=== PATIENT | female | born 1930 | race Caucasian/White ===

== ENCOUNTER 2016-08-27 14:51 | Emergency (ER) | payer OTHER, MEDICARE ==
[~2016-08-27] VITALS: Ht 160 cm; Wt 84.8 kg
[~2016-08-27 14:51] MED LIST: ALPRAZOLAM0.5 M4 PO; AZITHROMYCIN500 M3 PO; CYMBALTA30 M1 PO; LISINOPRIL40 M1 PO; MIRALAX119 GM PO; PREDNISONE10 M2 PO; PRILOSEC40 MG PO; SENNA PLUS TAB1 EACH PO; SUCRALFATE1 GM PO; SYMBICORT 16010.2 GM INH
--- NOTE | 2016-08-27 16:26 | ED DYSPNEA/ASTHMA COMPLAINT ---
History of Present Illness General Chief Complaint: Wheezing/Asthma Stated Complaint: SOB Source: patient, family, old records Exam Limitations: no limitations Vital Signs & Intake/Output Vital Signs & Intake/Output Vital Signs Date Time Temp Pulse Resp B/P Pulse O2 O2 Flow FiO2 Ox Delivery Rate 08/27 1701 90 22 136/68 97 Nasal 1.0L Cannula 08/27 1619 96 Nasal 1.0L Cannula 08/27 1525 97.7 98 18 143/76 89 Room Air Allergies Coded Allergies: Penicillins (VAGINAL ITCH 06/11/16) prednisone (DEPRESSION 06/11/16) Reconcile Medications Alprazolam 0.5 MG TABLET 0.5 MG PO TID PRN ANXIETY (Reported) Azithromycin 500 MG TABLET 1 TAB PO DAILY COPD Budesonide/Formoterol Fumarate (Symbicort 160-4.5 Mcg Inhaler) 160 MCG-4.5 MCG/ ACTUATION HFA.AER.AD 2 PUF INH BID COPD (Reported) Duloxetine Hydrochloride (Cymbalta) 30 MG CAPSULE.DR 1 CAP PO DAILY ANXIETY ( Reported) Lisinopril 40 MG TABLET 40 MG PO DAILY AC HIGH BLOOD PRESSURE (Reported) Omeprazole (Prilosec) 40 MG ECC 1 TAB PO DAILY GERD Polyethylene Glycol 3350 (Miralax) 17 GRAM/DOSE POWDER 17 GM PO DAILY PRN CONSTIPATION Prednisone 10 MG TABLET 1 TAB PO SI COPD TAKE 4TABLETS FOR 2DAYS TAKE 3TABLETS FOR 2DAYS TAKE 2TABLETS FOR 2DAYS TAKE 1TABLET FOR 2DAYS THEN STOP PREDNISONE Sennosides/Docusate Sodium (Senna Plus Tablet) 8.6 MG-50 MG TABLET 2 TAB PO DAILY PRN CONSTIPATION Sucralfate 1 GRAM TABLET 1 TAB PO TID GERD Triage Note: PT C/O SOB FOR THE PAST FEW DAYS. PT STATES SHE HAS BRONCHIAL ASTHMA AND IS ON INHALERS BUT SHE IS GETTING INCREASED SOB WITH ACTIVITY THAT STARTED TODAY. Triage Nurses Notes Reviewed? yes Onset: 2 days Duration: day(s):, continues in ED, getting worse Timing: recent history Severity: severe Activities at Onset: rest Prior Episodes/Possible Cause: occasional episodes, illness exposure Modifying Factors: Improves With: rest. Worsens With: movement. Associated Symptoms: cough, wheezing, weakness LMP (ages 10-50): post menopausal : No Patient currently breastfeeds: No HPI: 3-4 weeks prior to admission patient complains of productive cough shortness of breath resolving on its own only to recur several days prior to admission with dyspnea on exertion wheezing fatigue. She was started on Ceclor 5 days ago. She denies fever chills nausea vomiting diarrhea abdominal pain chest pain headache dysuria rash bleeding Past History Travel History Traveled to [place] past 21 day No Medical History Any Pertinent Medical History? see below for history Neurological: NONE EENT: NONE Cardiovascular: HTN, Respiratory: COPD, ASTHMA Gastrointestinal: GERD, HIATAL HERNIA Hepatic: NONE Renal: NONE Musculoskeletal: NONE Psychiatric: anxiety Endocrine: NONE Blood Disorders: NONE History of MRSA: No History of VRE: No History of CDIFF: No Pneumonia Vaccine: 05/31/14 Influenza Vaccine: 04/30/16 Surgical History Surgical History: non-contributory Psychosocial History Who do you live with Family What is your primary language Norwegian Tobacco Use: Quit >30 days ago ETOH Use: denies use Illicit Drug Use: denies illicit drug use Family History Family History, If Any: MOTHER (uterine cancer). FATHER (Heart disease). Hx Contributory? No Review of Systems Review of Systems Constitutional: Reports: no symptoms. EENTM: Reports: no symptoms. Respiratory: Reports: see HPI, short of breath, sputum production, wheezing. Cardiovascular: Reports: no symptoms. GI: Reports: no symptoms. Genitourinary: Reports: no symptoms. Musculoskeletal: Reports: no symptoms. Skin: Reports: no symptoms. Neurological/Psychological: Reports: no symptoms. Hematologic/Endocrine: Reports: no symptoms. Immunologic/Allergic: Reports: no symptoms. All Other Systems: Reviewed and Negative Physical Exam Physical Exam General Appearance: well developed/nourished, alert, awake, anxious, severe distress, obese Head: atraumatic, normal appearance Eyes: Bilateral: normal appearance, PERRL, EOMI. Ears, Nose, Throat: normal pharynx, normal ENT inspection Neck: normal inspection, supple, full range of motion, no midline tenderness Respiratory: chest non-tender, decreased breath sounds, wheezing, respiratory distress Cardiovascular: regular rate/rhythm, normal peripheral pulses, norml femoral pulses equa Peripheral Pulses: 4+ carotid (R), 4+ carotid (L), 2+ radial (R), 2+ radial (L) Gastrointestinal: normal bowel sounds, soft, non-tender, no organomegaly Extremities: normal inspection, normal capillary refill, normal range of motion, no edema Neurologic/Psych: no motor/sensory deficits, awake, alert, oriented x 3, normal gait, normal mood/affect, mechanics handyman II-XII nml as tested Skin: intact, normal color, warm/dry Lymphatic: no anterior cervical renae Core Measures ACS in differential dx? Yes Severe Sepsis Present: No Septic Shock Present: No Progress Differential Diagnosis: asthma, bronchitis, COPD, pneumonia Plan of Care: Orders Procedure Date/time Status TROPONIN LEVEL 08/27 1606 Complete MAGNESIUM 08/27 1606 Complete COMPREHENSIVE METABOLIC PANEL 08/27 1606 Complete CBC WITHOUT DIFFERENTIAL 08/27 1606 Complete B-TYPE NATRIURETIC PEP (BNP) 08/27 160 Complete EKG 08/27 1453 Active Current Medications Sig/Narcisa Start time Last Medication Dose Stop Time Status Admin Albuterol Sulfate 3 ML ONCE ONE 08/27 1814 UNVr (Proventil) 08/27 181 Laboratory Tests 08/27/16 1615: Anion Gap 9, Estimated GFR 43 L, BUN/Creatinine Ratio 14.2, Glucose 130 H, Calcium 8.9, Magnesium 1.9, Total Bilirubin 0.5, AST 19, ALT 27, Alkaline Phosphatase 96, Troponin I < 0.01, Spw-[id number]-[id number] Pept 536 H, Total Protein 6.3, Albumin 3.3 L, Globulin 3.0, Albumin/Globulin Ratio 1.1, CBC w Diff NO MAN DIFF REQ, RBC 4.05 L, MCV 83.1, MCH 27.5, RDW 14.8 H, MPV 8.3, Gran % 70.1, Lymphocytes % 16.3 L, Monocytes % 8.1, Eosinophils % 4.3, Basophils % 1.2, Absolute Granulocytes 5.6, Absolute Lymphocytes 1.3, Absolute Monocytes 0.6, Absolute Eosinophils 0.3, Absolute Basophils 0.1, PUBS MCHC 33.1 Diagnostic Imaging: Viewed by Me: Radiology Read. Discussed w/RAD: Radiology Read. Initial ED EKG: normal axis, normal intervals, normal p-waves, normal QRS complex, normal sinus rhythm, no ST T wave changes Comments: Patient advised hospitalization. She declines at this time. Departure Departure Time of Disposition: 1829 Disposition: HOME OR SELF CARE Condition: Stable Clinical Impression Primary Impression: Asthma with acute exacerbation in adult Secondary Impressions: Bronchitis with asthma, acute Referrals: CRYS RAMIREZ,KESHAV (PCP/Family) Additional Instructions: Albuterol nebulized every 4-6 hours as needed for shortness of breath and wheezing Departure Forms: Customer Survey General Discharge Information Prescriptions: Current Visit Scripts Prednisone 1 TAB PO BID #10 TAB Critical Care Note Critical Care Note Critical Care Time: 30-74 min (40)
[2016-08-27 16:29] LABS: ABSOLUTE BASOPHIL COUNT 0.1 /CUMM (0.0-0.2); ABSOLUTE EOSINOPHIL COUNT 0.3 /CUMM (0.0-0.7); ABSOLUTE GRANULOCYTE CT 5.6 /CUMM (1.4-6.5); ABSOLUTE LYMPH COUNT 1.3 /CUMM (1.2-3.4); ABSOLUTE MONOCYTE COUNT 0.6 /CUMM (0.10-0.60); BASOPHIL % 1.2 % (0.0-2.0); EOSINOPHIL % 4.3 % (0-5); GRANULOCYTE % 70.1 % (42.2-75.2); HEMATOCRIT 33.7 % (37-47); MEAN CORPUSCULAR HGB 27.5 PG (27.0-31.0); MEAN CORPUSCULAR HGB CONC 33.1 G/DL (33.0-37.0); MEAN CORPUSCULAR VOLUME 83.1 FL (81.0-99.0); MEAN PLATELET VOLUME 8.3 FL (7.4-10.4); PLATELET COUNT 228 /CUMM (130-400); RBC DISTRIBUTION WIDTH 14.8 % (11.5-14.5); RED BLOOD CELL CT 4.05 /CUMM (4.20-5.40)
[2016-08-27 17:01] VITALS: BP 136/68
--- NOTE | 2016-08-27 17:25 | RADIOLOGY REPORT ---
EXAMINATION: XR PORTABLE CHEST CLINICAL INFORMATION: Productive cough, wheezing. Evaluate for pneumonia. COMPARISON: Multiple priors, most recent chest radiograph dated 06/11/2016. TECHNIQUE: Portable AP view of the chest was obtained. FINDINGS: Limited evaluation of the right lung base secondary to patient body habitus and portable technique. No right upper lobe or left lung focal consolidation. No pneumothorax or left-sided pleural effusion. Prominent cardiomediastinal silhouette. No abnormal soft tissue calcification. IMPRESSION: 1. Limited evaluation of the right lung base secondary to body habitus and portable technique. Upright AP and lateral radiographs could help further evaluate if clinically indicated and the patient is able to tolerate the examination. 2. Mild cardiomegaly.
[2016-08-27] MEDS ORDERED: PREDNISONE20 M1 PO (18:05)
== END 2016-08-27 18:36 ==
LOC: ERH 14:51
PROVIDERS: Emergency Medicine
DX: J45.901 Unspecified asthma with (acute) exacerbation (principal)
CPT/HCPCS: 1263; 93005; 93010; 96374; J2930

== ENCOUNTER 2016-09-02 18:27 | Inpatient (IN) | payer OTHER, MEDICARE ==
[~2016-09-02] VITALS: Ht 157.5 cm; Wt 83.5 kg
[~2016-09-02 18:27] MED LIST changes: +PREDNISONE20 M1 PO
--- NOTE | 2016-09-02 18:48 | NUR ---
86 Y/O FEMALE C/O WORSENING SOB - WAS EVAL'D FOR SAME LAST WEEK (IN ED) AND STATES "THEY WANTED TO ADMIT ME BUT I WANTED TO GO HOME". PT STATES SHE HAS BEEN ON A PREDNISONE TAPER (LAST DOSE THIS AM) WITH NO RELIEF OF SYMPTOMS; HAS ALSO BEEN USING HER INHALERS/TX AT HOME WITH NO RELIEF. SPEAKING CLEAR COMPLETE SENTENCES WITH NO DISTRESS HOWEVER WHEEZING NOTED IN ALL VALENTIN. SAT 89-91% ON RA. DENIES PAIN TAKEN TO ROOM 3 FOR EKG/EVAL
--- NOTE | 2016-09-02 18:53 | ED DYSPNEA/ASTHMA COMPLAINT ---
History of Present Illness General Chief Complaint: Dyspnea (COPD, CHF, Other) Stated Complaint: DIFFICULTY BREATHING Source: patient, family Exam Limitations: no limitations Allergies Coded Allergies: Penicillins (VAGINAL ITCH 06/11/16) Triage Note: 86 Y/O FEMALE C/O WORSENING SOB - WAS EVAL'D FOR SAME LAST WEEK (IN ED) AND STATES "THEY WANTED TO ADMIT ME BUT I WANTED TO GO HOME". PT STATES SHE HAS BEEN ON A PREDNISONE TAPER (LAST DOSE THIS AM) WITH NO RELIEF OF SYMPTOMS; HAS ALSO BEEN USING HER INHALERS/TX AT HOME WITH NO RELIEF. SPEAKING CLEAR COMPLETE SENTENCES WITH NO DISTRESS HOWEVER WHEEZING NOTED IN ALL VALENTIN. SAT 89-91% ON RA. DENIES PAIN TAKEN TO ROOM 3 FOR EKG/EVAL Triage Nurses Notes Reviewed? yes HPI: This patient is an 86-year-old female with a past medical history including COPD and asthma who presented to the emergency department today for evaluation of difficulty breathing. The patient reported that she was seen here in the emergency department earlier in the week and it was recommended to her that she be admitted to the hospital, "but I didn't want to so I left." The patient reported that since then her breathing has worsened. She reported that her breathing gets worse with exertion. She denied any chest pain, palpitations, jaw pain, arm pain, abdominal pain, nausea, vomiting, diarrhea, fevers, chills, or any visual changes from baseline. The patient has been using her inhalers and nebulizer machine at home without any relief of her symptoms. The patient does have a cough productive of green sputum. (JULIETH GAMBLE,MELLISA) Vital Signs & Intake/Output Vital Signs & Intake/Output Vital Signs Date Time Temp Pulse Resp B/P Pulse O2 O2 Flow FiO2 Ox Delivery Rate 09/04 1425 98.8 103 18 140/80 93 09/04 1007 90 158/80 09/04 0924 93 Nasal 1.0L Cannula 09/04 0800 94 Nasal 2.0L Cannula 09/04 0702 98.5 85 20 160/84 96 Nasal 2.0L Cannula 09/04 0000 Nasal 2.0L Cannula 09/03 2247 98.0 101 20 148/70 96 Nasal 2.0L Cannula 09/03 2110 96 Nasal 2.0L Cannula 09/03 1645 96 Nasal 2.0L Cannula 09/03 1600 Nasal 2.0L Cannula ED Intake and Output 09/04 0000 02/04 1200 Intake Total 1600 120 Output Total Balance 1600 120 Intake, IV 300 Intake, Oral 1300 120 Patient 184 lb Weight Reconcile Medications Alprazolam 0.5 MG TABLET 0.5 MG PO TID PRN ANXIETY (Reported) Duloxetine Hydrochloride (Cymbalta) 30 MG CAPSULE.DR 1 CAP PO DAILY DEPRESSION (Reported) Fluticasone/Vilanterol (Breo Ellipta 100-25 Mcg INH) 100 MCG-25 MCG/DOSE BLST.W.DEV 1 PUFF INH DAILY COPD/ASTHMA (Reported) Guaifenesin/Dextromethorphan (Guaifenesin Dm Syrup) (Unknown Strength) SYRUP ( Unknown Dose) PO ONCE COUGH (Reported) Ipratropium/Albuterol Sulfate (Iprat-Albut 0.5-3(2.5) MG/3 Ml) 0.5 MG-3 MG (2.5 MG BASE)/3 ML AMPUL.NEB 1 VIAL INH 4 TIMES/DAY COPD/ASTHMA (Reported) Lisinopril 40 MG TABLET 40 MG PO DAILY AC HIGH BLOOD PRESSURE (Reported) Omeprazole (Prilosec) 40 MG ECC 1 TAB PO DAILY GERD Prednisone 20 MG TABLET 1 TAB PO BID bronchospasm (RADHA RAMIREZ,ANALISA Arana) Past History Travel History Traveled to [place] past 21 day No Medical History Any Pertinent Medical History? see below for history Neurological: NONE EENT: NONE Cardiovascular: HTN, Respiratory: COPD, ASTHMA Gastrointestinal: GERD, HIATAL HERNIA Hepatic: NONE Renal: NONE Musculoskeletal: NONE Psychiatric: anxiety Endocrine: NONE Blood Disorders: NONE History of MRSA: No History of VRE: No History of CDIFF: No Surgical History Surgical History: non-contributory Psychosocial History Who do you live with Family What is your primary language Syriac Tobacco Use: Quit >30 days ago Family History Family History, If Any: MOTHER (uterine cancer). FATHER (Heart disease). Hx Contributory? No (JULIETH GAMBLE,MELLISA) Review of Systems Review of Systems Constitutional: Reports: no symptoms. EENTM: Reports: no symptoms. Respiratory: Reports: see HPI. Cardiovascular: Reports: no symptoms. GI: Reports: no symptoms. Genitourinary: Reports: no symptoms. Musculoskeletal: Reports: no symptoms. Skin: Reports: no symptoms. Neurological/Psychological: Reports: no symptoms. All Other Systems: Reviewed and Negative (JULIETH GAMBLE,MELLISA) Physical Exam Physical Exam Respiratory: chest non-tender, mild respiratory distress. no accessory muscle usage. scattered wheezes and rhonchi. no rales. no diminished breath sounds or stridor. speaking in full sentences Comments: Well-developed well-nourished person in no acute distress HEENT: Normal EENT exam, head normocephalic, moist mucous membranes Pupils equally round and reactive to light. Pharynx normal. No swelling or edema. Neck: Supple, no lymphadenopathy Back: Normal gait. Normal inspection Cardiovascular: Regular rate and rhythm with no murmurs, rubs, or gallops Respiratory: Chest nontender. No respiratory distress. Breath sounds clear to auscultation bilaterally Extremity: Normal and equal pulses Neuro: Alert oriented x3, cranial nerves II through XII grossly intact. Skin: No appreciable rash on exposed skin, skin is warm and dry. Psych: Mood and affect is normal Core Measures ACS in differential dx? Yes Severe Sepsis Present: No Septic Shock Present: No (JULIETH GAMBLE,MELLISA) Progress Differential Diagnosis: asthma, AMI, bronchitis, costochondritis, CHF, COPD, musculoskeletal pain, pericarditis, pulmonary embolism, pneumonia, unstable angina Diagnostic Imaging: Viewed by Me: Radiology Read. Discussed w/RAD: Radiology Read. CXR Impression: PATIENT: TREE WINTERS PRESENT AGE: 86 PATIENT ACCOUNT NO: [id number] : 32 LOCATION: [facility] ORDERING PHYSICIAN: MELLISA CLANCY PA-C SERVICE DATE: 09/02/16 EXAM TYPE: RAD - XRY-CHEST XRAY, PA AND LATERAL EXAMINATION: XR CHEST CLINICAL INFORMATION: Shortness of breath. COMPARISON: 08/27/2016 TECHNIQUE: 2 views of the chest were obtained. FINDINGS: The lungs are well expanded. Left basilar airspace opacity noted in the retrocardiac region. No edema or effusion. No pneumothorax. The cardiomediastinal silhouette is unchanged, with a calcified aorta. Degenerative changes of the spine. IMPRESSION: Left lower lobe airspace opacity may represent atelectasis or pneumonia. Follow-up to resolution. DICTATED BY: JOSEPHINE RAMIREZ, CARLA DATE/TIME DICTATED:09/02/161923 GRAIN FARMER:KARENA DATE/TIME TRANSCRIBED:09/02/161923 CONFIDENTIAL, DO NOT COPY WITHOUT APPROPRIATE AUTHORIZATION. <Electronically signed in Other Vendor System> SIGNED BY: JOSEPHINE RAMIREZ,CARLA 09/02/161928 Initial ED EKG: no ST T wave changes, sinus tachycardia, 99 bpm, atrial premature complex (JULIETH GAMBLE,MELLISA) Plan of Care: Orders Procedure Date/time Status CBC WITHOUT DIFFERENTIAL 09/05 599 Active BASIC ELECTROLYTES PLUS BUN&CR 09/05 599 Active MISSING MEDICATION FORM 09/04 UNK Active Current Medications Sig/Narcisa Start time Last Medication Dose Stop Time Status Admin Amoxicillin/ 875 MG Q12 09/05 1000 AC Clavulanate Potassium (Augmentin) Prednisone 60 MG DAILY 09/05 1000 AC Acetaminophen 650 MG Q6P PRN 09/03 0130 AC (Tylenol) Laboratory Tests 09/04/1635: CBC w Diff NO MAN DIFF REQ, RBC 4.09 L, MCV 83.3, MCH 27.2, RDW 14.8 H, MPV 8.5, Gran % 90.8 H, Lymphocytes % 6.7 L, Monocytes % 2.4, Eosinophils % 0, Basophils % 0.1, Absolute Granulocytes 15.1 H, Absolute Lymphocytes 1.1 L, Absolute Monocytes 0.4, Absolute Eosinophils 0, Absolute Basophils 0, PUBS MCHC 32.6 L Departure Departure Disposition: STILL A PATIENT Condition: Stable Clinical Impression Primary Impression: Pneumonia Qualifiers: Pneumonia type: due to unspecified organism Laterality: right Lung location: unspecified part of lung Qualified Code: J18.9 - Pneumonia, unspecified organism Secondary Impressions: Hypoxia Referrals: CRYS RAMIREZ,KESHAV (PCP/Family) Departure Forms: Customer Survey General Discharge Information Admission Note Spoke With: ROSA SALMON MD Documentation of Exam: Documentation of any treatments & extenuating circumstances including Concerns Regarding Discharge (functional status, medication knowledge or non-compliance, living conditions, etc.) that warrant an admission rather than observation: [ THIS PATIENT IS AN 86 YEAR OLD FEMALE WITH A PAST MEDICAL HISTORY INCLUDING COPD AND ASTHMA WHO PRESENTED FOR WORSENING SHORTNESS OF BREATH SINCE MONDAY. WBC COUNT 13.2. LEFT LOWER LOBE PNEUMONIA ON CHEST X-RAY. HYPOXIC AT 89% ON ROOM AIR. SHE WILL NEED ADMISSION FOR IV ANTIBIOTICS, PULSE OX MONITORING, FOLLOW-UP BLOOD CULTURES, PULMONOLGY CONSULT, AND CLOSE MONITORING. PREMATURE DISCHARGE COULD PROVE MEDICALLY HARMFUL.] (MELLISA CLANCY PA-C) PA/SERVICE STATION CONSOLE OPERATOR Co-Sign Statement Statement: ED Attending supervision documentation- [] I saw and evaluated the patient. I have also reviewed all the pertinent lab results and diagnostic results. I agree with the findings and the plan of care as documented in the PA's/SERVICE STATION CONSOLE OPERATOR's documentation. [x] I have reviewed the ED Record and agree with the PA's/SERVICE STATION CONSOLE OPERATOR's documentation. [] Additions or exceptions (if any) to the PAs/SERVICE STATION CONSOLE OPERATOR's note and plan are summarized below: [] (RADHA RAMIREZ,ANALISA Arana) Critical Care Note Critical Care Note Critical Care Time: non-applicable (JULIETH GAMBLE,MELLISA) (Xanax) 09/09 462 Laboratory Tests 09/02/16 1950: pH 7.45, pCO2 37, pO2 93, HCO3 25, ABG O2 Sat (Measured) 97.0, Carboxyhemoglobin 0.6 L, O2 Concentration % 6L, O2 Delivery Method NEBULIZER TREATMENT, Phlebotomy Draw Site LEFT BRACHIAL 09/02/16 1928: Anion Gap 9, Estimated GFR 47 L, BUN/Creatinine Ratio 19.1, Glucose 102 H, Calcium 9.2, Magnesium 1.9, Total Bilirubin 0.7, AST 21, ALT 39, Alkaline Phosphatase 120, Troponin I < 0.01, Vux-J-Auvtftlfjei Pept 1020 H, Total Protein 7.2, Albumin 3.6, Globulin 3.6, Albumin/Globulin Ratio 1.0 L, CBC w Diff MAN DIFF ORDERED, RBC 4.60, MCV 83.4, MCH 27.2, RDW 15.2 H, MPV 8.1, Gran % 81.2 H, Lymphocytes % 10.5 L, Monocytes % 7.6, Eosinophils % 0.5, Basophils % 0.2, Absolute Granulocytes 15.2 H, Segmented Neutrophils 77 H, Absolute Lymphocytes 2.0, Lymphocytes 13 L, Monocytes 10 H, Absolute Monocytes 1.4 H, Absolute Eosinophils 0.1, Absolute Basophils 0, Platelet Estimate VERIFIED BY SMEAR, Normocytic RBCs VERIFIED, Normochromic RBCs VERIFIED, PUBS MCHC 32.6 L, Fld Total RBCs Counted 100 Microbiology 09/02 2330 BLOOD: Blood Culture - COLB 09/02 2300 LOWER RESP: Respiratory Culture - COLB 09/02 2299 LOWER RESP: Gram Stain - COLB 09/02 2299 BLOOD: Blood Culture - COLB Diagnostic Imaging: Viewed by Me: Radiology Read. Discussed w/RAD: Radiology Read. CXR Impression: PATIENT: TREE WINTERS PRESENT AGE: 86 PATIENT ACCOUNT NO: [id number] : 32 LOCATION: [facility] ORDERING PHYSICIAN: MELLISA CLANCY PA-C SERVICE DATE: 09/02/16 EXAM TYPE: RAD - XRY-CHEST XRAY, PA AND LATERAL EXAMINATION: XR CHEST CLINICAL INFORMATION: Shortness of breath. COMPARISON: 08/27/2016 TECHNIQUE: 2 views of the chest were obtained. FINDINGS: The lungs are well expanded. Left basilar airspace opacity noted in the retrocardiac region. No edema or effusion. No pneumothorax. The cardiomediastinal silhouette is unchanged, with a calcified aorta. Degenerative changes of the spine. IMPRESSION: Left lower lobe airspace opacity may represent atelectasis or pneumonia. Follow-up to resolution. DICTATED BY: CARLA BURTON MD DATE/TIME DICTATED:09/02/161923 GRAIN FARMER:KARENA DATE/TIME TRANSCRIBED:09/02/161923 CONFIDENTIAL, DO NOT COPY WITHOUT APPROPRIATE AUTHORIZATION. <Electronically signed in Other Vendor System> SIGNED BY: CARLA BURTON MD 09/02/161928 Initial ED EKG: no ST T wave changes, sinus tachycardia, 99 bpm, atrial premature complex (JULIETH GAMBLE,MELLISA) Departure Departure Disposition: STILL A PATIENT Condition: Stable Clinical Impression Primary Impression: Pneumonia Qualifiers: Pneumonia type: due to unspecified organism Laterality: right Lung location: unspecified part of lung Qualified Code: J18.9 - Pneumonia, unspecified organism Secondary Impressions: Hypoxia Referrals: KESHAV SPANGLER MD (PCP/Family) Departure Forms: Customer Survey General Discharge Information Admission Note Spoke With: ROSA SALMON MD Documentation of Exam: Documentation of any treatments & extenuating circumstances including Concerns Regarding Discharge (functional status, medication knowledge or non-compliance, living conditions, etc.) that warrant an admission rather than observation: [ THIS PATIENT IS AN 86 YEAR OLD FEMALE WITH A PAST MEDICAL HISTORY INCLUDING COPD AND ASTHMA WHO PRESENTED FOR WORSENING SHORTNESS OF BREATH SINCE MONDAY. WBC COUNT 13.2. LEFT LOWER LOBE PNEUMONIA ON CHEST X-RAY. HYPOXIC AT 89% ON ROOM AIR. SHE WILL NEED ADMISSION FOR IV ANTIBIOTICS, PULSE OX MONITORING, FOLLOW-UP BLOOD CULTURES, PULMONOLGY CONSULT, AND CLOSE MONITORING. PREMATURE DISCHARGE COULD PROVE MEDICALLY HARMFUL.] (JULIETH GAMBLE,MELLISA) PA/SERVICE STATION CONSOLE OPERATOR Co-Sign Statement Statement: ED Attending supervision documentation- [] I saw and evaluated the patient. I have also reviewed all the pertinent lab results and diagnostic results. I agree with the findings and the plan of care as documented in the PA's/SERVICE STATION CONSOLE OPERATOR's documentation. [x] I have reviewed the ED Record and agree with the PA's/SERVICE STATION CONSOLE OPERATOR's documentation. [] Additions or exceptions (if any) to the PAs/SERVICE STATION CONSOLE OPERATOR's note and plan are summarized below: [] (RADHA RAMIREZ,ANALISA Arana) Critical Care Note Critical Care Note Critical Care Time: non-applicable (JULIETH GAMBLE,MELLISA)
--- NOTE | 2016-09-02 19:10 | NUR ---
RECIEVED REPORT FROM FABIENNE BAUTISTA PT IS IN RADIOLOGY AT THIS TIME
--- NOTE | 2016-09-02 19:25 | NUR ---
PT CHANGED IN HOSPITAL GOWN. SATTING 89% ON RA, PLACED ON 2L NC SATTING 95%. IV ESTABLISHED #20 RAC. MEDICATED WITH SOLUMEDROL PER ORDER (SEE MAR). RESP. HERWE FOR TX.
--- NOTE | 2016-09-02 19:29 | RADIOLOGY REPORT ---
EXAMINATION: XR CHEST CLINICAL INFORMATION: Shortness of breath. COMPARISON: 08/27/2016 TECHNIQUE: 2 views of the chest were obtained. FINDINGS: The lungs are well expanded. Left basilar airspace opacity noted in the retrocardiac region. No edema or effusion. No pneumothorax. The cardiomediastinal silhouette is unchanged, with a calcified aorta. Degenerative changes of the spine. IMPRESSION: Left lower lobe airspace opacity may represent atelectasis or pneumonia. Follow-up to resolution.
--- NOTE | 2016-09-02 19:50 | NUR ---
LABS WALKED OVER (1LAV,1SST,1GRAY,1BLUE,1 PINK).
[2016-09-02 19:57] LABS: ABSOLUTE BASOPHIL COUNT 0 /CUMM (0.0-0.2); ABSOLUTE EOSINOPHIL COUNT 0.1 /CUMM (0.0-0.7); ABSOLUTE GRANULOCYTE CT 15.2 /CUMM (1.4-6.5); ABSOLUTE MONOCYTE COUNT 1.4 /CUMM (0.10-0.60); BASOPHIL % 0.2 % (0.0-2.0); EOSINOPHIL % 0.5 % (0-5); GRANULOCYTE % 81.2 % (42.2-75.2); HEMATOCRIT 38.3 % (37-47); MEAN CORPUSCULAR HGB 27.2 PG (27.0-31.0); MEAN CORPUSCULAR HGB CONC 32.6 G/DL (33.0-37.0); MEAN CORPUSCULAR VOLUME 83.4 FL (81.0-99.0); MEAN PLATELET VOLUME 8.1 FL (7.4-10.4); PLATELET COUNT 295 /CUMM (130-400); RBC DISTRIBUTION WIDTH 15.2 % (11.5-14.5)
[2016-09-02 20:03] LABS: WHITE BLOOD CELL COUNT 18.7 /CUMM (4.8-10.8)
[2016-09-02] MEDS ORDERED: BREO ELLIPTA 11 EACH INH (20:50)
[2016-09-02] MEDS ORDERED: IPRAT-ALBUT 0.5-3 ML INH (20:51)
[2016-09-02] MEDS ORDERED: GUAIFENESIN DM S5 ML PO (20:54)
--- NOTE | 2016-09-02 21:21 | NUR ---
HOUSE STAFF AT BEDSIDE
--- NOTE | 2016-09-02 21:56 | NUR ---
Emergency Dept [facility] Admit Note: To be admitted to [facility] by DR SALMON with PNEUMONIA as the diagnosis, to [facility]/ ROOM 231-1 location. Nursing Checkering Machine Adjuster and admitting notified 09/02/16 at 8137
--- NOTE | 2016-09-02 22:14 | History & Physical ---
BONIFACIO RAMIREZ,JOLIE 09/02/16 2214: General Information and HPI MD Statement: I have seen and personally examined TREE WINTERS and documented this H&P. The patient is a 86 year old F who presented with worsening cough and shortness of breath. Source of Information: patient Exam Limitations: no limitations History of Present Illness: 86-year-old female with past medical history of asthma, COPD, hypertension, GERD , anxiety presented to the emergency department with symptoms of worsening productive cough and shortness of breath. According to patient, she was in her usual state of health until last week of July when she started having cough with shortness of breath and visited the emergency department where she was diagnosed for acute exacerbation of COPD and was suggested to admission for remainder of her treatment which she refused. Since going home, she has been progressively feeling worse, with increased shortness of breath and cough with greenish sputum, and wheezing that has brought to the emergency department again. She did try her respiratory medications including inhalers at home with no improvement. She denied any fever, chest pain, palpitation, nausea, vomiting, dizziness, swelling of legs, changes in bowel or bladder habit. Allergies/Medications Allergies: Coded Allergies: Penicillins (VAGINAL ITCH 06/11/16) Home Med list Alprazolam 0.5 MG TABLET 0.5 MG PO TID PRN ANXIETY (Reported) Duloxetine Hydrochloride (Cymbalta) 30 MG CAPSULE.DR 1 CAP PO DAILY DEPRESSION (Reported) Fluticasone/Vilanterol (Breo Ellipta 100-25 Mcg INH) 100 MCG-25 MCG/DOSE BLST.W.DEV 1 PUFF INH DAILY COPD/ASTHMA (Reported) Guaifenesin/Dextromethorphan (Guaifenesin Dm Syrup) (Unknown Strength) SYRUP ( Unknown Dose) PO ONCE COUGH (Reported) Ipratropium/Albuterol Sulfate (Iprat-Albut 0.5-3(2.5) MG/3 Ml) 0.5 MG-3 MG (2.5 MG BASE)/3 ML AMPUL.NEB 1 VIAL INH 4 TIMES/DAY COPD/ASTHMA (Reported) Lisinopril 40 MG TABLET 40 MG PO DAILY AC HIGH BLOOD PRESSURE (Reported) Omeprazole (Prilosec) 40 MG ECC 1 TAB PO DAILY GERD Prednisone 20 MG TABLET 1 TAB PO BID bronchospasm Past History Travel History Traveled to [place] past 21 day No Medical History Neurological: NONE EENT: NONE Cardiovascular: HTN, Respiratory: COPD, ASTHMA Gastrointestinal: GERD, HIATAL HERNIA Hepatic: NONE Renal: NONE Musculoskeletal: NONE Psychiatric: anxiety Endocrine: NONE Blood Disorders: NONE History of MRSA: No History of VRE: No History of CDIFF: No Surgical History Surgical History: non-contributory Past Family/Social History Family History Relations & Conditions if any MOTHER (uterine cancer). FATHER (Heart disease). Psychosocial History Where do you live? Home Primary Language: Portuguese Smoking Status: Former Smoker (20pack year hx) Functional Ability ADLs Independent: dressing, eating, toileting, bathing. Ambulation: independent IADLs Independent: shopping, housework, finances, food prep, telephone, transportation , medication admin. Review of Systems Review of Systems Constitutional: Reports: no symptoms. EENTM: Reports: no symptoms. Cardiovascular: Reports: no symptoms. Respiratory: Reports: see HPI, cough, short of breath, sputum production, wheezing. GI: Reports: no symptoms. Genitourinary: Reports: no symptoms. Musculoskeletal: Reports: no symptoms. Skin: Reports: no symptoms. Neurological/Psychological: Reports: no symptoms. Hematologic/Endocrine: Reports: no symptoms. All Other Systems: Reviewed and Negative Post Menopausal: Yes Exam & Diagnostic Data Last 24 Hrs of Vital Signs/I&O Vital Signs Date Time Temp Pulse Resp B/P Pulse O2 O2 Flow FiO2 Ox Delivery Rate 09/03 0119 Nasal 2.0L Cannula 09/03 0036 98.9 87 20 144/80 94 Nasal 2.0L Cannula 09/02 2223 100.1 97 18 162/87 95 Nasal 2.0L Cannula 09/02 2114 100.1 100 18 182/87 95 Room Air 2.0L 09/02 2000 95 Room Air 2.0L 09/02 1958 94 Nasal 2.0L Cannula 09/02 1838 99.3 106 18 160/87 89 Room Air Intake & Output 09/03 0800 09/03 0000 09/02 1600 Intake Total 0 Output Total Balance 0 Intake, Oral 0 Patient 83.461 kg 83.461 kg Weight Physical Exam General Appearance Alert, Oriented X3, Cooperative, Mild Distress, on additional oxygen via NC Last 24 Hrs of Labs/Juan: Laboratory Tests 09/02/16 1950: pH 7.45, pCO2 37, pO2 93, HCO3 25, ABG O2 Sat (Measured) 97.0, Carboxyhemoglobin 0.6 L, O2 Concentration % 6L, O2 Delivery Method NEBULIZER TREATMENT, Phlebotomy Draw Site LEFT BRACHIAL 09/02/161927: Anion Gap 9, Estimated GFR 47 L, BUN/Creatinine Ratio 19.1, Glucose 102 H, Calcium 9.2, Magnesium 1.9, Total Bilirubin 0.7, AST 21, ALT 39, Alkaline Phosphatase 120, Troponin I < 0.01, Men-Y-Ihgmxravivh Pept 1020 H, Total Protein 7.2, Albumin 3.6, Globulin 3.6, Albumin/Globulin Ratio 1.0 L, CBC w Diff MAN DIFF ORDERED, RBC 4.60, MCV 83.4, MCH 27.2, RDW 15.2 H, MPV 8.1, Gran % 81.2 H, Lymphocytes % 10.5 L, Monocytes % 7.6, Eosinophils % 0.5, Basophils % 0.2, Absolute Granulocytes 15.2 H, Segmented Neutrophils 77 H, Absolute Lymphocytes 2.0, Lymphocytes 13 L, Monocytes 10 H, Absolute Monocytes 1.4 H, Absolute Eosinophils 0.1, Absolute Basophils 0, Platelet Estimate VERIFIED BY SMEAR, Normocytic RBCs VERIFIED, Normochromic RBCs VERIFIED, PUBS MCHC 32.6 L, Fld Total RBCs Counted 100 Microbiology 09/02 2329 BLOOD: Blood Culture - COLB 09/02 2299 LOWER RESP: Respiratory Culture - COLB 09/02 2299 LOWER RESP: Gram Stain - COLB 09/02 2299 BLOOD: Blood Culture - COLB Diagnostic Data EKG Results Normal sinus rhythm, heart rate 100, normal intervals, no ST-T changes CXR Results Left lower lobe airspace opacity may represent atelectasis or pneumonia. Follow-up to resolution. DICTATED BY: JOSEPHINE RAMIREZ,CARLA DATE/TIME DICTATED:09/02/161923 TAILOR FITTER:KARENA DATE/TIME TRANSCRIBED:09/02/161923 Other Results Physical examnination: General: obese patient not in distress Head: Normocephalic, atraumatic Eyes: Pupils normal in size, regular, reacting to light and accommodation, EOM normal Ears: B/l normal on inspection Nose: Normal on inspection Throat/mouth: Moist mucosa Neck: Supple, full range of motion, no thyromegaly Heart: Regular rate, regular rhythm Lung: Wheezes heard b/l Abd: Soft, non-tender, no distention appreciated Back: Normal range of motion Extremities: Normal knee exam bilaterally, no pedal edema, Distal neurovascular intact Neurologic: Alert, oriented x3, Cranial exam grossly intact, Speech is clear and coherent Skin: Warm and dry Psychiatric: Calm, cooperative, coherant Assessment/Plan Assessment: 86-year-old female with past medical history of asthma, COPD, hypertension, GERD , anxiety presented to the emergency department with symptoms of worsening productive cough and shortness of breath. Patient is currently being managed in the general medical floor for the following issues: #Acute hypoxic respiratory failure secondary to acute exacerbation of COPD Patient's saturation improved from 89% on room air to 94% with 2 L/m oxygen in the emergency department. Her symptoms are typical of acute exacerbation with increased cough and increased production of sputum, is consistent. However, because of leukocytosis, cough with green sputum production, slight fever of 100.1F, and chest x-ray showing left lower lobe opacity, the patient is likely having pneumonia as a cause of acute exacerbation of COPD. -Patient has been started on ceftriaxone and azithromycin -Total respiratory care with nebulizations with plan to keep oxygen saturation above 90% -Follow-up sputum, blood cultures -Continue methylprednisone for now, with a plan to change to oral steroids later #Continue lisinopril for hypertension #Continue duloxetine for depression #Heart healthy diet #DVT prophylaxis with Lovenox #CODE STATUS: Full code As Ranked By This Provider Problem List: 1. COPD exacerbation Core Measures/Miscellaneous Acute Coronary Syndrome ACS Diagnosis: No Cerebrovascular Accident CVA/TIA Diagnosis: No Congestive Heart Failure CHF Diagnosis: No Venous Thromboembolism VTE Risk Factors: Age > 40, Obesity VTE Prophylaxis Ordered Inpt: Pharm- Heparin No Mech VTE prophylaxis d/t: No contraindications No VTE Pharm Prophylaxis d/t: No contraindications VTE Diagnosis: No VTE Type: NONE VTE Confirmed by (Test): NONE Severe Sepsis Severe Sepsis Present: No Septic Shock Septic Shock Present: No Miscellaneous Documentation Attending Case Discussed With: ROSA SALMON MD Primary Care Physician: CRYS RMAIREZ,KESHAV Patient sees these Specialists Pulmonary medicine at [address] [facility] Level of Patient Care: General Medicine ROSA SALMON 09/02/16 2335: Attending MD Review Statement Attending Statement Attending MD Statement: examined this patient, discuss w/resident/PA/AN/SQQ 89(V)15 SONAR SYSTEM JOURNEYMAN, agreed w/resident/PA/AN/SQQ 89(V)15 SONAR SYSTEM JOURNEYMAN, discussed with family, reviewed EMR data (avail), reviewed images, amended to note Attending Assessment/Plan: CC: worsening of shortness of breath and productive cough PMH : COPD/asthma note on home O2, anxiety/depression, psoriasis, HTN, GERD Patient was in ER August 27 for acute worsening of shortness of breath. At that time she was on Ceclor, patient refused admission for COPD exacerbation at that time so she was discharged on prednisone and was suggested to continue the antibiotics. After going home patient was not improving, progressively worsening shortness of breath, wheezing, productive cough with green colored sputum. She was using rescue inhalers without much relief. Denies chest pain, palpitations, jaw pain, nausea, vomiting, abdominal pain, fever, chills, LOC, dizziness. Vitals: Tmax 100.1, tachycardia, RR 18, BP 160/87, O2 saturation 95% on 2 L NC on exam: A O 3, mild respiratory distress, audible wheezing, neck supple, no lymphadenopathy, no JVD, mucosa dry, no pharyngeal congestion. RS: Extensive wheezing bilaterally. CVS: S1-S2, RRR. Abdomen: Soft, NT, ND, bowel sounds present. No focal neurological deficit. No dependent edema. No obvious skin rashes or inflammation. Labs: WBC 18.7 increased from 8.0 neutrophils 81%, proBNP 1020, otherwise CBC, BMP, LFT unremarkable. AB.45/37/93/25 on 6 L EKG: No significant changes CXR:Left lower lobe airspace opacity may represent atelectasis or pneumonia. A and P #1 acute hypoxic respiratory failure: Probably secondary to COPD exacerbation along with pneumonia #2 suspected left lower lobe pneumonia: Patient has protracted illness since last 2 weeks, without much relief with the tapering dose of steroids and by mouth antibiotics. Persistent cough with sputum production. Even though leukocytosis can be explained by steroids, she has low-grade fever. At this point we will continue to treat her as community-acquired pneumonia with azithromycin and ceftriaxone IV, supportive treatment with O2 by nasal cannula, Mucinex, incentive spirometry, albuterol nebulization, obtain sputum culture, blood culture, gentle hydration, #3 COPD exacerbation: Probably secondary to underlying infection, she has extensive wheezing bilaterally with increased oxygen demand, please continue IV methylprednisolone 40 mg every 8 hours, continue O2 by NC, taper off oxygen, continue albuterol and Atrovent nebulization scheduled and when necessary, incentive spirometry, Mucinex, antibiotics as discussed above. #4 HTN: Continue her home doses of lisinopril. #5 History of anxiety/depression continue home doses of alprazolam, Cymbalta. #6 DVT prophylaxis with Lovenox, adequate pain control. BC RAMIREZ,SULY 09/03/16 0407: Resident Review Statement Resident Statement: examined this patient, discussed with internal communications manager, agreed with internal communications manager Other Findings: 86 YO F with pmh of copd not on home o2, htn, gerd, anxiety presents to ER complaining of shortness of breath with a productive cough that has intensified over the past week. She was recently seen in the ER however declined admission and returned home. Now states that her sob is unbearable and decided to get further treatment. reports cough with expectoration (greenish sputum production) T 100.1, P 100, RR 18, BP 182/87, O2 sat 95 2LNC Alert Oriented x4 CVS S1, S2 w/o m,r,g Resp diffuse wheezing detected in all lung rivas Abdo soft, nontender,nondistended, BS + WBC 18.7, granulocytes, 81.2, probnp 10[address] sr 99, QTc 437 cxr left lower lobe airspace opacity may represent atlectasis or pna Will admit to GM floor for acute respiratory failure due to pna. continue abx for community acquired pna, follow up on bc and sputum cultures, maintain o2 saturation >92%, TRC nebulizers underlying copd present, wll continue IV steroids Q8hrs as needed. watch bp and use home medications to control, continue home medications for psych symptoms. dvt ppx heparin s full code, mild pain pathway
--- NOTE | 2016-09-02 22:18 | NUR ---
CALLED FOR REPORT; WAITING FOR CALLBACK
--- NOTE | 2016-09-02 22:50 | NUR ---
REPORT GIVEN TO FABIENNE HUNTER.
--- NOTE | 2016-09-02 22:54 | NUR ---
HOUSE STAFF AT BEDSIDE.
--- NOTE | 2016-09-02 23:37 | Admission Certification ---
Admission Certification Certification Statement - As attending physician, I certify that at the time of - admission, based on clinical presentation, severity of - symptoms, need for further diagnostic testing and - therapeutic interventions, and risk of adverse outcomes - without in-hospital treatment, in my clinical assessment, - this patient requires an acute hospital stay for a minimum - of two nights or longer. I have also considered psychsocial - factors such as support system, advanced age, financial - issues, cognitive issues, and failed out-patient treatments, - past re-admission history, safety of patient, and lack of - compliance as applicable. Specific rationale supporting this admission is: Acute hypoxic respiratory failure, community-acquired pneumonia, COPD exacerbation
[2016-09-03 00:36] VITALS: BP 144/80
[2016-09-03 06:22] VITALS: BP 118/80
--- NOTE | 2016-09-03 07:55 | PN- Housestaff ---
BC RAMIREZ,SULY 09/03/16 0737: Subjective Follow-up For: shortness of breath Complaints: no complaints Subjective: Feels better after nebulizer treatment Review of Systems Constitutional: Denies: chills, fever. EENTM: Reports: see HPI. Cardiovascular: Denies: chest pain, palpitations, syncope. Respiratory: Reports: cough, short of breath, sputum production, wheezing. Gastrointestinal: Reports: no symptoms. Genitourinary: Reports: no symptoms. Musculoskeletal: Reports: no symptoms. Skin: Reports: no symptoms. Objective Last 24 Hrs of Vital Signs/I&O Vital Signs Date Time Temp Pulse Resp B/P Pulse O2 O2 Flow FiO2 Ox Delivery Rate 09/03 06 97.8 77 20 118/80 96 Nasal 2.0L Cannula 09/03 0119 Nasal 2.0L Cannula 09/03 0036 98.9 87 20 144/80 94 Nasal 2.0L Cannula 09/02 2223 100.1 97 18 162/87 95 Nasal 2.0L Cannula 09/02 2114 100.1 100 18 182/87 95 Room Air 2.0L 09/02 2000 95 Room Air 2.0L 09/02 1958 94 Nasal 2.0L Cannula 09/02 1838 99.3 106 18 160/87 89 Room Air Intake & Output 09/03 0800 09/03 0000 09/02 1600 Intake Total 120 0 Output Total Balance 120 0 Intake, Oral 120 0 Patient 184 lb 184 lb Weight Physical Exam General Appearance: Alert, Oriented X3, Cooperative, No Acute Distress Skin: No Rashes, No Breakdown HEENT: Atraumatic, PERRLA, EOMI Neck: Supple, No JVD Cardiovascular: Regular Rate, Normal S1, Normal S2 Lungs: b/l wheeze Abdomen: Normal Bowel Sounds, Soft, No Tenderness Neurological: Normal Speech, Strength at 5/5 X4 Ext, Normal Tone Extremities: No Edema, Normal Pulses Vascular: Normal Pulses Current Medications: Current Medications Sig/Narcisa Start time Last Medication Dose Route Stop Time Status Admin Acetaminophen 650 MG Q6P PRN 09/03 0130 AC PO Albuterol Sulfate 3 ML Q6 PRN 09/03 0130 AC INH Albuterol Sulfate 3 ML ONCE ONE 09/02 1899 DC 09/02 INH 09/02 1900 194 Alprazolam 0.5 MG TID PRN 09/02 2300 AC PO 09/09 225 Azithromycin 500 MG DAILY 09/03 1000 AC Dextrose/Water 250 ML IV Azithromycin 500 MG ONCE ONE 09/02 2100 DC 09/02 Dextrose/Water 250 ML IV 09/02 Ceftriaxone Sodium 1,000 MG DAILY 09/03 1000 AC IV Ceftriaxone Sodium 0 .STK-MED ONE 09/02 2108 DC .ROUTE Ceftriaxone Sodium 1,000 MG ONCE ONE 09/02 2100 DC 09/02 IV 09/02 Duloxetine HCl 30 MG DAILY 09/03 1000 AC PO Guaifenesin 600 MG Q12 09/03 0125 AC PO Heparin Sodium 5,000 UNIT Q8 09/03 06 AC 09/03 (Porcine) SC 0621 Ipratropium [place] 2.5 ML ONCE ONE 09/02 2300 DC INH 09/02 230 Ipratropium [place] 2.5 ML ONCE ONE 09/02 1900 DC 09/02 INH 09/02 190 194 Ketorolac 15 MG Q6P PRN 09/03 0130 AC Tromethamine IV Lisinopril 40 MG DAILY 09/03 1000 AC PO Methylprednisolone 40 MG Q8 09/03 0600 AC 09/03 IV 0621 Methylprednisolone 0 .STK-MED ONE 09/02 193 DC .ROUTE Methylprednisolone 125 MG ONCE ONE 09/02 1900 DC 09/02 IV 09/02 190 193 Omeprazole 40 MG DAILY AC 09/03 0700 AC 09/03 PO 0621 Last 24 Hrs of Lab/Juan Results Last 24 Hrs of Labs/Mics: Laboratory Tests 09/02/16 1950: pH 7.45, pCO2 37, pO2 93, HCO3 25, ABG O2 Sat (Measured) 97.0, Carboxyhemoglobin 0.6 L, O2 Concentration % 6L, O2 Delivery Method NEBULIZER TREATMENT, Phlebotomy Draw Site LEFT BRACHIAL 09/02/161927: Anion Gap 9, Estimated GFR 47 L, BUN/Creatinine Ratio 19.1, Glucose 102 H, Calcium 9.2, Magnesium 1.9, Total Bilirubin 0.7, AST 21, ALT 39, Alkaline Phosphatase 120, Troponin I < 0.01, Pvm-E-Oyunsjtfpbx Pept 1020 H, Total Protein 7.2, Albumin 3.6, Globulin 3.6, Albumin/Globulin Ratio 1.0 L, CBC w Diff MAN DIFF ORDERED, RBC 4.60, MCV 83.4, MCH 27.2, RDW 15.2 H, MPV 8.1, Gran % 81.2 H, Lymphocytes % 10.5 L, Monocytes % 7.6, Eosinophils % 0.5, Basophils % 0.2, Absolute Granulocytes 15.2 H, Segmented Neutrophils 77 H, Absolute Lymphocytes 2.0, Lymphocytes 13 L, Monocytes 10 H, Absolute Monocytes 1.4 H, Absolute Eosinophils 0.1, Absolute Basophils 0, Platelet Estimate VERIFIED BY SMEAR, Normocytic RBCs VERIFIED, Normochromic RBCs VERIFIED, PUBS MCHC 32.6 L, Fld Total RBCs Counted 100 Microbiology 09/02 2329 BLOOD: Blood Culture - COLB 09/02 2299 LOWER RESP: Respiratory Culture - COLB 09/02 2299 LOWER RESP: Gram Stain - COLB 09/02 2299 BLOOD: Blood Culture - COLB Orders Radiology Findings: Left lower lobe airspace opacity may represent atelectasis or pneumonia. Follow-up to resolution Assessment/Plan Assessment: 86 YO F with pmh of asthma, copd, htn, gerd, presents with worsening sob and cough with expectoration for the past week. Found to have consolidation on imaging suspicious for pneumonia community aquired pneumonia continue to supplement oxygen keeping O2 >92% continue abx as prescribed. Follow sputum cultures, and blood cultures, TRC nebs as needed, continue IV steroids today switch in am if condition improves HTN continue home medication, monitor BP Anxiety/Depression continue home medicaions DVTppx Heparin Sq Problem List: 1. Pneumonia 2. Hypertension 3. Depression Pain Ratin Pain Location: n/a Pain Goal: Pain 4 or less Pain Plan: n/a Tomorrow's Labs & Rationales: cbc DVT/Prophylaxis: pharmacological PONCHO RAMIREZ,TAJ 09/03/16 1127: Attending MD Review Statement Attending Statement Attending MD Statement: examined this patient, discuss w/resident/PA/PASTRY SOUS CHEF, agreed w/resident/PA/PASTRY SOUS CHEF Attending Assessment/Plan: Patient seen and examined. Plan of care discussed with the medical team and the patient. Available lab work and radiology test reports were reviewed. Patient is currently sitting in chair and denies any difficulty breathing this morning. She continues to have coughing with greenish sputum but cough has decreased in intensity. She denies any chest pain fever chills this morning. Chest exam shows left-sided wheezing. Her MAXIMUM TEMPERATURE was 100.1. Admission labs were reviewed. Chest x-ray findings were noted for Left-sided pneumonia. Assessment and plan * Community-acquired pneumonia * COPD exacerbation * History of hypertension * History of GERD * History of psoriasis * History of depression and anxiety Plan is to continue current antibiotic and steroids and TRC/nebulizer treatment. Taper oxygen as tolerated. Follow blood cultures and sputum cultures.
[2016-09-03 14:17] VITALS: BP 150/80
[2016-09-03 22:47] VITALS: BP 148/70
[2016-09-04 07:02] VITALS: BP 160/84
[2016-09-04 08:48] LABS: ABSOLUTE BASOPHIL COUNT 0 /CUMM (0.0-0.2); ABSOLUTE EOSINOPHIL COUNT 0 /CUMM (0.0-0.7); ABSOLUTE GRANULOCYTE CT 15.1 /CUMM (1.4-6.5); ABSOLUTE LYMPH COUNT 1.1 /CUMM (1.2-3.4); ABSOLUTE MONOCYTE COUNT 0.4 /CUMM (0.10-0.60); BASOPHIL % 0.1 % (0.0-2.0); EOSINOPHIL % 0 % (0-5); GRANULOCYTE % 90.8 % (42.2-75.2); HEMATOCRIT 34.1 % (37-47); MEAN CORPUSCULAR HGB 27.2 PG (27.0-31.0); MEAN CORPUSCULAR HGB CONC 32.6 G/DL (33.0-37.0); MEAN CORPUSCULAR VOLUME 83.3 FL (81.0-99.0); MEAN PLATELET VOLUME 8.5 FL (7.4-10.4); PLATELET COUNT 253 /CUMM (130-400); RBC DISTRIBUTION WIDTH 14.8 % (11.5-14.5); RED BLOOD CELL CT 4.09 /CUMM (4.20-5.40)
--- NOTE | 2016-09-04 09:11 | PN- Housestaff ---
LETTY YU 09/04/16 0911: Subjective Follow-up For: COPD exacrbation Subjective: i Have seen and examined the patient. Patient is feeling better today. Patient on 1 L oxygen. She is still has wheezing. But the cough has decreased. Review of Systems Constitutional: Reports: see HPI. Objective Last 24 Hrs of Vital Signs/I&O Vital Signs Date Time Temp Pulse Resp B/P Pulse O2 O2 Flow FiO2 Ox Delivery Rate 09/04 1007 90 158/80 09/04 0924 93 Nasal 1.0L Cannula 09/04 0702 98.5 85 20 160/84 96 Nasal 2.0L Cannula 09/04 0000 Nasal 2.0L Cannula 09/03 2247 98.0 101 20 148/70 96 Nasal 2.0L Cannula 09/03 2110 96 Nasal 2.0L Cannula 09/03 1645 96 Nasal 2.0L Cannula 09/03 1600 Nasal 2.0L Cannula 09/03 1417 97.7 96 20 150/80 97 Intake & Output 09/04 1600 09/04 0800 09/04 0000 Intake Total 1000 Output Total Balance 1000 Intake, IV 300 Intake, Oral 700 Physical Exam General Appearance: Alert, Oriented X3, Cooperative Other Physical Findings: HEENT Atraumatic, PERRLA, EOMI Neck Supple, No JVD, No thryomegaly Lymphatic Cervical nl Cardiovascular Regular Rate, Normal S1, Normal S2 Lungs bilateral exp wheezes Abdomen Normal Bowel Sounds, Soft, No Tenderness, No Hepatospenomegaly, No Masses Current Medications: Current Medications Sig/Narcisa Start time Last Medication Dose Route Stop Time Status Admin Acetaminophen 650 MG Q6P PRN 09/03 0130 AC PO Al Hydroxide/Mg 30 ML ONCE ONE 09/03 1815 DC 09/03 Hydroxide PO 09/03 181 1808 Al Hydroxide/Mg 30 ML .STK-MED ONE 09/03 180 DC Hydroxide PO 09/03 180 Albuterol Sulfate 3 ML EVERY 4 HRS/AWAKE 09/03 1200 AC 09/04 INH 0921 Alprazolam 0.5 MG TID PRN 09/02 2300 AC 09/03 PO 09/09 2259 212 Azithromycin 500 MG DAILY@09/03 AC 09/03 Dextrose/Water 250 ML IV 2122 Ceftriaxone Sodium 1,000 MG DAILY@09/03 AC 09/03 IV 2123 Duloxetine HCl 30 MG DAILY 09/03 1000 AC 09/04 PO 1007 Guaifenesin 600 MG Q12 09/03 0125 AC 09/04 PO 1007 Heparin Sodium 5,000 UNIT Q8 09/03 0600 AC 09/04 (Porcine) SC 0638 Ipratropium [place] 2.5 ML EVERY 4 HRS/AWAKE 09/03 1200 AC 09/04 INH 0922 Ketorolac 15 MG Q6P PRN 09/03 0130 AC Tromethamine IV Lisinopril 40 MG DAILY 09/03 1000 AC 09/04 PO 1007 Methylprednisolone 40 MG Q8 09/03 0600 AC 09/04 IV 0638 Omeprazole 40 MG DAILY AC 09/03 0700 AC 09/04 PO 0638 Assessment/Plan Assessment: 86 YO F with pmh of asthma, copd, htn, gerd, presents with worsening sob and cough with expectoration for the past week. 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 COPD exacerbation Pain Ratin Pain Location: no pain Pain Goal: Pain 4 or less Pain Plan: same Tomorrow's Labs & Rationales: cbc leona ISAAC MD,TAJ 09/04/16 1306: Attending MD Review Statement Attending Statement Attending Assessment/Plan: Attending MD Statement: examined this patient, discuss w/resident/PA/[employer] [employer] ATTENDANT, agreed w/resident/PA/[place] [employer] ATTENDANT Attending Assessment/Plan: Patient seen and examined. Plan of care discussed with the medical team and the patient. Available lab work and radiology test reports were reviewed. Patient denies any difficulty breathing this morning. She continues to have coughing with greenish sputum but cough has decreased in intensity. She was able to ambulate in the hallway today. She denies any chest pain fever chills this morning. Chest exam shows left-sided wheezing. Her MAXIMUM TEMPERATURE was 98.5. labs were reviewed. WBC count has decreased and creatinine is stable Assessment and plan * Community-acquired pneumonia- continue antibiotic and switch to oral tomorrow * COPD exacerbation- given the patient has significantly improved we can change Solu-Medrol to prednisone this evening * History of hypertension * History of GERD * History of psoriasis * History of depression and anxiety Patient would like to go home tomorrow.
[2016-09-04 09:15] LABS: WHITE BLOOD CELL COUNT 16.7 /CUMM (4.8-10.8)
[2016-09-04 14:25] VITALS: BP 140/80
[2016-09-04 22:20] VITALS: BP 122/74
--- NOTE | 2016-09-05 06:48 | PN- Housestaff ---
See Addendum Subjective Follow-up For: COPD exacerbation Subjective: Patient seen and examined at bedside this AM. She is tearful that she is in the hospital and is dissatisfied that she is ill. However, due to current respiratory status and persistent wheeze, patient is amenable to staying in the hospital another day. Review of Systems Constitutional: Denies: chills, fever. EENTM: Denies: visual changes, throat pain. Cardiovascular: Denies: chest pain, palpitations. Respiratory: Reports: cough, short of breath, sputum production, wheezing. Gastrointestinal: Denies: abdominal pain, bloating. Genitourinary: Denies: dysuria. Musculoskeletal: Denies: back pain. Skin: Denies: change in skin color, change in hair/nails. Neurological/Psychological: Denies: ataxia. Hematologic/Endocrine: Denies: polyuria, polydipsia. Objective Last 24 Hrs of Vital Signs/I&O Vital Signs Date Time Temp Pulse Resp B/P Pulse O2 O2 Flow FiO2 Ox Delivery Rate 09/05 1408 98.4 105 20 125/80 93 09/05 0921 120/68 09/05 0837 94 Nasal 1.0L Cannula 09/05 0706 98.5 84 20 120/68 96 Nasal 1.0L Cannula 09/05 0006 96 Nasal 1.0L Cannula 09/05 0000 Nasal 1.0L Cannula 09/04 2220 98.7 102 20 122/74 94 Nasal 1.0L Cannula 09/04 2130 93 Nasal 1.0L Cannula 09/04 1700 93 Nasal 1.0L Cannula Intake & Output 09/05 1600 09/05 0800 09/05 0000 Intake Total 240 Output Total Balance 240 Intake, Oral 240 Physical Exam General Appearance: Alert, Oriented X3, Cooperative, No Acute Distress Skin: No Significant Lesion HEENT: Atraumatic, Mucous Membr. moist/pink Neck: Supple, No JVD, No thryomegaly Lymphatic: Axillary nl Cardiovascular: Regular Rate, Normal S1, Normal S2 Lungs: Bilateral expiratory wheezes, reduced air entry bilaterally. Abdomen: Normal Bowel Sounds, Soft, No Tenderness Neurological: Normal Speech, Normal Tone Extremities: No Clubbing, No Cyanosis Vascular: Pulses Symmetrical Current Medications: Current Medications Sig/Narcisa Start time Last Medication Dose Route Stop Time Status Admin Acetaminophen 650 MG Q6P PRN 09/03 0130 AC PO Albuterol Sulfate 3 ML EVERY 4 HRS/AWAKE 09/03 1200 AC 09/05 INH 1310 Alprazolam 0.5 MG TID PRN 09/02 2300 AC 09/05 PO 09/09 2259 0925 Amoxicillin/ 875 MG Q12 09/05 1000 AC 09/05 Clavulanate Potassium PO 0922 Azithromycin 500 MG DAILY@09/03 2100 DC 09/04 Dextrose/Water 250 ML IV 09/04 2300 2110 Ceftriaxone Sodium 1,000 MG DAILY@09/03 2100 DC 09/04 IV 09/04 2300 2109 Duloxetine HCl 30 MG DAILY 09/03 1000 AC 09/05 PO 0922 Guaifenesin 600 MG Q12 09/03 0125 AC 09/05 PO 0922 Heparin Sodium 5,000 UNIT Q8 09/03 0600 AC 09/05 (Porcine) SC 0620 Ipratropium [place] 2.5 ML EVERY 4 HRS/AWAKE 09/03 1200 AC 09/05 INH 1310 Lisinopril 40 MG DAILY 09/03 1000 AC 09/05 PO 0921 Omeprazole 40 MG DAILY AC 09/03 0700 AC 09/05 PO 0620 Patient Medication 1 ED .STK-MED ONE 09/05 1409 [facility] Teaching [facility] 09/05 1410 Prednisone 60 MG DAILY 09/05 1000 AC 09/05 PO 0922 Last 24 Hrs of Lab/Juan Results Last 24 Hrs of Labs/Mics: Laboratory Tests 09/05/16 0810: Anion Gap 6, Estimated GFR 47 L, BUN/Creatinine Ratio 27.3 H, CBC w Diff NO MAN DIFF REQ, RBC 4.03 L, MCV 83.0, MCH 27.7, RDW 15.0 H, MPV 8.1, Gran % 70.7 , Lymphocytes % 19.6 L, Monocytes % 9.3, Eosinophils % 0.3, Basophils % 0.1, Absolute Granulocytes 9.5 H, Absolute Lymphocytes 2.6, Absolute Monocytes 1.3 H, Absolute Eosinophils 0, Absolute Basophils 0, PUBS MCHC 33.3 Orders Radiology Findings: EXAMINATION: XR CHEST CLINICAL INFORMATION: Shortness of breath. COMPARISON: 08/27/2016 TECHNIQUE: 2 views of the chest were obtained. FINDINGS: The lungs are well expanded. Left basilar airspace opacity noted in the retrocardiac region. No edema or effusion. No pneumothorax. The cardiomediastinal silhouette is unchanged, with a calcified aorta. Degenerative changes of the spine. IMPRESSION: Left lower lobe airspace opacity may represent atelectasis or pneumonia. Follow-up to resolution. Assessment/Plan Assessment: 86 YO F with pmh of asthma, copd, htn, gerd, presents with worsening sob and cough with expectoration for the past week. Found to have consolidation on imaging suspicious for pneumonia #Community aquired pneumonia/COPD exacerbation -CXR suggestive of KATHY PNA -Continue TRC nebs -Continue mucinex -Sputum culture, blood cultures not received -Ceftriaxone adn azithromycin discontinued, continue oral empiric abx for now ( PO augmentin 875 Q12h) -Patient switched to PO prednisone 60 mg daily, will continue taper -Patient on 1 L NC currently, will titrate down to RA prior to discharge (if unable, will send patient home with home O2) -Will have patient follow-up with a railroad track inspector upon discharge (requesting Dr. Chao) #HTN -Continue lisinopril 40 mg PO daily -monitor BP #Anxiety/Depression -Continue cymbalta 30 gm PO daily Full code, DVT prophylaxis heparin subcutaneous, heart healthy diet Problem List: 1. Hypertension 2. Depression 3. Hypoxia 4. COPD exacerbation Pain Ratin Pain Location: n/a Pain Goal: Remain pain free Pain Plan: Mild pain pathway. Tomorrow's Labs & Rationales: CBC (monitor leukocytosis), BEP (monitor renal function)
[2016-09-05 07:06] VITALS: BP 120/68
[2016-09-05] MEDS ORDERED: AUGMENTIN 875-1 EACH PO ×2 (09:16→19:20)
[2016-09-05] MEDS ORDERED: PREDNISONE10 M2 PO ×2 (09:26→19:20)
--- NOTE | 2016-09-05 09:28 | Patient Discharge Instructions ---
Discharge Instructions General Discharge Information You were seen/treated for: Community acquired pneumonia COPD exacerbation Special Instructions: Please follow up with your PCP within 1 week of discharge. Please follow up with your dressage instructor within 2 weeks of discharge.(We have provided you with a referral to Dr. Chao). PLease take all medications as directed. Please use 1 L home O2 at rest and 2 L while ambulating. Diet Recommended Diet: Heart Healthy Activity Activity Self Limited: Yes Acute Coronary Syndrome Inclusion Criteria At DC or during hospital stay patient has or had the following: ACS DIAGNOSIS No Discharge Core Measures Meds if any: Prescribed or Continued at Discharge Meds if any: NOT Prescribed or Continued at Discharge Congestive Heart Failure Inclusion Criteria At DC or during hospital stay patient has or had the following: CHF DIAGNOSIS No Discharge Core Measures Meds if any: Prescribed or Continued at Discharge Meds if any: NOT Prescribed or Continued at Discharge Cerebrovascular accident Inclusion Criteria At DC or during hospital stay patient has or had the following: CVA/TIA Diagnosis No Discharge Core Measures Meds if any: Prescribed or Continued at Discharge Meds if any: NOT Prescribed or Continued at Discharge Venous thromboembolism Inclusion Criteria VTE Diagnosis No VTE Type NONE VTE Confirmed by (Test) NONE Discharge Core Measures - Per Current guidelines, there needs to be overlap - treatment for the first 5 days of Warfarin therapy. - If discharged on Warfarin prior to 5 days of - overlap therapy, the patient will need to be - assessed for post discharge needs including - *Post discharge parental anticoagulation - *Warfarin and/or parental anticoagulation education - *Follow up date to check INR post discharge At least 5 days overlap therapy as Inpatient No Meds if any: Prescribed or Continued at Discharge Note: Overlap Therapy is Warfarin and Anticoagulant Meds if any: NOT Prescribed or Continued at Discharge
[2016-09-05 09:31] LABS: ABSOLUTE BASOPHIL COUNT 0 /CUMM (0.0-0.2); ABSOLUTE EOSINOPHIL COUNT 0 /CUMM (0.0-0.7); ABSOLUTE GRANULOCYTE CT 9.5 /CUMM (1.4-6.5); ABSOLUTE LYMPH COUNT 2.6 /CUMM (1.2-3.4); ABSOLUTE MONOCYTE COUNT 1.3 /CUMM (0.10-0.60); BASOPHIL % 0.1 % (0.0-2.0); EOSINOPHIL % 0.3 % (0-5); GRANULOCYTE % 70.7 % (42.2-75.2); HEMATOCRIT 33.5 % (37-47); MEAN CORPUSCULAR HGB 27.7 PG (27.0-31.0); MEAN CORPUSCULAR HGB CONC 33.3 G/DL (33.0-37.0); MEAN PLATELET VOLUME 8.1 FL (7.4-10.4); PLATELET COUNT 255 /CUMM (130-400); RED BLOOD CELL CT 4.03 /CUMM (4.20-5.40); WHITE BLOOD CELL COUNT 13.5 /CUMM (4.8-10.8)
[2016-09-05 14:08] VITALS: BP 125/80
[2016-09-05 23:18] VITALS: BP 158/88
[2016-09-06 06:25] VITALS: BP 136/80
--- NOTE | 2016-09-06 06:53 | NUR ---
PT RESTED COMFORTABLY OVERNIGHT. TOOK AM MEDICATIONS AND WENT BACK TO SLEEP.
--- NOTE | 2016-09-06 07:00 | PN- Housestaff ---
Subjective Follow-up For: COPD exacerbation CAP Subjective: Patient seen and examined at bedside this AM. She is requesting discharge today, though she remains on 1 L NC and with ambulation she requires a higher liter flow. Patient is amenable to oxygen at home. Review of Systems Constitutional: Denies: chills, fever, malaise. EENTM: Denies: blurred vision, nasal congestion, throat pain. Cardiovascular: Denies: chest pain, palpitations. Respiratory: Reports: cough, short of breath, sputum production, wheezing. Gastrointestinal: Denies: abdominal pain. Genitourinary: Denies: dysuria. Musculoskeletal: Denies: back pain. Skin: Denies: lesions. Neurological/Psychological: Denies: confusion, headache. Hematologic/Endocrine: Denies: bruising, bleeding. Objective Last 24 Hrs of Vital Signs/I&O Vital Signs Date Time Temp Pulse Resp B/P Pulse O2 O2 Flow FiO2 Ox Delivery Rate 09/06 0927 95 130/80 09/06 0809 99 Nasal 1.0L Cannula 09/06 0800 92 Nasal 1.0L Cannula 09/06 0625 98.2 92 20 136/80 95 Nasal 1.0L Cannula 09/06 0000 93 Nasal 1.0L Cannula 09/05 2318 98.6 101 20 158/88 93 Nasal 1.0L Cannula 09/05 1634 93 Nasal 1.0L Cannula 09/05 1408 98.4 105 20 125/80 93 Intake & Output 09/06 1600 09/06 0800 09/06 0000 Intake Total 130 250 Output Total Balance 130 250 Intake, IV 10 10 Intake, Oral 120 240 Physical Exam General Appearance: Alert, Oriented X3, Cooperative, Mild Distress Skin: No Significant Lesion HEENT: Atraumatic, Mucous Membr. moist/pink Neck: Supple Cardiovascular: Regular Rate, Normal S1, Normal S2 Lungs: Expiratory wheezing bilaterally with dyspnea on mild/moderate activity Abdomen: Normal Bowel Sounds, Soft, No Tenderness Neurological: Normal Gait (With walker), Normal Speech, Normal Tone Extremities: No Clubbing, No Cyanosis Vascular: Pulses Symmetrical Current Medications: Current Medications Sig/Narcisa Start time Last Medication Dose Route Stop Time Status Admin Acetaminophen 650 MG Q6P PRN 09/03 0130 AC PO Al Hydroxide/Mg 30 ML .STK-MED ONE 09/05 1949 DC Hydroxide PO 09/05 1950 Al Hydroxide/Mg 30 ML ONCE ONE 09/05 1715 DC 09/05 Hydroxide PO 09/05 1716 1711 Al Hydroxide/Mg 30 ML .STK-MED ONE 09/05 1707 DC Hydroxide PO 09/05 1708 Albuterol Sulfate 3 ML EVERY 4 HRS/AWAKE / 1200 AC / INH 0806 Alprazolam 0.5 MG TID PRN 09/02 2300 AC 09/05 PO 09/09 2259 2043 Amoxicillin/ 875 MG Q12 09/05 1000 AC 09/06 Clavulanate Potassium PO 0926 Duloxetine HCl 30 MG DAILY / 1000 AC / PO 0926 Guaifenesin 600 MG Q12 09/03 0125 AC 09/06 PO 0926 Heparin Sodium 5,000 UNIT Q8 09/03 0600 AC 09/06 (Porcine) SC 0540 Ipratropium [place] 2.5 ML EVERY 4 HRS/AWAKE / 1200 AC 09/06 INH 0806 Lisinopril 40 MG DAILY 09/03 1000 AC 09/06 PO 0927 Omeprazole 40 MG DAILY AC 09/03 0700 AC 09/06 PO 0540 Patient Medication 1 ED .STK-MED ONE 09/05 1409 [facility] Teaching ED 09/05 1410 Prednisone 60 MG DAILY 09/05 1000 AC 09/06 PO 0926 Last 24 Hrs of Lab/Juan Results Last 24 Hrs of Labs/Mics: Laboratory Tests 09/06/16 0700: Anion Gap 3 L, Estimated GFR 47 L, BUN/Creatinine Ratio 28.2 H Orders Radiology Findings: CXR: IMPRESSION: Left lower lobe airspace opacity may represent atelectasis or pneumonia. Follow-up to resolution. Assessment/Plan Assessment: 86 YO F with pmh of asthma, copd, htn, gerd, presents with worsening sob and cough with expectoration for the past week. Found to have consolidation on imaging suspicious for pneumonia #Community aquired pneumonia/COPD exacerbation -CXR suggestive of KATHY PNA -Continue TRC nebs -Continue mucinex -Sputum culture, blood cultures not received -Ceftriaxone adn azithromycin discontinued, continue oral empiric abx for now ( PO augmentin 875 Q12h) -Patient switched to PO prednisone 60 mg daily, will continue taper -Patient on 1 L NC currently, on ambulatory pulse oximetry on room air, patient dropped her O2 saturations to 82%. She will require home O2. -She will likely need 1 L at rest and 2 L while ambulating. -Will have patient follow-up with a pile driving superintendent upon discharge (requesting Dr. Chao) #HTN -Continue lisinopril 40 mg PO daily -monitor BP #Anxiety/Depression -Continue cymbalta 30 gm PO daily Full code, DVT prophylaxis heparin subcutaneous, heart healthy diet Problem List: 1. Hypertension 2. Hypoxia 3. Pneumonia 4. COPD exacerbation Pain Ratin Pain Location: n/a Pain Goal: Remain pain free Pain Plan: Mild pain pathway Tomorrow's Labs & Rationales: Discharge today.
--- NOTE | 2016-09-06 12:11 | PN- Att Addend ---
Attending MD Review Statement Attending Statement Attending MD Statement: examined this patient, discuss w/resident/PA/OPERATIONS AGENT, agreed w/resident/PA/OPERATIONS AGENT, discussed with family, reviewed EMR data (avail) Attending Assessment/Plan: Pt with copd exacerbation. plan is to dc pt after oxygen evaluation is done and if needed arrange home oxygen. Pt will be discharged once the above is done, on slow steroid taper and po augmentin. D/w pt and his daughter at bedside the care plan.
[2016-09-06] MEDS ORDERED: PREDNISONE10 M2 PO (13:13)
--- NOTE | 2016-09-06 13:17 | Discharge Summary ---
Visit Information Visit Dates Admission Date: 09/02/16 Discharge Date: 09/06/16 Hospital Course Course Attending Physician: GERMAINE RAMIREZ,MINDI Uribe Primary Care Physician: CRYS RAMRIEZ,[facility] Course: Ms. Azul is a pleasant 86 year old female with PMH asthma, COPD not on home O2, hypertension, GERD and anxiety who presented to [facility] on with chief complaint of worsening productive cough and shortness of breath. Of note, patient had this dyspnea and cough with productive sputum starting the end of July for which she presented to the ED, however she refused admission at that time. She returned on September 02 with increased shortness of breath and cough productive of greenish sputum that was associated with wheezing. She denied any fever, chest pain, palpitation, nausea, vomiting, dizziness, swelling of legs, changes in bowel or bladder habits at that time. In the ED: Vital signs showed T 99.3, HR 106, RR 18, BP 160/87 and O2 saturation of 89% on RA. Labs showed WBC 18.7 increased from 8, neutrophils 81%, proBNP 1020, otherwise CBC, BMP, LFTs unremarkable. ABG showed 7.45/37/93/25 on 6 L. EKG was done and showed no significant changes. CXR showed left lower lobe airspace opacity that represented atelectasis vs. pneumonia. Physical exam showed: General: Obese patient not in distress Head: Normocephalic, atraumatic Eyes: Pupils normal in size, regular, reacting to light and accommodation, EOM normal Ears: B/L normal on inspection Nose: Normal on inspection Throat/mouth: Moist mucosa Neck: Supple, full range of motion, no thyromegaly Heart: Regular rate, regular rhythm Lung: Wheezes heard b/l Abd: Soft, non-tender, no distention appreciated Back: Normal range of motion Extremities: Normal knee exam bilaterally, no pedal edema, distal neurovascular intact Neurologic: Alert, oriented x3, Cranial exam grossly intact, Speech is clear and coherent Skin: Warm and dry Psychiatric: Calm, cooperative, coherant Patient was admitted to the general medicine floor and the following was the management: 1. Acute hypoxic respiratory failure: Likely secondary to COPD exacerbation as well as pneumonia. Management as below for both COPD exacerbation and community acquired pneumonia. 2. COPD exacerbation: This exacerbation was likely secondary to underlying infection, noted bilateral wheezing appreciated on examination with increased oxygen demand (patient required oxygen via nasal cannula when at home she is on room air). Patient was started on IV solumedrol 40 mg Q8H, supplemental oxygen, albuterol and atrovent nebulizers as needed, incentive spirometry, mucinex and antibiotics for her underlying pneumonia. IV solumedrol was slowly tapered and she was transitioned to oral prednisone daily. Patient was given a slow taper to continue on discharge due to the severity of her symptoms and persistent wheeze. Patient continued to require oxygen via nasal cannula and was unable to be weaned off prior to discharge. On ambulatory pulse oximetry on room air, patient was noted to desaturate to 82%. She improved to 90% after 5 minutes on 2L nasal cannula. Of note, patient does not follow with a race starter was given a referral to Dr. Chao at her request. 3. Left lower lobe pneumonia: Initial CXR suggestive of left lower lobe pneumonia along with persistent cough productive of green sputum. Patient was also noted to have a low grade fever and slightly elevated white count. Patient was started on IV azithromycin and ceftriaxone and further pulmonary management as above. Patient was continued on antibiotics during her stay and discharged with a prescription for oral augmentin for a total course of 7 days. She should follow up with her PCP closely after discharge for continued care. 4. HTN: Patient had her vital signs monitored every shift and she was continued on her home dose of lisinopril. She should continue this on discharge. 5. History of anxiety and depression: Patient was continued on her home alpazolam and cymbalta. Continue care with her PCP after discharge. 6. DVT Prophylaxis: Lovenox Complications: None. Allergies: Coded Allergies: Penicillins (VAGINAL ITCH 06/11/16) Significant Procedures: EXAMINATION: XR CHEST CLINICAL INFORMATION: Shortness of breath. COMPARISON: 08/27/2016 TECHNIQUE: 2 views of the chest were obtained. FINDINGS: The lungs are well expanded. Left basilar airspace opacity noted in the retrocardiac region. No edema or effusion. No pneumothorax. The cardiomediastinal silhouette is unchanged, with a calcified aorta. Degenerative changes of the spine. IMPRESSION: Left lower lobe airspace opacity may represent atelectasis or pneumonia. Follow-up to resolution. Disposition Summary Disposition Principal Diagnosis: Community acquired pneumonia Acute on chronic respiratory failure secondary to COPD exacerbation Additional Diagnosis: HTN GERD Asthma Anxiety/depression Discharge Disposition: home or self care Discharge Instructions General Discharge Information Code Status: Full Code Patient's Diet: Heart healthy diet. Patient's Activity: Self-limited, as tolerated, on home O2. Follow-Up Instructions/Appts: Please follow up with your PCP within 1 week of discharge. Please follow up with your race starter within 2 weeks of discharge.(We have provided you with a referral to Dr. Chao). PLease take all medications as directed. Please use 1 L home O2 at rest and 2 L while ambulating. Medications at Discharge Discharge Medications: Stop taking the following medications: Prednisone (Prednisone) 20 MG TABLET ORAL TWICE DAILY Qty = 10 Continue taking these medications: Omeprazole (Prilosec) 40 MG ECC 1 Tablet ORAL DAILY Qty = 30 Lisinopril (Lisinopril) 40 MG TABLET 40 Milligram ORAL DAILY BEFORE BREAKFAST Qty = 90 Comments: Last Taken:09/06/16 Time: 0927 AM Alprazolam (Alprazolam) 0.5 MG TABLET 0.5 Milligram ORAL THREE TIMES DAILY as needed for ANXIETY Qty = 90 Comments: Last Taken: 09/05/16 Time: 8:43PM Duloxetine Hydrochloride (Cymbalta) 30 MG CAPSULE. 1 Capsule ORAL DAILY Comments: Last Taken:09/06/16 Time:0926 AM Fluticasone/Vilanterol (Breo Ellipta 100-25 Mcg INH) 100 MCG-25 MCG/DOSE BLST.W.DEV 1 PUFF Inhale through mouth DAILY Qty = 60 Comments: Last Taken: NOT GIVEN Time: Ipratropium/Albuterol Sulfate (Iprat-Albut 0.5-3(2.5) MG/3 Ml) 0.5 MG-3 MG (2.5 MG BASE)/3 ML AMPUL.NEB 1 VIAL Inhale through mouth 4 TIMES A DAY Qty = 180 Comments: Last Taken:09/06/16 Time: 1158 AM Guaifenesin/Dextromethorphan (Guaifenesin Dm Syrup) (Unknown Strength) SYRUP Unknown Dose ORAL GIVE ONCE Comments: Last Taken: NOT GIVEN Time: Start taking the following new medications: Amoxicillin/Potassium Clav (Augmentin 875-125 Tablet) 875 MG-125 MG TABLET 1 Tablet ORAL TWICE DAILY Qty = 14 No Refills Comments: Last Taken:09/06/16 Time:0926 AM Prednisone (Prednisone) 10 MG TABLET 0 ORAL See Instructions Qty = 45 No Refills Instructions: 09/07/16-09/09/16 take 5 tabs daily 09/10/16-09/12/16 take 4 tabs daily 09/13/16-09/15/16 take 3 tabs daily 09/16/16-09/18/16 take 2 tabs daily 09/19/16-09/21/16 take 1 tab daily then stop Comments: Last Taken:09/06/16 Time:0926 AM Copies To: CRYS RAMIREZ,KESHAV Attending MD Review Statement Documenting Attending: GERMAINE RAMIREZ,MINDI Uribe Other Findings: Pt with copd exacerbation. plan is to dc pt after oxygen evaluation is done and if needed arrange home oxygen. Pt will be discharged once the above is done, on slow steroid taper and po augmentin. D/w pt and his daughter at bedside the care plan. Agree with the above discharge plan.
--- NOTE | 2016-09-06 13:28 | NUR ---
O2 SAT 83 ON ROOM AIR WITH AMBULATION, 88 ON RA AT REST, O2 SAT 85 ON 1 LITER VIA N/C WITH AMBULATION, O2 PLACED BACK AT 2 LITERS, O2 SAT 93 ON 2 LITERS VIA N/C AT REST, O2 SAT 94 ON 2 LITERS WITH AMBULATION, AWARE
[2016-09-06 14:41] VITALS: BP 122/68
== END 2016-09-06 17:05 | DRG 189 ==
LOC: ENRESERVTM → ENRESERVDT → ERH 18:27 → ERHI 21:16 → 2NA 21:16
PROVIDERS: Internal Medicine; Physician Assistant; Student in an Organized Health Care Education/Training Program; ADMIT Internal Medicine
DX: J96.01 Acute respiratory failure with hypoxia (principal); J18.9 Pneumonia, unspecified organism; J44.0 Chronic obstructive pulmonary disease with (acute) lower respiratory infection; J44.1 Chronic obstructive pulmonary disease with (acute) exacerbation; J45.909 Unspecified asthma, uncomplicated; I10 Essential (primary) hypertension; K21.9 Gastro-esophageal reflux disease without esophagitis; E66.9 Obesity, unspecified; Z68.33 Body mass index [BMI] 33.0-33.9, adult; F32.9 Major depressive disorder, single episode, unspecified; L40.9 Psoriasis, unspecified; F41.9 Anxiety disorder, unspecified
CPT/HCPCS: 2NAP; ERO; 82436; 87040; 87070; 93005; 93010; 96374; J0456; J0696; J1644; J2920; J2930; J7060

== ENCOUNTER 2017-11-26 22:52 | Inpatient (IN) | payer OTHER, MEDICARE ==
[~2017-11-26] VITALS: Ht 161.3 cm; Wt 90.8 kg
[~2017-11-26 22:52] MED LIST changes: +ACETAMINOPHEN500 M4 PO; +AUGMENTIN 875-1 EACH PO; +BREO ELLIPTA 11 EACH INH; +CYMBALTA60 M1 PO; +GABAPENTIN100 M2; +GUAIFENESIN DM S5 ML PO; +IPRAT-ALBUT 0.5-3 ML INH; +IRON325 M3 PO; +MACROBID 100 M100 MG PO; +METHYLPREDNISOLO4 M2 PO; +NEURONTIN100 M1 PO; +NYSTATIN100000 UNI PO; +OMEPRAZOLE20 M2 PO; +PRINIVIL20 M1 PO; +TRAMADOL HCL50 M1 PO
--- NOTE | 2017-11-26 22:55 | ED GI/GU/ABDOMINAL COMPLAINT ---
History of Present Illness General Chief Complaint: General Adult Stated Complaint: BIBA FOR VOMITING BLOOD Source: patient, family, old records, EMS Exam Limitations: no limitations Vital Signs & Intake/Output Vital Signs & Intake/Output Vital Signs Date Time Temp Pulse Resp B/P B/P Pulse O2 O2 Flow FiO2 Mean Ox Delivery Rate 11/27 0027 97.8 105 20 130/60 99 Nasal 10L Cannula 11/26 2341 95 Nasal 10L Cannula 11/269 102 20 153/73 98 Nasal 10L Cannula 11/26 2323 107 20 118/56 91 Nasal 10L Cannula 11/26 2310 114 44 149/67 92 Nasal 6.0L Cannula 11/26 2305 116 149/72 11/26 2300 117 147/72 91 Nasal 6.0L Cannula 11/268 96.8 128 48 158/76 95 Nasal 6.0L Cannula ED Intake and Output 11/27 0000 11/26 1200 Intake Total Output Total 200 Balance -200 Output, 200 Emesis Patient 174 lb Weight Weight Reported by Patient Measurement Method Allergies Coded Allergies: Penicillins (VAGINAL ITCH 06/11/16) Reconcile Medications Duloxetine HCl (Cymbalta) 60 MG CAPSULE.DR 1 CAP PO QPM DEPRESSION (Reported) Duloxetine Hydrochloride (Cymbalta) 30 MG CAPSULE.DR 1 CAP PO QAM DEPRESSION (Reported) Ferrous Sulfate (IRON) 325 MG (65 MG IRON) TABLET 1 TAB PO DAILY SUPPLEMENT ( Reported) Fluticasone/Vilanterol (Breo Ellipta 100-25 Mcg INH) 100 MCG-25 MCG/DOSE BLST.W.DEV 1 PUFF INH QPM RESP. (Reported) Gabapentin (Neurontin) 100 MG CAPSULE 1 CAP PO TID ANXIETY (Reported) Ipratropium/Albuterol Sulfate (Iprat-Albut 0.5-3(2.5) MG/3 Ml) 0.5 MG-3 MG (2.5 MG BASE)/3 ML AMPUL.NEB 1 VIAL INH TID RESP (Reported) Lisinopril (Prinivil) 20 MG TABLET 1 TAB PO DAILY Hypertension Omeprazole 20 MG CAPSULE.DR 1 CAP PO BID peptic ulcer .. Triage Nurses Notes Reviewed? yes ? n Is pt currently ? No Onset: Abrupt Duration: minute(s):, continues in ED Timing: single episode today Quality/Severity: burning Location: epigastric Radiation: no radiation Activities at Onset: none Modifying Factors: Worsens With: vomiting. Associated Symptoms: hemetemesis HPI: 87 yo woman h/o liver mass, 02 dependent copd, presents with hemetemesis. She reports, "Just before I went to bed, I vomited up a lot of blood." 911 called immediately. En route, she vomited approximately 200cc of bright red blood. She notes that she has had darker stools than usual over the past few weeks. She notes mild mid epigastric discomfort today. She has no chest pain, dizziness, headache, syncopal type symptoms. Past History Travel History Traveled to [place] past 21 day No Medical History Any Pertinent Medical History? see below for history Neurological: NONE EENT: NONE Cardiovascular: hypertension Respiratory: COPD, ASTHMA Gastrointestinal: GERD, HIATAL HERNIA Hepatic: NONE Renal: NONE Musculoskeletal: NONE Psychiatric: anxiety Endocrine: NONE Blood Disorders: NONE Cancer(s): NONE History of MRSA: No History of VRE: No History of CDIFF: No Surgical History Surgical History: non-contributory Psychosocial History Who do you live with Family What is your primary language Latvian Family History Family History, If Any: MOTHER (uterine cancer). FATHER (Heart disease). Hx Contributory? No Review of Systems Review of Systems Constitutional: Reports: no symptoms. EENTM: Reports: no symptoms. Respiratory: Reports: no symptoms. Cardiovascular: Reports: no symptoms. GI: Reports: no symptoms. Genitourinary: Reports: no symptoms. Musculoskeletal: Reports: no symptoms. Skin: Reports: no symptoms. Neurological/Psychological: Reports: no symptoms. Hematologic/Endocrine: Reports: no symptoms. Immunologic/Allergic: Reports: no symptoms. All Other Systems: Reviewed and Negative Physical Exam Physical Exam General Appearance: well developed/nourished, moderate distress, severe distress Head: atraumatic, normal appearance Eyes: Bilateral: normal appearance. Ears, Nose, Throat, Mouth: hearing grossly normal, moist mucous membrane Neck: normal inspection, supple, full range of motion, normal alignment Respiratory: upper airway transmitted sounds, equal bilaterally Cardiovascular: regular rate/rhythm Gastrointestinal: normal bowel sounds, soft, non-tender Rectal: deferred due to clinical status Back: normal inspection Extremities: normal range of motion Neurologic/Psych: no motor/sensory deficits, awake, alert, oriented x 3 Skin: intact, normal color, warm/dry Core Measures ACS in differential dx? No Sepsis Present: No Sepsis Focused Exam Completed? No Progress Differential Diagnosis: varices vs ulcer vs other. Plan of Care: Orders Procedure Date/time Status Nothing by Mouth 11/27 B Active ICU LAB BUNDLE 11/27 0500 Active CBC WITHOUT DIFFERENTIAL 11/27 0500 Active LACTIC ACID 11/27 0201 Active CULTURE,URINE 11/27 0036 Active BLOOD CULTURE 11/27 0036 Active URINALYSIS 11/27 0036 Active VRE ACTIVE SURVIELLANCE 11/27 0030 Active ACTIVE SURVEILLANCE NARES 11/27 0030 Active LEUKOCYTE POOR (PACKED CELLS) 11/27 0017 Active TRC EVALUATION (GEN) 11/27 0011 Active OXYGEN SETUP (GEN) 11/27 0011 Active PT Evaluate & Treat 11/27 0011 Active Saline Lock 11/27 0011 Active Pathway - chart 11/27 0011 Active House Staff 11/27 0011 Active Code Status 11/27 0011 Active Lab Add-on Test 11/27 UNK Active VTE Mechanical Prophylaxis 11/27 UNK Active Vital Signs 11/27 UNK Active Intake & Output 11/27 UNK Active Hemoccult 11/27 UNK Active Dennis, Insertion/Removal/Asses 11/27 UNK Active EKG 11/27 UNK Active Patient Data 11/26 2346 Active Admit to inpatient 11/26 2345 Active Intake & Output 11/26 2340 Active THYROID STIMULATING HORMONE 11/26 2303 Active PHOSPHORUS 11/26 2303 Active MAGNESIUM 11/26 2303 Active FREE T4 11/26 2303 Active LACTIC ACID 11/26 2301 Complete TROPONIN LEVEL 11/265 Active PARTIAL THROMBOPLASTIN TIME 11/26 2255 Complete PROTHROMBIN TIME 11/26 2255 Complete LIPASE 11/26 2255 Active HEPATIC FUNCTION PANEL 11/26 2255 Active CBC WITHOUT DIFFERENTIAL 11/26 225 Complete BASIC METABOLIC PANEL 11/26 2255 Active AMYLASE 11/26 2255 Active EKG 11/26 2255 Active TYPE & SCREEN (NOT X-MATCH) 11/26 225 Active Current Medications Sig/Narcisa Start time Last Medication Dose Stop Time Status Admin Budesonide/ 2 PUF BID 11/27 0900 AC Formoterol Fumarate (SYMBICORT) Tiotropium [place] 1 PUF DAILY 11/27 0900 AC (Spiriva) Ampicillin Sodium/ 3,000 MG Q6H 11/27 0100 AC Sulbactam Sodium (Unasyn) Sodium Chloride 100 ML (Normal Saline 0.9%) Acetaminophen 1,000 MG Q8P PRN 11/27 0045 AC (Ofirmev) N/A 1 UNIT (No Carrier) Dextrose/Sodium 1,000 ML .Q8H 11/27 001 AC Chloride (D5-Normal Saline) Ondansetron HCl 4 MG Q6P PRN 11/27 001 AC (Zofran) Pantoprazole Sodium 40 MG Q5H 11/26 2315 AC 11/26 (Protonix) 2341 Sodium Chloride 100 ML (Normal Saline 0.9%) Laboratory Tests 11/26/172302: Lactic Acid 4.4 H 11/26/172302: Anion Gap 13, Estimated GFR 43 L, BUN/Creatinine Ratio 17.5, Glucose 164 H, Calcium 9.1, Phosphorus 5.3 H, Magnesium 2.2, Total Bilirubin 0.9, Direct Bilirubin 0.7 H, AST 196 H, ALT 51, Alkaline Phosphatase 290 H, Troponin I < 0.01, Total Protein 6.4, Albumin 3.3 L, Amylase 47, Lipase 131, TSH Pending, Free T4 Pending, PT 11.8, INR 1.08, APTT 23 L, CBC w Diff MAN DIFF ORDERED, RBC 3.63 L, MCV 86.7, MCH 27.4, MCHC 31.7 L, RDW 14.6 H, MPV 8.5, Gran % 59.9, Lymphocytes % 26.6, Monocytes % 11.3 H, Eosinophils % 2.0, Basophils % 0.2, Absolute Granulocytes 14.2 H, Segmented Neutrophils 53, Band Neutrophils 2, Absolute Lymphocytes 6.3 H, Lymphocytes 25, Monocytes 17 H, Absolute Monocytes 2.7 H, Eosinophils 3, Absolute Eosinophils 0.5, Absolute Basophils 0.1, Platelet Estimate VERIFIED BY SMEAR, Normocytic RBCs VERIFIED, Normochromic RBCs VERIFIED, Fld Total RBCs Counted 100 Microbiology 11/28 35 URINE ROUT: Urine Culture - ORD 11/28 35 BLOOD: Blood Culture - ORD 11/28 35 BLOOD: Blood Culture - ORD 11/27 29 UPPER RESP: Surveillance Culture - ORD 11/27 29 GI: Surveillance Culture - ORD Diagnostic Imaging: Viewed by Me: Radiology Read. Discussed w/RAD: Radiology Read. CXR Impression: no acute abnormality, no infiltrates, normal size heart, normal mediastinum, PATIENT: TREE WINTERS PRESENT AGE: 87 PATIENT ACCOUNT NO: [id number] : 32 LOCATION: [facility] ORDERING PHYSICIAN: Alex Salazar MD SERVICE DATE: 11/26/17 EXAM TYPE: RAD - XRY- PORTABLE CHEST XRAY EXAMINATION: XR PORTABLE CHEST CLINICAL INFORMATION: Chest pain COMPARISON: Multiple priors, most recent PET/CT 11/07/2017 TECHNIQUE: Portable frontal view of the chest was obtained. FINDINGS: Lung volumes are symmetric. No focal consolidation is seen. Lung nodules seen on recent PET CT are not as well delineated radiographically. No evidence of pneumothorax, significant pleural effusion, or pulmonary edema. Cardiac size appears at the upper limits of normal. A hiatal hernia is noted. No acute osseous findings are seen. IMPRESSION: No acute findings identified. Hiatal hernia. DICTATED BY: Ervin Mcnair MD DATE/TIME DICTATED:11/26/172337 GLASS LATHE OPERATOR:KARENA DATE/TIME TRANSCRIBED:11/26/172337 CONFIDENTIAL, DO NOT COPY WITHOUT APPROPRIATE AUTHORIZATION. <Electronically signed in Other Vendor System> SIGNED BY: Ervin Mcnair MD 11/26/17 6724 Initial ED EKG: sinus tach Departure Departure Disposition: STILL A PATIENT Condition: Stable Clinical Impression Primary Impression: Upper GI bleed Referrals: Gege RAMIREZ,Charisma (PCP/Family) Departure Forms: Customer Survey General Discharge Information Comments 11/26/17, 23:10... discussed with dr. naik (GI). await cbc to consider emergent endoscopy. 11/26/17, 23:36... discussed with dr. naik (GI). hcg 31.5... she will scope patient emergently. Critical Care Note Critical Care Note Critical Care Time: 30-74 min
[2017-11-26 23:12] LABS: ABSOLUTE BASOPHIL COUNT 0.1 /CUMM (0.0-0.2); ABSOLUTE EOSINOPHIL COUNT 0.5 /CUMM (0.0-0.7); ABSOLUTE GRANULOCYTE CT 14.2 /CUMM (1.4-6.5); ABSOLUTE LYMPH COUNT 6.3 /CUMM (1.2-3.4); ABSOLUTE MONOCYTE COUNT 2.7 /CUMM (0.10-0.60); BASOPHIL % 0.2 % (0.0-2.0); GRANULOCYTE % 59.9 % (42.2-75.2); HEMATOCRIT 31.4 % (37-47); MEAN CORPUSCULAR HGB 27.4 PG (27.0-31.0); MEAN CORPUSCULAR HGB CONC 31.7 G/DL (33.0-37.0); MEAN CORPUSCULAR VOLUME 86.7 FL (81.0-99.0); MEAN PLATELET VOLUME 8.5 FL (7.4-10.4); PLATELET COUNT 312 /CUMM (130-400); RBC DISTRIBUTION WIDTH 14.6 % (11.5-14.5); RED BLOOD CELL CT 3.63 /CUMM (4.20-5.40)
[2017-11-26 23:15] LABS: WHITE BLOOD CELL COUNT 23.8 /CUMM (4.8-10.8)
[2017-11-26 23:23] LABS: PT 11.8 SEC (9.4-12.5); PTT 23 SEC (25-37)
--- NOTE | 2017-11-26 23:44 | RADIOLOGY REPORT ---
EXAMINATION: XR PORTABLE CHEST CLINICAL INFORMATION: Chest pain COMPARISON: Multiple priors, most recent PET/CT 11/07/2017 TECHNIQUE: Portable frontal view of the chest was obtained. FINDINGS: Lung volumes are symmetric. No focal consolidation is seen. Lung nodules seen on recent PET CT are not as well delineated radiographically. No evidence of pneumothorax, significant pleural effusion, or pulmonary edema. Cardiac size appears at the upper limits of normal. A hiatal hernia is noted. No acute osseous findings are seen. IMPRESSION: No acute findings identified. Hiatal hernia.
[2017-11-27 00:35] VITALS: BP 135/74
--- NOTE | 2017-11-27 00:39 | Admission Certification ---
Admission Certification Certification Statement - As attending physician, I certify that at the time of - admission, based on clinical presentation, severity of - symptoms, need for further diagnostic testing and - therapeutic interventions, and risk of adverse outcomes - without in-hospital treatment, in my clinical assessment, - this patient requires an acute hospital stay for a minimum - of two nights or longer. I have also considered psychsocial - factors such as support system, advanced age, financial - issues, cognitive issues, and failed out-patient treatments, - past re-admission history, safety of patient, and lack of - compliance as applicable. Specific rationale supporting this admission is: Upper GI bleed with acute blood loss anemia requiring GI consult, urgent endoscopy and ICU level of care.
--- NOTE | 2017-11-27 01:18 | Cons- Gastroenterology ---
General Information and HPI Consulting Request Date of Consult: 11/27/17 Requested By: Henrique RAMIREZ,Gracia Reason for Consult: 1. Hematemesis 2. Hepatocellular Cancer, ? Liver Metastases 3. Acute Blood Loss Anemia 4. RUQ Abdominal Pain 5. Epigastric Pain Source of Information: patient, Electronic Medical Record History of Present Illness: Patient is an 87 year old white female well known to me from prior admission in March of this year when she was admitted with bloody diarrhea. She underwent incomplete colonoscopy and was found to have ischemic colitis as well as severe diverticulosis. She was recently seen by her PCP and found to have on 10/26 abnormal liver- associated enzymes. Her T. Bili was 1.4, her AST/ALT was 78/35 and her Alk Phos was 246. Total bilirubin was 1.4. Albumin was 3.8. Tonight her AST/ALT is 196 /51 with an alk phos of 290 and a total bili of 0.9 and an albumin of 3.3. She was sent for a CT Scan of the abdomen that showed 1. A marked change has occurred since 04/19/2013. The liver is filled with large and small masses in all lobes. There is vascular invasion of the posterior division of the right portal vein. Bile ducts are not dilated. The lesions are felt to be due to liver metastases, assuming that there is no risk factor for HCC. 2. Diverticulosis without diverticulitis. 3. Early lymphadenopathy in the brandie hepatis. This was followed by MRI that showed the following. FINDINGS: Lung bases appear unremarkable. Multiple gallstones filling the gallbladder. Gallstones are also identified at the level of the gallbladder neck. No gross evidence of choledocholithiasis. No definite evidence of intrahepatic biliary ductal dilatation. Minor prominence of the common bile duct noted proximally measuring approximately 0.8 cm in the maximal diameter. There is no gross evidence of pericholecystic fluid or edema. Evaluation of the abdominal viscera is limited without intravenous contrast. Liver demonstrates subcapsular slightly lobulated T2 hyperintense lesion measuring approximately 1.3 x 0.9 cm (series 2 image 12 and series 4 image 9). Additional smaller T2 hyperintense lesion segment 6 right hepatic lobe (series 2 image 8 and series 4 image 14). It measures approximately 0.5 cm in diameter. Spleen appears grossly unremarkable. Adrenal glands are within normal limits. Limited evaluation of the pancreas without intravenous contrast. No gross abnormality. Kidneys demonstrate normal size. Tiny low-attenuation cortical foci noted in the left kidney (series 2 image 5). These were also seen on the CT images with no significant change. There is a large hiatal hernia with approximately 50% of the stomach above the level of the diaphragm. Cystic structure in close proximity to the stomach near the diaphragmatic hiatus measuring approximately 2 cm. This was also seen on the recent CT scan. It was also seen on the prior CT scan from 02/09/2014. This may represent fluid-containing gastric diverticulum. It can be further assessed with upper GI series. Evaluation of the bowel loops is limited. Lymphovascular structures appear unremarkable. Visualized osseous structures demonstrate scoliosis and degenerative changes of the spine. IMPRESSION: 1. Multiple gallstones filling the gallbladder lumen. Stones extend to the neck of the gallbladder. No evidence of acute cholecystitis. 2. Mild prominence of the common bile duct. No gross evidence of choledocholithiasis. No evidence of intrahepatic ductal dilatation. 3. Large hiatal hernia with approximately 50% of the stomach above the level of the diaphragm. Suggestion of gastric diverticulum versus cystic structure abutting the hiatus. Stomach appears narrowed at the level of the hiatus. The neck of the hiatus measures 2.7 cm. Further assessment with upper GI series may be of value. 4. T2 hyperintense hepatic and left renal lesions. Evaluation is limited without intravenous contrast. On 11/20/2017 she underwent biopsy of her hepatic metastases. The pathology is as follows: DIAGNOSIS LIVER MASS, NEEDLE BIOPSY: MODERATELY DIFFERENTIATED ADENOCARCINOMA. TISSUE BLOCK SENT TO [facility] FOR IMMUNOHISTOCHEMICAL STAIN ANALYSIS REGARDING POSSIBLE PRIMARY SITES, INCLUDING COLON. Allergies/Medications Allergies: Coded Allergies: Penicillins (VAGINAL ITCH 06/11/16) Home Med List: Duloxetine HCl (Cymbalta) 60 MG CAPSULE.DR 1 CAP PO QPM DEPRESSION (Reported) Duloxetine Hydrochloride (Cymbalta) 30 MG CAPSULE.DR 1 CAP PO QAM DEPRESSION (Reported) Ferrous Sulfate (IRON) 325 MG (65 MG IRON) TABLET 1 TAB PO DAILY SUPPLEMENT ( Reported) Fluticasone/Vilanterol (Breo Ellipta 100-25 Mcg INH) 100 MCG-25 MCG/DOSE BLST.W.DEV 1 PUFF INH QPM RESP. (Reported) Gabapentin (Neurontin) 100 MG CAPSULE 1 CAP PO TID ANXIETY (Reported) Ipratropium/Albuterol Sulfate (Iprat-Albut 0.5-3(2.5) MG/3 Ml) 0.5 MG-3 MG (2.5 MG BASE)/3 ML AMPUL.NEB 1 VIAL INH TID RESP (Reported) Lisinopril (Prinivil) 20 MG TABLET 1 TAB PO DAILY Hypertension Omeprazole 20 MG CAPSULE.DR 1 CAP PO BID peptic ulcer .. Current Medications: Current Medications Sig/Narcisa Start time Last Medication Dose Route Stop Time Status Admin Acetaminophen 1,000 MG Q8P PRN 11/27 0045 AC N/A 1 UNIT IV Ampicillin Sodium/ 3,000 MG Q6H 11/27 0100 AC Sulbactam Sodium IV Sodium Chloride 100 ML Budesonide/ 2 PUF BID 11/27 09 AC Formoterol Fumarate INH Dextrose/Sodium 1,000 ML .Q8H 11/27 0015 AC Chloride IV Morphine Sulfate 2 MG Q8P PRN 11/27 0015 DC IV Ondansetron HCl 4 MG Q6P PRN 11/27 0015 AC IV Pantoprazole Sodium 0 .STK-MED ONE 11/26 2338 DC IV Pantoprazole Sodium 40 MG Q5H 11/26 2315 AC 11/26 Sodium Chloride 100 ML IV 2341 Pantoprazole Sodium 0 .STK-MED ONE 11/26 2305 DC IV Pantoprazole Sodium 80 MG ONCE ONE 11/26 2300 DC 11/26 IV 11/26 2301 2314 Sodium Chloride 1,000 ML BOLUS ONE 11/26 2300 DC 11/26 IV 11/26 2359 2314 Tiotropium [place] 1 PUF DAILY 11/27 09 AC INH Past History Travel History Traveled to [place] past 21 day No Medical History Neurological: NONE EENT: NONE Cardiovascular: hypertension Respiratory: COPD, ASTHMA Gastrointestinal: GERD, HIATAL HERNIA Hepatic: NONE Renal: NONE Musculoskeletal: NONE Psychiatric: anxiety Endocrine: NONE Blood Disorders: NONE Cancer(s): NONE Surgical History Surgical History: non-contributory Family History Relations & Conditions If Any: MOTHER (uterine cancer). FATHER (Heart disease). Psychosocial History Primary Language: Swiss Functional Ability ADLs Independent: dressing, eating, toileting, bathing. Ambulation: independent IADLs Independent: shopping, housework, finances, food prep, telephone, transportation , medication admin. Exam & Diagnostic Data Vital Signs and I&O Vital Signs Date Time Temp Pulse Resp B/P B/P Pulse O2 O2 Flow FiO2 Mean Ox Delivery Rate 11/27 0027 97.8 105 20 130/60 99 Nasal 10L Cannula 11/26 2341 95 Nasal 10L Cannula 11/26 2339 102 20 153/73 98 Nasal 10L Cannula 11/26 2323 107 20 118/56 91 Nasal 10L Cannula 11/26 2310 114 44 149/67 92 Nasal 6.0L Cannula 11/26 230 116 149/72 11/26 2299 117 147/72 91 Nasal 6.0L Cannula 11/268 96.8 128 48 158/76 95 Nasal 6.0L Cannula Intake & Output 11/27 04011/26 1600 11/26 1600 11/25 1600 Intake Total Output Total 200 Balance -200 Output, 200 Emesis Patient 174 lb Weight Weight Reported by Patient Measurement Method Physical Exam General Appearance: well developed/nourished, no apparent distress, alert, awake Head: atraumatic, normal appearance Ears, Nose, Throat: normal pharynx, abnormal Tympanic (R) Respiratory: wheezing Gastrointestinal: normal bowel sounds, soft, non-tender Extremities: normal inspection, no edema Neurologic/Psych: no motor/sensory deficits, awake, alert, oriented x 3 Cranial Nerves: normal hearing, normal speech Skin: intact, normal color, warm/dry Results Pertinent Lab Results: Laboratory Tests 11/26 11/26 2303 2303 Chemistry Sodium (137 - 145 mmol/L) 134 L Potassium (3.5 - 5.1 mmol/L) 4.2 Chloride (98 - 107 mmol/L) 92 L Carbon Dioxide (22 - 30 mmol/L) 29 Anion Gap (5 - 16) 13 BUN (7 - 17 mg/dL) 21 H Creatinine (0.5 - 1.0 mg/dL) 1.2 H Estimated GFR (>60 ml/min) 43 L BUN/Creatinine Ratio (7 - 25 %) 17.5 Glucose (65 - 99 mg/dL) 164 H Lactic Acid (0.7 - 2.1 mmol/L) 4.4 H Calcium (8.4 - 10.2 mg/dL) 9.1 Phosphorus (2.5 - 4.5 mg/dL) 5.3 H Magnesium (1.6 - 2.3 mg/dL) 2.2 Total Bilirubin (0.2 - 1.3 mg/dL) 0.9 Direct Bilirubin (< 0.4 mg/dL) 0.7 H AST (14 - 36 U/L) 196 H ALT (9 - 52 U/L) 51 Alkaline Phosphatase (<127 U/L) 290 H Troponin I (< 0.11 ng/ml) < 0.01 Total Protein (6.3 - 8.2 g/dL) 6.4 Albumin (3.5 - 5.0 g/dL) 3.3 L Amylase (30 - 110 U/L) 47 Lipase (23 - 300 U/L) 131 TSH (0.270 - 4.200 uIU/mL) Pending Free T4 (0.85 - 1.93 ng/dL) Pending Coagulation PT (9.4 - 12.5 SEC) 11.8 INR (0.90 - 1.19) 1.08 APTT (25 - 37 SEC) 23 L Hematology CBC w Diff MAN DIFF ORDERED WBC (4.8 - 10.8 /CUMM) 23.8 H RBC (4.20 - 5.40 /CUMM) 3.63 L Hgb (12.0 - 16.0 G/DL) 9.9 L Hct (37 - 47 %) 31.4 L MCV (81.0 - 99.0 FL) 86.7 MCH (27.0 - 31.0 PG) 27.4 MCHC (33.0 - 37.0 G/DL) 31.7 L RDW (11.5 - 14.5 %) 14.6 H Plt Count (130 - 400 /CUMM) 312 MPV (7.4 - 10.4 FL) 8.5 Gran % (42.2 - 75.2 %) 59.9 Lymphocytes % (20.5 - 51.1 %) 26.6 Monocytes % (1.7 - 9.3 %) 11.3 H Eosinophils % (0 - 5 %) 2.0 Basophils % (0.0 - 2.0 %) 0.2 Absolute Granulocytes (1.4 - 6.5 /CUMM) 14.2 H Segmented Neutrophils (42.2 - 75.2 %) 53 Band Neutrophils (0.0 - 5.0 %) 2 Absolute Lymphocytes (1.2 - 3.4 /CUMM) 6.3 H Lymphocytes (20.5 - 51.1 %) 25 Monocytes (1.7 - 9.3 %) 17 H Absolute Monocytes (0.10 - 0.60 /CUMM) 2.7 H Eosinophils (0 - 5.0 %) 3 Absolute Eosinophils (0.0 - 0.7 /CUMM) 0.5 Absolute Basophils (0.0 - 0.2 /CUMM) 0.1 Platelet Estimate (ADEQUATE) VERIFIED BY SMEAR Normocytic RBCs VERIFIED Normochromic RBCs VERIFIED Other Body Source Fld Total RBCs Counted (%) 100 Assessment/Plan Assessment/Recommendations: ASSESSMENT: 1. Hepatic Metastases, ? Primary Colon. Patient did not have complete colonoscopy in March due to the presence of ischemic colitis 2. Hematemesis -- patient with large hiatal hernia, ? Jona's Erosions, ? PUD 3. Abnormal Liver --Associated Enzymes due to metastatic disease 4. Acute Blood Loss Anemia RECOMMENDATIONS: 1. Serial H/H 2. Urgent EGD 3. Get records regarding PET Scan. Consider completion of colonoscopy given recent diagnosis of hepatic metastases. 4. Patient will require intubation for airway protection 5. Risks and benefits of procedure discussed with patient's daughter who signed consent. Consult Acknowledgment - Thank you for your consult request.
--- NOTE | 2017-11-27 02:11 | History & Physical ---
Divine Patel MD 11/27/17 0210: General Information and HPI MD Statement: I have seen and personally examined TREE WINTERS and documented this H&P. The patient is a 87 year old F who presented with a patient stated chief complaint of [bright red blood]. Source of Information: patient, Electronic Medical Record Exam Limitations: no limitations History of Present Illness: Patient is an 87-year-old female with a history of COPD on 1.5 L of oxygen at home, hypertension, sciatica, dropfoot, GERD, colonoscopy in 2017 showing severe diverticulosis and ulceration, recent history of multiple masses in the liver, lung, colon seen on PET scan, status post liver biopsy presenting this admission with chief complaint of bloody emesis. Patient reports that she has been having epigastric "irritation" for the past few days and has been feeling like she has indigestion. Patient states that this evening she was getting ready for bed and started vomiting bright red blood. Patient endorses bright sided abdominal pain at the site of her recent liver biopsy performed on November 20. Patient denies any nausea. Patient reports constipation and takes MiraLAX every other day. Patient denies any diarrhea. She reports that she has dark stools however states that she has been taking iron supplements. Patient denies any bright red blood per rectum. Patient's family was present at the time of the interview. Reports that patient was seen in the office due to low blood count at which point she was sent for imaging including PET scan that showed multiple masses on her lungs, colon, liver. Reports that patient had a biopsy of her liver one week prior to admission. Reports that over the past year patient has had an unintentional weight loss of approximately 40-50 pounds. Patient reports decreased appetite and night sweats. Patient denies fever, chills, chest pain, palpitations. Reports increasing shortness of breath and fatigue. Patient reports increased urinary pressure and increased thirst. Denies urinary frequency or burning. Denies hematuria. Allergies/Medications Allergies: Coded Allergies: Penicillins (VAGINAL ITCH 06/11/16) Home Med list Duloxetine HCl (Cymbalta) 60 MG CAPSULE.DR 1 CAP PO QPM DEPRESSION (Reported) Duloxetine Hydrochloride (Cymbalta) 30 MG CAPSULE.DR 1 CAP PO QAM DEPRESSION (Reported) Ferrous Sulfate (IRON) 325 MG (65 MG IRON) TABLET 1 TAB PO DAILY SUPPLEMENT ( Reported) Fluticasone/Vilanterol (Breo Ellipta 100-25 Mcg INH) 100 MCG-25 MCG/DOSE BLST.W.DEV 1 PUFF INH QPM RESP. (Reported) Gabapentin (Neurontin) 100 MG CAPSULE 1 CAP PO TID ANXIETY (Reported) Ipratropium/Albuterol Sulfate (Iprat-Albut 0.5-3(2.5) MG/3 Ml) 0.5 MG-3 MG (2.5 MG BASE)/3 ML AMPUL.NEB 1 VIAL INH TID PRN SOB (Reported) Omeprazole 20 MG CAPSULE.DR 1 CAP PO BID peptic ulcer .. Past History Travel History Traveled to [place] past 21 day No Medical History Neurological: NONE EENT: NONE Cardiovascular: hypertension Respiratory: COPD, ASTHMA Gastrointestinal: GERD, HIATAL HERNIA Hepatic: NONE Renal: NONE Musculoskeletal: NONE Psychiatric: anxiety Endocrine: NONE Blood Disorders: NONE Cancer(s): NONE History of MRSA: No History of VRE: No History of CDIFF: No Surgical History Surgical History: non-contributory Past Family/Social History Family History Relations & Conditions if any MOTHER (uterine cancer). FATHER (Heart disease). Psychosocial History Primary Language: Yakut Functional Ability ADLs Independent: dressing, eating, toileting, bathing. Ambulation: independent IADLs Independent: shopping, housework, finances, food prep, telephone, transportation , medication admin. Review of Systems Review of Systems Constitutional: Reports: see HPI. EENTM: Reports: no symptoms. Cardiovascular: Reports: no symptoms. Respiratory: Reports: see HPI. GI: Reports: see HPI. Genitourinary: Reports: see HPI. Musculoskeletal: Reports: no symptoms. Skin: Reports: no symptoms. Neurological/Psychological: Reports: anxiety. Hematologic/Endocrine: Reports: see HPI. Immunologic/Allergic: Reports: no symptoms. Exam & Diagnostic Data Last 24 Hrs of Vital Signs/I&O Vital Signs Date Time Temp Pulse Resp B/P B/P Pulse O2 O2 Flow FiO2 Mean Ox Delivery Rate 11/27 0400 98 Nasal 2.0L Cannula 11/27 0035 97.9 107 20 135/74 99 Nasal 10L Cannula 11/27 0027 97.8 105 20 130/60 99 Nasal 10L Cannula 11/26 2341 95 Nasal 10L Cannula 11/26 2339 102 20 153/73 98 Nasal 10L Cannula 11/263 107 20 118/56 91 Nasal 10L Cannula 11/26 2310 114 44 149/67 92 Nasal 6.0L Cannula 11/26 2305 116 149/72 11/26 2299 117 147/72 91 Nasal 6.0L Cannula 11/26 2257 96.8 128 48 158/76 95 Nasal 6.0L Cannula Intake & Output 11/27 0800 11/27 0000 11/26 1600 Intake Total Output Total 200 Balance -200 Output, 200 Emesis Patient 177 lb 174 lb Weight Weight Bed scale Reported by Patient Measurement Method Physical Exam General Appearance Alert, Oriented X3, Cooperative, No Acute Distress Skin No Rashes, No Breakdown, No Significant Lesion Skin Temp/Moisture Exam: Warm/Dry Sepsis Skin Exam (color): Normal for Ethnicity HEENT Atraumatic, PERRLA, EOMI, dry mucosal membranes, oropharyneal cavity with bright red blood, conjunctival pallor Neck Supple, No JVD Lymphatic Cervical nl Cardiovascular Regular Rate, Normal S1, Normal S2, No Murmurs Lungs bilateral expiratory wheezing Abdomen Normal Bowel Sounds, Soft, No Tenderness, No Hepatospenomegaly, No Masses Neurological Normal Speech, Strength at 5/5 X4 Ext, Normal Tone, Sensation Intact, Cranial Nerves 3-12 NL Extremities No Clubbing, No Cyanosis, No Edema, Normal Pulses, No Tenderness/ Swelling Vascular Normal Pulses, Pulses Symmetrical Last 24 Hrs of Labs/Juan: Laboratory Tests 11/27/17 023: Lactic Acid 2.0 11/27/17 0236: Anion Gap 9, Estimated GFR 53 L, Glucose 130 H, Calcium 7.9 L, Phosphorus 4.6 H, Magnesium 1.9, Total Bilirubin 0.8, AST 179 H, ALT 48, Albumin 2.6 L, CBC w Diff NO MAN DIFF REQ, RBC 2.92 L, MCV 85.8, MCH 27.6, MCHC 32.1 L, RDW 14.7 H, MPV 8.5, Gran % 80.6 H, Lymphocytes % 8.9 L, Monocytes % 9.6 H, Eosinophils % 0.7, Basophils % 0.2, Absolute Granulocytes 11.1 H, Absolute Lymphocytes 1.2, Absolute Monocytes 1.3 H, Absolute Eosinophils 0.1, Absolute Basophils 0 11/27/17 0230: Urinalysis LIGHT H, Urine Color YEL, Urine Clarity HAZY H, Urine pH 5.5, Ur Specific [facility] >= 1.030, Urine Protein 30 H, Urine Ketones NEG, Urine Nitrite NEG, Urine Bilirubin NEG, Urine Urobilinogen 1.0, Ur Leukocyte Esterase SMALL H , Ur Microscopic SEDIMENT EXAMINED, Urine WBC 15-25 H, Ur Epithelial Cells MOD H, Urine Bacteria MOD H, Hyaline Casts FEW H, Urine Hemoglobin NEG, Urine Glucose NEG 11/26/172302: Lactic Acid 4.4 H 11/26/172302: Anion Gap 13, Estimated GFR 43 L, BUN/Creatinine Ratio 17.5, Glucose 164 H, Calcium 9.1, Phosphorus 5.3 H, Magnesium 2.2, Total Bilirubin 0.9, Direct Bilirubin 0.7 H, AST 196 H, ALT 51, Alkaline Phosphatase 290 H, Troponin I < 0.01, Total Protein 6.4, Albumin 3.3 L, Amylase 47, Lipase 131, TSH 2.580, Free T4 1.48, PT 11.8, INR 1.08, APTT 23 L, CBC w Diff MAN DIFF ORDERED, RBC 3.63 L , MCV 86.7, MCH 27.4, MCHC 31.7 L, RDW 14.6 H, MPV 8.5, Gran % 59.9, Lymphocytes % 26.6, Monocytes % 11.3 H, Eosinophils % 2.0, Basophils % 0.2, Absolute Granulocytes 14.2 H, Segmented Neutrophils 53, Band Neutrophils 2, Absolute Lymphocytes 6.3 H, Lymphocytes 25, Monocytes 17 H, Absolute Monocytes 2.7 H, Eosinophils 3, Absolute Eosinophils 0.5, Absolute Basophils 0.1, Platelet Estimate VERIFIED BY SMEAR, Normocytic RBCs VERIFIED, Normochromic RBCs VERIFIED, Fld Total RBCs Counted 100 Microbiology 11/27 0400 GI: Surveillance Culture - RECD 11/27 0315 BLOOD: Blood Culture - RECD 11/27 0230 URINE ROUT: Urine Culture - RECD 11/27 0230 UPPER RESP: Surveillance Culture - RECD 11/27 0036 BLOOD: Blood Culture - COLB Assessment/Plan Assessment: Patient is a 87-year-old female with past medical history of COPD on 1.5 L oxygen at home, hypertension, GERD, previous colonoscopy in 2017 showing severe diverticulosis and ischemic ulceration of the colon, recently found to have multiple masses and her liver, lung, colon, status post liver biopsy presenting this admission with chief complaint of multiple episodes of bloody emesis. Patient will be admitted to the ICU for management of followin. Acute blood loss anemia secondary to Upper GI bleed - Admitted to ICU - q2h vital checks - GI consult had and scoped patient today. EGD shows LA Grade A-B Esophagitis, ? Steffi Lomeli Tear, Unclear Etiology of large Volume Hematemesis, Large Hiatal Hernia with Jona's Erosions - CBC every 8 hours - Type and cross - Consent for transfusion obtained - Transfuse for hemoglobin/hematocrit less than 7/21 - Protonic drip - Nothing by mouth pending GI recommendations - IV fluid hydration 100cc/hr 2. Acute hypoxic respiratory failure Patient presented with increased oxygen requirements likely due to COPD exacerbation and possible aspiration pneumonia in the setting of multiple episodes of bloody emesis. - IV Solu-medrol 125mg x 1 today- okay'ed by GI - Continue IV Solu-medrol 40mg q8h - Start IV Unasyn 3gm q6h - Aspiration precautions - Oxygen supplementation - wean off as tolerated - TRC/DuoNeb - Repeat CBC - EKG and trop in AM - trend lactic acid 3. ROSA ELENA likely prerenal secondary to acute blood loss - Continue gentle IV hydration - Avoid nephrotoxic agents - Strict I/O - Repeat creatinine in AM DVT PPx: ALPS only Diet: NPO pending GI recommendations Code: Full Code As Ranked By This Provider Problem List: 1. Upper GI bleed 2. ROSA ELENA (acute kidney injury) 3. COPD exacerbation Core Measures/Misc (04/16) Acute Coronary Syndrome ACS Diagnosis: No Congestive Heart Failure Congestive Heart Failure Diagnosis No Cerebrovascular Accident CVA/TIA Diagnosis: No VTE (View Protocol) VTE Risk Factors Age>40 No Mechanical VTE Prophylaxis d/t N/A MechProphylax Ordered No VTE Pharm Prophylaxis d/t Bleeding (Active) Sepsis (View protocol) Sepsis Present: No Henrique RAMIREZ, [facility] 11/27/17 0320: Attending MD Review Statement Attending Statement Attending MD Statement: examined this patient, discuss w/resident/PA/FUNDER, agreed w/resident/PA/FUNDER, discussed with family, reviewed images, amended to note Attending Assessment/Plan: 87 yo F with h/o COPD on 1.5 L nocturnal O2, HTN, CKD stage 3, left foot drop, GERD is brought in for evaluation of hematemesis. Patient reports for the past 3 nights, she has been having epigastric discomfort, frequent burping but no heartburn. Tonight just when she was about to get to bed, she vomited bright red blood with clots. She then vomited enroute to the ER and also while in the ER. She reports having dark stools but attributes it to iron supplements. She denies use of NSAIDs or aspirin. Of note, patient was sent in by PCP for a CT abd/pelvis to evaluate abdominal pain, abnormal LFTs and leukocytosis. CT was suggestive of a liver mass concerning for metastasis. PET scan with FDG activity in the liver, right colon and lungs. 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 Patient is yet to be informed of these results. Patient reports weight loss of ~ 50 lbs over 1 year, night sweats and loss of appetite. Patient was last admitted to [place] (Mar 2017) for GI bleed evaluated with EGD (showing large hiatal hernia) and Colonoscopy (s/o severe diverticulosis and ischemic colon ulceration ), and she was to have a repeat Colonoscopy in 6-8 weeks as this was an incomplete one. Vitals: afebrile, HR 100-110's, BP 130/60, sats 95% on 6L --> 99% on 10L. Exam: awake, alert oriented, dry mucosa with blood tinged teeth, tongue and posterior pharynx, cervical lymphadenopathy+, Chest bibasilar crackles+ with expiratory wheeze, reduced air entry on left, Heart S1S2 regular tachycardic, Abd soft, right upper quadrant pain, Left foot drop noted, left foot cold, difficult to palpate pulse, Right foot warm with palpable pulse. Labs: WBC 23.8, bands 2, H/H 9.9/31.4 (baseline 8-10/27-34), INR 1.08, Na 134, BUN 21, creat 1.2 (Baseline), lactic acid 4.4, T. Bili 0.9, AST 196, ALT 51, Alk phos 290, trop neg. UA proteinuria, small LE, WBC 15-25. CXR: no acute findings. EKG: sinus tachycardia, PVC's, Qtc 468. Echo (2017): EF >65%, stage 1 diastolic dysfunction. Assessment and plan: 1. Upper GI bleed possible differential being gastritis/ esophagitis, PUD, steffi-melida tear 2. Acute blood loss anemia 3. Acute on chronic hypoxic respiratory failure with possible aspiration and COPD exacerbation 4. Lactic acidosis 5. Leukocytosis likely reactive, although cannot rule out underlying infectious process 6. Liver lesions/ metastases with possibly primary colon 7. Asymptomatic bacteriuria 8. CKD stage 3 stable - Admit to ICU - NPO - IV fluids maintenance, trend lactic acid - Type and crossmatch - Two wide bore peripheral lines - Transfuse if Hb < 7.0 - CBC Q8 - GI consult (Dr. Galindo to do stat EGD) - IV protonix drip - No NSAIDs or hepatototxic meds - TRC nebs - Panculture - IV Unasyn Q6 for empiric coverage for aspiration - IV solumedrol 125 once followed by 40 mg Q8 - CRCU consult - Repeat EKG and troponin in AM - Plan discussed with patient, daughter and other family members at bedside. - Watch for further bleeding and inform GI DVT ppx Alps. 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 She presented to the emergency department due to bloody vomiting. She stated that for the past 3 night she has been having epigastric discomfort with frequent burping but no heartburn or chest pain. she stated that late tonight just when she was about to get to bed to sleep, she started to vomited bright red blood with clots that also was noticed by her daughter. When She arrived to the ER also she vomited. She reports having dark stools but attributes it to iron supplements. She denies current use of NSAIDs. She stated that Patient underwent liver biopsy on November 20, pathology suggestive of moderately differentiated adenocarcinoma with possible primary site being colon. She had colonoscopy and upper endoscopy that was done when she was admitted to HOSPITAL IN 2016 FOR FURTHER EVALUATION OF COFFEE-GROUND EMESIS AND MELENA. She was started on protonix drip and received 1 L of NS bolus, she was placed on > 6 L of O2 as she was reporting SOB, wheezing without any chest pain or heart racing. Physical examination, lab and imaging as above. She underwent urgent EGD that showed 1. LA Grade A-B Esophagitis 2. ? Steffi Lomeli Tear 3. Unclear Etiology of large Volume Hematemesis 4. Large Hiatal Hernia with Jona's Erosions. that was done on the bedside and she was intubated for the procedure, she is doing fine after the EGD she on 5 L of O2 with O2 sat >91% Problem list - Upper GI bleed with Acute blood loss anemia - Acute on chronic hypoxic respiratory failure with possible aspiration and COPD exacerbation - Lactic acidosis most likely due to above. - Leukocytosis likely reactive, but cannot rule out underlying infectious process - Liver lesions/ metastases with possibly primary colon Plan: -Admit patient to critical care unit -Vitals every shift, continuous BP monitoring -Continue Protonix drip. -IV fluid hydration of D5 normal saline at 125 mL per hour -Status post urgent EGD, the patient may need a colonoscopy this week, plan will be discussed with the patient oncologist. -Guaiac all stool, avoid NSAIDs -CBC every 8, keep hemoglobin level more than 7 -Type and crossmatch -125 mg IV Solu-Medrol followed by 40 mg IV every 8 discuss with the GI team and they agreed. -TRC and nebs as needed, continue home inhaler. -Trend lactic acid -Obtain Blood and urine culture, urine analysis -Start IV Unasyn 3 g every 6, aspiration precaution -Troponin and EKG in a.m. -Patient can be started on clear liquid diet in a.m. GI recommend. -Pain pathway -DVT prophylaxis: Alps -Full code
--- NOTE | 2017-11-27 02:21 | Proc Note Endoscopy ---
Endoscopy Procedure Medical History: unchanged Mental Status: alert/oriented Heart/Lung Eval Prior to Sedation: within normal limits Candidate for Sedation? Yes Procedure Date: 11/27/17 Procedure Type: EGD Simulation Technician: MD Galindo Deborah E. ASA Classification: III Indications: 1. Hematemesis 2. Acute Blood Loss Anemia 3. Epigastric and RUQ Pain Instrument: diagnostic gastroscope Meds Received: GETA Patient's Tolerance: good Complications: none Extent Reached: second part of duodenum Procedure: Note: Informed consent was obtained prior to procedure. Risks and benefits of procedure were discussed with patient. Potential complications discussed included perforation, bleeding, abdominal pain, and adverse reaction to medications. It was explained that iany or all of these complications could result in the need for extended hospitalization, emergency surgery, transfusion of packed red blood cells (with the risk of HIV or hepatitis virus), intubation with mechanical ventilation, and possible need for antibiotics. It was further explained that an existing tumor polyp or mucosal abnormality might not be identified at the time of the procedure thus resulting in a missed opportunity for early diagnosis and treatment of a gastrointestinal malignancy or disease with possible interval development of a gastrointestinal cancer or other disease with possible worsening of clinical condition in the interval between endoscopies. It was also discussed that complications are not limited to those listed above. Possible alternatives to endoscopic treatment or evaluation were discussed. All questions were answered. Continuous EKG and blood pressure monitors were attached. Supplemental oxygen was provided with O2 Sat monitoring. Patient was placed in the left lateral decubitus position. A surgical timeout was performed. All persons in the room were identified. All concerns were expressed and answered. A bite block was placed in the mouth and sedation was administered by anesthesia and titrated to comfort prior to starting the procedure. The Olympus upper endoscope was advanced under direct vision to the level of the third portion of the duodenum. Esophagus: The esophagus had a moderate-sized hiatal hernia. There were several linear erosions with no stigmata of bleeding extending from the GE junction to the midesophagus. There were shallow areas of mucosal atrophy and erosion at the GE junction. Within the hiatal hernia sac there were scattered areas of Jona erosion. But no findings that were convincing for an ulcer or active Steffi-Lomeli tear. However, there was refluxed food debris and old blood that coated the GE junction and hernia sac that could not be adequately suctioned so large and small lesions may have been missed. No esophageal varices were noted. Stomach: The stomach had diffuse mucosal atrophy throughout its entirety. The pylorus was patent and easily intubated.. Retroflexed view of the cardiofundic region revealed a moderate-sized hiatal hernia. There was thick black material that could not be completely suctioned and which may have obscured an underlying ulcer or mass. There were normal rugae and normal distensibility. The pylorus was patent and easily intubated. Duodenum: The duodenum was fully examined from bulb down to the third portion. There was a normal mucosal vascular pattern throughout. The major papilla was visualized and was normal in appearance there was no blood coming from the major papilla. With the endoscope in the forward-viewing position, it was slowly withdrawn and all areas were re-inspected and findings are as described previously. Patient tolerated the procedure well. EBL: Minimal Specimens Removed: None Findings: 1. Esophagitis with Linear Erosions 2. ? Superficial Steffi Lomeli Tear 3. Large Hiatal hernia with Jona's Erosions 4. Atrophic Gastritis 5. Normal Small Bowel, Major Papilla normal in appearance Impression: 1. LA Grade A-B Esophagitis 2. ? Steffi Lomeli Tear 3. Unclear Etiology of large Volume Hematemesis 4. Large Hiatal Hernia with Jona's Erosions Recommendations: 1. Serial H/H 2. Continue Protonix Drip 3. Consider repeat EGD at time of Colonoscopy 4. Transfuse as needed CC: Gege RAMIREZ,Charisma; Sean RAMIREZ,Adelfo Alvarado
[2017-11-27 03:04] LABS: ABSOLUTE BASOPHIL COUNT 0 /CUMM (0.0-0.2); ABSOLUTE EOSINOPHIL COUNT 0.1 /CUMM (0.0-0.7); ABSOLUTE GRANULOCYTE CT 11.1 /CUMM (1.4-6.5); ABSOLUTE LYMPH COUNT 1.2 /CUMM (1.2-3.4); ABSOLUTE MONOCYTE COUNT 1.3 /CUMM (0.10-0.60); BASOPHIL % 0.2 % (0.0-2.0); EOSINOPHIL % 0.7 % (0-5); GRANULOCYTE % 80.6 % (42.2-75.2); MEAN CORPUSCULAR HGB 27.6 PG (27.0-31.0); MEAN CORPUSCULAR HGB CONC 32.1 G/DL (33.0-37.0); MEAN CORPUSCULAR VOLUME 85.8 FL (81.0-99.0); MEAN PLATELET VOLUME 8.5 FL (7.4-10.4); PLATELET COUNT 213 /CUMM (130-400); RBC DISTRIBUTION WIDTH 14.7 % (11.5-14.5); RED BLOOD CELL CT 2.92 /CUMM (4.20-5.40); WHITE BLOOD CELL COUNT 13.8 /CUMM (4.8-10.8)
[2017-11-27 03:09] LABS: HEMATOCRIT 25.1 % (37-47)
--- NOTE | 2017-11-27 07:04 | Cons- CRCU ---
Alon Rodriguez 11/27/17 0703: General Information and HPI Consulting Request Date of Consult: 11/27/17 Requested By: Dr. Chao Source of Information: patient Exam Limitations: no limitations History of Present Illness: Mr Camargo is a 87 year old woman w/ a PMHx of COPD (is 1.5 L oxygen), hypertension, recent diagnosis of ischemic colitis and severe diverticulosis (), who was evaluated recently for abnormal liver enzymes and was found to have multiple liver metastases likely primary source-Colon, who eventually got evaluated by Dr. Suazo (hematology/oncology), and underwent liver biopsy which showed moderately differentiated adenocarcinoma (waiting for final IHC stain analysis) came to the hospital with a chief concern of hematemesis after retching and excessive cough. She was also concerned about right upper quadrant abdominal pain at that time. At the time of admission-vitals 96.8, pulse rate 128, blood pressure 158/76, 91% on 6 L oxygen. He underwent an emergent upper endoscopy with findings of LA grade a-B esophagitis and possible Steffi-Lomeli tear. Etiology of this large volume hematemesis was unclear, but hiatal hernia with multiple Jona's lesions could've constipated to hematemesis. She was started on Protonix drip and was monitored on intensive care unit. Report of excessive NSAID use, chest pain, palpitations. No family history of malignancy supported, but reported unintentional weight loss in the last few months. Allergies/Medications Allergies: Coded Allergies: Penicillins (VAGINAL ITCH 06/11/16) Home Med List: Duloxetine HCl (Cymbalta) 60 MG CAPSULE.DR 1 CAP PO QPM DEPRESSION (Reported) Duloxetine Hydrochloride (Cymbalta) 30 MG CAPSULE.DR 1 CAP PO QAM DEPRESSION (Reported) Ferrous Sulfate (IRON) 325 MG (65 MG IRON) TABLET 1 TAB PO DAILY SUPPLEMENT ( Reported) Fluticasone/Vilanterol (Breo Ellipta 100-25 Mcg INH) 100 MCG-25 MCG/DOSE BLST.W.DEV 1 PUFF INH QPM RESP. (Reported) Gabapentin (Neurontin) 100 MG CAPSULE 1 CAP PO TID ANXIETY (Reported) Ipratropium/Albuterol Sulfate (Iprat-Albut 0.5-3(2.5) MG/3 Ml) 0.5 MG-3 MG (2.5 MG BASE)/3 ML AMPUL.NEB 1 VIAL INH TID PRN SOB (Reported) Omeprazole 20 MG CAPSULE. 1 CAP PO BID peptic ulcer .. Review of Systems Review of Systems Constitutional: Reports: see HPI. EENTM: Denies: visual changes. Cardiovascular: Denies: chest pain, palpitations. Respiratory: Reports: cough. Denies: hemoptysis. GI: Reports: abdominal pain, nausea. Denies: diarrhea, melena. Genitourinary: Denies: dysuria. Musculoskeletal: Denies: back pain. Skin: Denies: change in skin color, jaundice. Neurological/Psychological: Denies: dementia. Hematologic/Endocrine: Denies: bruising, bleeding. Past History Travel History Traveled to [place] past 21 day No Medical History Blood Transfusion Hx: No Neurological: NONE EENT: NONE Cardiovascular: hypertension Respiratory: COPD, ASTHMA Gastrointestinal: GERD, HIATAL HERNIA Hepatic: NONE Renal: NONE Musculoskeletal: NONE Psychiatric: anxiety Endocrine: NONE Blood Disorders: NONE Cancer(s): NONE Surgical History Surgical History: cholecystectomy Family History Relations & Conditions If Any: MOTHER (uterine cancer). FATHER (Heart disease). Psychosocial History Where Do You Live? Home Primary Language: Urdu Smoking Status: Former Smoker Functional Ability ADLs Independent: dressing, eating, toileting, bathing. Ambulation: independent IADLs Independent: shopping, housework, finances, food prep, telephone, transportation , medication admin. Exam & Diagnostic Data Last 24 Hrs of Vital Signs/I&O Vital Signs Date Time Temp Pulse Resp B/P B/P Pulse O2 O2 Flow FiO2 Mean Ox Delivery Rate 11/27 0400 98 Nasal 2.0L Cannula 11/27 0035 97.9 107 20 135/74 99 Nasal 10L Cannula 11/27 0027 97.8 105 20 130/60 99 Nasal 10L Cannula 11/26 2341 95 Nasal 10L Cannula 11/26 2339 102 20 153/73 98 Nasal 10L Cannula 11/26 2323 107 20 118/56 91 Nasal 10L Cannula 11/26 2310 114 44 149/67 92 Nasal 6.0L Cannula 11/26 2305 116 149/72 11/26 2300 117 147/72 91 Nasal 6.0L Cannula 11/268 96.8 128 48 158/76 95 Nasal 6.0L Cannula Intake & Output 11/27 0800 11/27 0000 11/26 1600 Intake Total Output Total 200 Balance -200 Output, 200 Emesis Patient 177 lb 174 lb Weight Weight Bed scale Reported by Patient Measurement Method Physical Exam General Appearance: alert Other Physical Findings: General Exam: AAOx3, palor, No acute distress, Skin: No rashes, no breakdown; HEENT: PERRLA, EOMI;Neck: Supple, No JVDl; No cervical lymphadenopathy;CVS: Reg Rate, Normal S1,S2, No MGR; Resp: Normal air entry, bilateral ronchi and rales; Abdomen: Soft, No tenderness, Normal Bowel Sounds;Neuro: Normal Speech, Strength 5/5 b/l x 4 extremities, Sensation intact, CN III-XII NL, Reflexes 2+; Extremities: No cyanosis, no pedal edema Last 48 Hrs of Labs/Juan: Laboratory Tests 11/27/17 023: Lactic Acid 2.0 11/27/17235: Anion Gap 9, Estimated GFR 53 L, Glucose 130 H, Calcium 7.9 L, Phosphorus 4.6 H, Magnesium 1.9, Total Bilirubin 0.8, AST 179 H, ALT 48, Albumin 2.6 L, CBC w Diff NO MAN DIFF REQ, RBC 2.92 L, MCV 85.8, MCH 27.6, MCHC 32.1 L, RDW 14.7 H, MPV 8.5, Gran % 80.6 H, Lymphocytes % 8.9 L, Monocytes % 9.6 H, Eosinophils % 0.7, Basophils % 0.2, Absolute Granulocytes 11.1 H, Absolute Lymphocytes 1.2, Absolute Monocytes 1.3 H, Absolute Eosinophils 0.1, Absolute Basophils 0 11/27/17 0230: Urinalysis LIGHT H, Urine Color YEL, Urine Clarity HAZY H, Urine pH 5.5, Ur Specific [place] >= 1.030, Urine Protein 30 H, Urine Ketones NEG, Urine Nitrite NEG, Urine Bilirubin NEG, Urine Urobilinogen 1.0, Ur Leukocyte Esterase SMALL H , Ur Microscopic SEDIMENT EXAMINED, Urine WBC 15-25 H, Ur Epithelial Cells MOD H, Urine Bacteria MOD H, Hyaline Casts FEW H, Urine Hemoglobin NEG, Urine Glucose NEG 11/26/172302: Lactic Acid 4.4 H 11/26/172302: Anion Gap 13, Estimated GFR 43 L, BUN/Creatinine Ratio 17.5, Glucose 164 H, Calcium 9.1, Phosphorus 5.3 H, Magnesium 2.2, Total Bilirubin 0.9, Direct Bilirubin 0.7 H, AST 196 H, ALT 51, Alkaline Phosphatase 290 H, Troponin I < 0.01, Total Protein 6.4, Albumin 3.3 L, Amylase 47, Lipase 131, TSH 2.580, Free T4 1.48, PT 11.8, INR 1.08, APTT 23 L, CBC w Diff MAN DIFF ORDERED, RBC 3.63 L , MCV 86.7, MCH 27.4, MCHC 31.7 L, RDW 14.6 H, MPV 8.5, Gran % 59.9, Lymphocytes % 26.6, Monocytes % 11.3 H, Eosinophils % 2.0, Basophils % 0.2, Absolute Granulocytes 14.2 H, Segmented Neutrophils 53, Band Neutrophils 2, Absolute Lymphocytes 6.3 H, Lymphocytes 25, Monocytes 17 H, Absolute Monocytes 2.7 H, Eosinophils 3, Absolute Eosinophils 0.5, Absolute Basophils 0.1, Platelet Estimate VERIFIED BY SMEAR, Normocytic RBCs VERIFIED, Normochromic RBCs VERIFIED, Fld Total RBCs Counted 100 Diagnostic Data EKG Results Normal sinus rhythm, mild left axis deviation, left anterior fascicular block, no ST-T wave changes noted. CXR Results No acute findings identified. Hiatal hernia. Assessment/Plan CRCU Impression/Plan: Mr Camargo is a 87 year old woman w/ a PMHx of COPD (1.5 L oxygen), hypertension, recent diagnosis of ischemic colitis and severe diverticulosis (), who was evaluated recently for abnormal liver enzymes and was found to have multiple liver metastases likely primary source-Colon, who eventually got evaluated by Dr. Suazo (hematology/oncology), and underwent liver biopsy which showed moderately differentiated adenocarcinoma (waiting for final IHC stain analysis) came to the hospital with a chief concern of hematemesis after retching of unclear etiology with possible explanations such as Steffi-Lomeli tear, esophagitis. Pertinent lab findings WBC 23.8 (11/26)-->11.2 (11/27) Hemoglobin 9.9 (11/26)-->8.5 (11/27) Platelets 312 Electrolytes: Sodium 134, potassium 4.2 Renal function: BUN 21, creatinine 1.2(11/26)-->1.0(11/27) INR 1.08. Lactic acid 4.4--2.0--1.6 AST 196(11/26)-->337(11/27) ALT 51-->77 Total bilirubin 0.9 Alkaline phosphatase 290. EGD performed by Dr. Nascimento 11/27/2017 report: 1. Esophagitis with Linear Erosions 2. ? Superficial Steffi Lomeli Tear 3. Large Hiatal hernia with Jona's Erosions 4. Atrophic Gastritis 5. Normal Small Bowel, Major Papilla normal in appearance Impression: 1. LA Grade A-B Esophagitis 2. ? Steffi Lomeli Tear 3. Unclear Etiology of large Volume Hematemesis 4. Large Hiatal Hernia with Jona's Erosions CT abdomen 10/26/17 Fluorine-18 FDG PET/CT Scan whole body 11/08/2017: 1. Extensive intensely FDG avid lesions throughout the liver are most likely due to diffuse metastatic malignancy. 2. A discrete focus of markedly increased FDG activity in the right colon isnoted as described above, and while this could be physiological, it isstrongly suspicious for a bowel malignancy and correlation with colonoscopyis recommended. 3. A large hiatal hernia is present, with diffusely increasedFDG activity which could be physiological or inflammatory, but a malignantlesion within this cannot be ruled out. In addition several centimeters oflength in the esophagus proximal to the hiatal hernia, the level above thecarina and extending inferiorly shows abnormal FDG activity and some wallthickening and this could also be malignant in etiology. Further evaluationwith endoscopy is recommended to better characterize these abnormalities.3. An FDG avid hypodense right thyroid nodule is probably present at thelower pole of the right lobe of the thyroid gland. While this is likely within the thyroid gland, its inferior and posterior location would be at asite typical of a parathyroid adenoma, and these are frequently FDG avid.Further characterization of these findings with thyroid ultrasonography wouldbe of additional diagnostic value. Blood calcium and PTH levels would be helpful in ruling out a parathyroid adenoma.4. Multiple subcentimeter pulmonary nodules are present, the largest of whichare FDG avid, but the smaller of which are too small to be characterized onthe FDG PET images. These re strongly suspicious for metastatic disease. 5. No additional abnormalities suspicious for other metastatic or malignantlesions are noted. 6. Intense FDG activity in the right foot is present at several sites. Theseinclude diffuse abnormalities in the metatarsal bones of the second throughfifth digits with no definite corresponding CT abnormalities. These findingsare suspicious for multiple stress fractures, but could also be due toosteomyelitis. FDG activity in the soft tissues low lateral dorsal surface of the right foot could represent physiological muscle uptake, but because ofits intensity, the finding is suspicious for infection at this site. Initialfollow- up with plain films of the right foot is recommended, but if these arenot diagnostic, further characterization of these abnormalities with IVcontrast enhanced MRI of the right foot is recommended.7. Diffuse vascular calcifications including coronary. Etiology in her case, is likely due to either an acute tear or esophagitis contributing to hematemesis. She also has liver metastases, this most likely from colon cancer which would make her have abnormal coagulated profile given decreased anti-coagulants such as protein C, protein S etc. She would definetly need evaluation of EGD and possible colonoscopy. In regards to her worsening cough, this could be due to aspiration pneumonitis secondary to hematemesis for which she is currently on unasyn emperically awaiting cultures. Problem list : 1. Hematemesis 2. hisotry of COPD 3. Liver mets likely primary Colon 4. History of hypertension 5. Stage 3 CKD Plan: Respiratory- Aspiration pneumonitis and pneumonia in the differential. She also has COPD for which she was given solumedrol which could be continued. - Continue Solu-Medrol IV, but would decrease the frequency. - Continue Unasyn 3gm q6, pending cultures Infectious- - Leukocytosis improving. -Continue antibiotics for now. -Monitor for any fever. Hematology- -Hemoglobin 8.1 -CBC every 12 hours -Transfuse, if there is a positive drop in H&H. -Monitor hemodynamics closely. -Avoid antiplatelet agents at this time. Metabolic- -Currently stable -Monitor renal function daily Alimentary- -Clear liquid diet, as per GI -Nothing by mouth after midnight -Repeat upper endoscopy and colonoscopy in the a.m. as per GI. -Inform GI, if active GI bleeding or hemodynamic instability -Protonix drip could be converted to twice a day in the am -Aspiration precautions -Oncololgy consult, as per GI. -Follow liver chemistries, and coag panel daily. -Management of liver mets as per Oncology Housekeeping -DVT prophylaxis-ALPS -GI prophylaxis-Protonix ICU checklist -IV/peripheral line - 11/26/17 -Arterial line- none -Dennis cath-none -Rectal tube-none -Central line-none -Ventilator- none -Pressors-none Consults: 1. GI- Dr. Nascimento Problem List: 1. Upper GI bleed 2. Metastatic cancer to liver Consult Acknowledgment - Thank you for your consult request. Chalino Chao MD 11/27/17 1225: Assessment/Plan CRCU Other Findings/Comments: Chalino Oden M.D. have examined this patient, reviewed available EMR data, personally reviewed images, discussed with resident/PA/FOURDRINIER TENDER, discussed management plan with housestaff and nursing staff, discussed managment plan all of healthcare providers, discussed management plan with patient and/or family, agreed with resident/PA/FOURDRINIER TENDER. The past history and parts of the chart have been autopopulated. Impression 87-year-old woman * Acute blood loss anemia/hematemesis upper GI bleed source most likely secondary to Steffi-Lomeli tear/esophagitis * Recent diagnosis by liver biopsy of adenocarcinoma likely suggestive of colon primary * COPD with mild exacerbation Plan -Extensive discussion was held with the family patient in house staff at bedside. Her CODE STATUS was discussed in detail and will be continued to be readdressed. We discussed the definition of goals of care including DNR status. Patient is reluctant to pursue any aggressive measures such as any surgical procedures and even possibly colonoscopy. She is also unclear whether she'll pursue chemotherapy once she reviews this with her oncologist. -And meantime she is stabilized without any active bleeding monitor her CBC and hemodynamics -Reduce on Solu-Medrol to 40 mg every 12 hours and will have a quick taper -TRC/Nebs DVT prophylaxis with ALPS TTS 45 min Consult Acknowledgment - Thank you for your consult request.
[2017-11-27 08:00] VITALS: BP 130/72
[2017-11-27 08:30] LABS: ABSOLUTE BASOPHIL COUNT 0 /CUMM (0.0-0.2); ABSOLUTE EOSINOPHIL COUNT 0 /CUMM (0.0-0.7); ABSOLUTE GRANULOCYTE CT 10.7 /CUMM (1.4-6.5); ABSOLUTE LYMPH COUNT 0.4 /CUMM (1.2-3.4); ABSOLUTE MONOCYTE COUNT 0 /CUMM (0.10-0.60); BASOPHIL % 0 % (0.0-2.0); EOSINOPHIL % 0.1 % (0-5); HEMATOCRIT 25.6 % (37-47); MEAN CORPUSCULAR HGB 28.3 PG (27.0-31.0); MEAN CORPUSCULAR HGB CONC 33.2 G/DL (33.0-37.0); MEAN PLATELET VOLUME 9.4 FL (7.4-10.4); RBC DISTRIBUTION WIDTH 14.3 % (11.5-14.5); RED BLOOD CELL CT 3.01 /CUMM (4.20-5.40); WHITE BLOOD CELL COUNT 11.2 /CUMM (4.8-10.8)
[2017-11-27 09:19] LABS: GRANULOCYTE % 95.8 % (42.2-75.2); PLATELET COUNT 181 /CUMM (130-400)
--- NOTE | 2017-11-27 14:11 | PN- Gastroenterology ---
Assessment/Plan GI Assessment/Recommendations: ASSESSMENT: 1. Metastatic Disease to Liver 2. Hematemesis -- none further 3. Acute on Chronic Blood Loss Anemia 4. Abnormal PET Scan 5. Elevated CEA I've spoken with Dr. Estrada this morning. He reports that PET scan shows increased activity in the colon. I have reviewed the PET scan and there is some mild activity in the cecum. There is no clear abnormality on CT or MRI. I have discussed with Ms. Azul's son and daughter last night that she did not have a complete colonoscopy in March given the presence of ischemic colitis and severe diverticulosis. I discussed with them repeat EGD and colonoscopy. Given that there was undigested food and thick coffee ground material which may have limited inspection of the upper GI tract that the EGD should be repeated. I've explained to them that even though they are interested in palliation and not sure how aggressive they want to be with regard to metastatic disease to the liver, it would help develop a treatment plan for Ms. Azul. Further I discussed with them that should she have a lesion that appears to be near obstructing she may benefit from colonic diversion. I've explained to them that this is not a curative surgical procedure but one that would make Ms. Azul more comfortable. All ?s answered. RECOMMENDATIONS: 1. EGD and Colonoscopy tomorrow 2. Continue Serial H/H 3. Continue IV PPI 4. Consult oncology 5. Palliative Care consult 6. Clear liquid diet today 7. 2 liters of Golytely to be given at 5 pm today 8. 2 liter os Golytely to be given at 5 am Monday Subjective Subjective: Patient denies further nausea vomiting or abdominal pain. She has had no fever or shaking chills and denies shortness of breath. Objective Vital Signs and I&Os Vital Signs Date Time Temp Pulse Resp B/P B/P Pulse O2 O2 Flow FiO2 Mean Ox Delivery Rate 11/27 1200 96 Nasal 2.0L Cannula 11/27 1100 Nasal Cannula 11/27 0859 97 Nasal 2.0L Cannula 11/27 08 96 Nasal 2.0L Cannula 11/27 08 98.0 90 26 130/72 96 Nasal 2.0L Cannula 11/27 0400 98 Nasal 2.0L Cannula 11/27 0035 97.9 107 20 135/74 99 Nasal 10L Cannula 11/27 0027 97.8 105 20 130/60 99 Nasal 10L Cannula 11/26 2341 95 Nasal 10L Cannula 11/26 2339 102 20 153/73 98 Nasal 10L Cannula 11/26 2323 107 20 118/56 91 Nasal 10L Cannula 11/26 2310 114 44 149/67 92 Nasal 6.0L Cannula 11/26 2305 116 149/72 11/26 2300 117 147/72 91 Nasal 6.0L Cannula 11/268 96.8 128 48 158/76 95 Nasal 6.0L Cannula Intake & Output 11/27 1600 11/27 0400 11/26 1600 11/26 0400 11/25 1600 11/25 0400 Intake Total 1291 1000 Output Total 500 200 Balance 791 800 Intake, IV 1291 1000 Output, 200 Emesis Output, Urine 500 Patient 177 lb Weight Weight Bed scale Measurement Method Physical Exam General Appearance: well developed/nourished, no apparent distress, alert, awake Cardiovascular: regular rate/rhythm Abdomen: normal bowel sounds, soft, non-tender Neurologic/Psychiatric: awake, alert, oriented x 3 Skin: normal color, warm/dry Current Medications: Current Medications Sig/Narcisa Start time Last Medication Dose Route Stop Time Status Admin Acetaminophen 1,000 MG Q8P PRN 11/27 0045 AC N/A 1 UNIT IV Albuterol Sulfate 3 ML TID 11/27 09 AC 11/27 INH 1328 Ampicillin Sodium/ 3,000 MG Q6H 11/27 0900 AC 11/27 Sulbactam Sodium IV 0827 Sodium Chloride 100 ML Ampicillin Sodium/ 3,000 MG Q6H 11/27 0100 DC 11/27 Sulbactam Sodium IV 0324 Sodium Chloride 100 ML Budesonide/ 2 PUF BID 11/27 09 AC 11/27 Formoterol Fumarate INH 0829 Chlorhexidine 1 GM .STK-MED ONE 11/27 0735 DC Gluconate TOP 11/27 0736 Dextrose/Sodium 1,000 ML .Q8H 11/27 0015 DC 11/27 Chloride IV 11/27 0814 0254 Duloxetine HCl 60 MG QPM 11/27 2100 AC PO Duloxetine HCl 30 MG QAM 11/27 0900 AC 11/27 PO 0828 Gabapentin 100 MG TID 11/27 0900 AC 11/27 PO 0828 Methylprednisolone 40 MG Q8 11/27 1400 DC IV Methylprednisolone 40 MG Q12 11/27 0930 AC 11/27 IV 1208 Methylprednisolone 40 MG Q8 11/27 0600 DC IV Methylprednisolone 125 MG ONCE ONE 11/27 0230 DC 11/27 IV 11/27 0231 0324 Morphine Sulfate 2 MG Q8P PRN 11/27 0015 DC IV Ondansetron HCl 4 MG Q6P PRN 11/27 0015 AC IV Pantoprazole Sodium 40 MG .STK-MED ONE 11/27 0102 DC IV 11/27 0103 Pantoprazole Sodium 0 .STK-MED ONE 11/26 2338 DC IV Pantoprazole Sodium 40 MG Q5H 11/26 2315 AC 11/27 Sodium Chloride 100 ML IV 1000 Pantoprazole Sodium 0 .STK-MED ONE 11/26 2304 DC IV Pantoprazole Sodium 80 MG ONCE ONE 11/260 DC 11/26 IV 11/26 2301 2314 Sodium Chloride 1,000 ML BOLUS ONE 11/26 2299 DC 11/26 IV 11/26 2359 2314 Tiotropium Voca 1 PUF DAILY 11/27 09 AC 11/27 INH 0828 Results Pertinent Lab Results: Laboratory Tests 11/27 11/27 11/27 0914 0700 0236 Chemistry Sodium (137 - 145 mmol/L) 135 L Potassium (3.5 - 5.1 mmol/L) 4.3 Chloride (98 - 107 mmol/L) 99 Carbon Dioxide (22 - 30 mmol/L) 28 Anion Gap (5 - 16) 8 BUN (7 - 17 mg/dL) 19 H Creatinine (0.5 - 1.0 mg/dL) 1.0 Estimated GFR (>60 ml/min) 53 L Glucose (65 - 99 mg/dL) 151 H Lactic Acid (0.7 - 2.1 mmol/L) 1.6 2.0 Calcium (8.4 - 10.2 mg/dL) 8.2 L Phosphorus (2.5 - 4.5 mg/dL) 3.9 Magnesium (1.6 - 2.3 mg/dL) 2.0 Total Bilirubin (0.2 - 1.3 mg/dL) 1.0 AST (14 - 36 U/L) 337 H ALT (9 - 52 U/L) 77 H Troponin I (< 0.11 ng/ml) < 0.01 Albumin (3.5 - 5.0 g/dL) 2.9 L Hematology CBC w Diff Cancelled NO MAN DIFF REQ WBC (4.8 - 10.8 /CUMM) Cancelled 11.2 H RBC (4.20 - 5.40 /CUMM) Cancelled 3.01 L Hgb (12.0 - 16.0 G/DL) Cancelled 8.5 L Hct (37 - 47 %) Cancelled 25.6 L MCV (81.0 - 99.0 FL) Cancelled 85.0 MCH (27.0 - 31.0 PG) Cancelled 28.3 MCHC (33.0 - 37.0 G/DL) Cancelled 33.2 RDW (11.5 - 14.5 %) Cancelled 14.3 Plt Count (130 - 400 /CUMM) Cancelled 181 MPV (7.4 - 10.4 FL) Cancelled 9.4 Gran % (42.2 - 75.2 %) 95.8 H Lymphocytes % (20.5 - 51.1 %) 3.9 L Monocytes % (1.7 - 9.3 %) 0.2 L Eosinophils % (0 - 5 %) 0.1 Basophils % (0.0 - 2.0 %) 0 Absolute Granulocytes (1.4 - 6.5 /CUMM) 10.7 H Absolute Lymphocytes (1.2 - 3.4 /CUMM) 0.4 L Absolute Monocytes (0.10 - 0.60 /CUMM) 0 L Absolute Eosinophils (0.0 - 0.7 /CUMM) 0 Absolute Basophils (0.0 - 0.2 /CUMM) 0 11/27 11/27 0236 0230 Chemistry Sodium (137 - 145 mmol/L) 135 L Potassium (3.5 - 5.1 mmol/L) 4.3 Chloride (98 - 107 mmol/L) 98 Carbon Dioxide (22 - 30 mmol/L) 28 Anion Gap (5 - 16) 9 BUN (7 - 17 mg/dL) 20 H Creatinine (0.5 - 1.0 mg/dL) 1.0 Estimated GFR (>60 ml/min) 53 L Glucose (65 - 99 mg/dL) 130 H Calcium (8.4 - 10.2 mg/dL) 7.9 L Phosphorus (2.5 - 4.5 mg/dL) 4.6 H Magnesium (1.6 - 2.3 mg/dL) 1.9 Total Bilirubin (0.2 - 1.3 mg/dL) 0.8 AST (14 - 36 U/L) 179 H ALT (9 - 52 U/L) 48 Albumin (3.5 - 5.0 g/dL) 2.6 L Hematology CBC w Diff NO MAN DIFF REQ WBC (4.8 - 10.8 /CUMM) 13.8 H RBC (4.20 - 5.40 /CUMM) 2.92 L Hgb (12.0 - 16.0 G/DL) 8.1 L Hct (37 - 47 %) 25.1 L MCV (81.0 - 99.0 FL) 85.8 MCH (27.0 - 31.0 PG) 27.6 MCHC (33.0 - 37.0 G/DL) 32.1 L RDW (11.5 - 14.5 %) 14.7 H Plt Count (130 - 400 /CUMM) 213 MPV (7.4 - 10.4 FL) 8.5 Gran % (42.2 - 75.2 %) 80.6 H Lymphocytes % (20.5 - 51.1 %) 8.9 L Monocytes % (1.7 - 9.3 %) 9.6 H Eosinophils % (0 - 5 %) 0.7 Basophils % (0.0 - 2.0 %) 0.2 Absolute Granulocytes (1.4 - 6.5 /CUMM) 11.1 H Absolute Lymphocytes (1.2 - 3.4 /CUMM) 1.2 Absolute Monocytes (0.10 - 0.60 /CUMM) 1.3 H Absolute Eosinophils (0.0 - 0.7 /CUMM) 0.1 Absolute Basophils (0.0 - 0.2 /CUMM) 0 Urines Urinalysis LIGHT H Urine Color (YEL,AMB,STR) YEL Urine Clarity (CLEAR) HAZY H Urine pH (5.0 - 8.0) 5.5 Ur Specific [place] (1.001 - 1.035) >= 1.030 Urine Protein (NEG,<30 MG/DL) 30 H Urine Ketones (NEG) NEG Urine Nitrite (NEG) NEG Urine Bilirubin (NEG) NEG Urine Urobilinogen (0.1 - 1.0 EU/dl) 1.0 Ur Leukocyte Esterase (NEG) SMALL H Ur Microscopic SEDIMENT EXAMINED Urine WBC (0 - 2 /HPF) 15-25 H Ur Epithelial Cells (NONE,FEW) MOD H Urine Bacteria (NEG/NONE) MOD H Hyaline Casts (0/LPF) FEW H Urine Hemoglobin (NEG) NEG Urine Glucose (N MG/DL) NEG 11/26 11/26 2303 2303 Chemistry Sodium (137 - 145 mmol/L) 134 L Potassium (3.5 - 5.1 mmol/L) 4.2 Chloride (98 - 107 mmol/L) 92 L Carbon Dioxide (22 - 30 mmol/L) 29 Anion Gap (5 - 16) 13 BUN (7 - 17 mg/dL) 21 H Creatinine (0.5 - 1.0 mg/dL) 1.2 H Estimated GFR (>60 ml/min) 43 L BUN/Creatinine Ratio (7 - 25 %) 17.5 Glucose (65 - 99 mg/dL) 164 H Lactic Acid (0.7 - 2.1 mmol/L) 4.4 H Calcium (8.4 - 10.2 mg/dL) 9.1 Phosphorus (2.5 - 4.5 mg/dL) 5.3 H Magnesium (1.6 - 2.3 mg/dL) 2.2 Total Bilirubin (0.2 - 1.3 mg/dL) 0.9 Direct Bilirubin (< 0.4 mg/dL) 0.7 H AST (14 - 36 U/L) 196 H ALT (9 - 52 U/L) 51 Alkaline Phosphatase (<127 U/L) 290 H Troponin I (< 0.11 ng/ml) < 0.01 Total Protein (6.3 - 8.2 g/dL) 6.4 Albumin (3.5 - 5.0 g/dL) 3.3 L Amylase (30 - 110 U/L) 47 Lipase (23 - 300 U/L) 131 TSH (0.270 - 4.200 uIU/mL) 2.580 Free T4 (0.85 - 1.93 ng/dL) 1.48 Coagulation PT (9.4 - 12.5 SEC) 11.8 INR (0.90 - 1.19) 1.08 APTT (25 - 37 SEC) 23 L Hematology CBC w Diff MAN DIFF ORDERED WBC (4.8 - 10.8 /CUMM) 23.8 H RBC (4.20 - 5.40 /CUMM) 3.63 L Hgb (12.0 - 16.0 G/DL) 9.9 L Hct (37 - 47 %) 31.4 L MCV (81.0 - 99.0 FL) 86.7 MCH (27.0 - 31.0 PG) 27.4 MCHC (33.0 - 37.0 G/DL) 31.7 L RDW (11.5 - 14.5 %) 14.6 H Plt Count (130 - 400 /CUMM) 312 MPV (7.4 - 10.4 FL) 8.5 Gran % (42.2 - 75.2 %) 59.9 Lymphocytes % (20.5 - 51.1 %) 26.6 Monocytes % (1.7 - 9.3 %) 11.3 H Eosinophils % (0 - 5 %) 2.0 Basophils % (0.0 - 2.0 %) 0.2 Absolute Granulocytes (1.4 - 6.5 /CUMM) 14.2 H Segmented Neutrophils (42.2 - 75.2 %) 53 Band Neutrophils (0.0 - 5.0 %) 2 Absolute Lymphocytes (1.2 - 3.4 /CUMM) 6.3 H Lymphocytes (20.5 - 51.1 %) 25 Monocytes (1.7 - 9.3 %) 17 H Absolute Monocytes (0.10 - 0.60 /CUMM) 2.7 H Eosinophils (0 - 5.0 %) 3 Absolute Eosinophils (0.0 - 0.7 /CUMM) 0.5 Absolute Basophils (0.0 - 0.2 /CUMM) 0.1 Platelet Estimate (ADEQUATE) VERIFIED BY SMEAR Normocytic RBCs VERIFIED Normochromic RBCs VERIFIED Other Body Source Fld Total RBCs Counted (%) 100
[2017-11-27 16:00] VITALS: BP 162/80
[2017-11-27 19:18] LABS: ABSOLUTE BASOPHIL COUNT 0 /CUMM (0.0-0.2); ABSOLUTE EOSINOPHIL COUNT 0 /CUMM (0.0-0.7); ABSOLUTE GRANULOCYTE CT 12.7 /CUMM (1.4-6.5); ABSOLUTE LYMPH COUNT 0.3 /CUMM (1.2-3.4); ABSOLUTE MONOCYTE COUNT 0.5 /CUMM (0.10-0.60); BASOPHIL % 0.2 % (0.0-2.0); EOSINOPHIL % 0 % (0-5); GRANULOCYTE % 93.7 % (42.2-75.2); HEMATOCRIT 25.3 % (37-47); MEAN CORPUSCULAR HGB CONC 32.7 G/DL (33.0-37.0); MEAN CORPUSCULAR VOLUME 85.9 FL (81.0-99.0); MEAN PLATELET VOLUME 9.3 FL (7.4-10.4); PLATELET COUNT 198 /CUMM (130-400); RBC DISTRIBUTION WIDTH 14.9 % (11.5-14.5); RED BLOOD CELL CT 2.94 /CUMM (4.20-5.40); WHITE BLOOD CELL COUNT 13.6 /CUMM (4.8-10.8)
[2017-11-28] VITALS: BP 140/70
[2017-11-28 05:28] LABS: ABSOLUTE BASOPHIL COUNT 0 /CUMM (0.0-0.2); ABSOLUTE EOSINOPHIL COUNT 0 /CUMM (0.0-0.7); ABSOLUTE LYMPH COUNT 0.6 /CUMM (1.2-3.4); EOSINOPHIL % 0 % (0-5)
[2017-11-28 05:34] LABS: ABSOLUTE GRANULOCYTE CT 13.1 /CUMM (1.4-6.5); ABSOLUTE MONOCYTE COUNT 1.4 /CUMM (0.10-0.60); BASOPHIL % 0 % (0.0-2.0); GRANULOCYTE % 87.1 % (42.2-75.2); HEMATOCRIT 22.3 % (37-47); MEAN CORPUSCULAR HGB 27.5 PG (27.0-31.0); MEAN CORPUSCULAR HGB CONC 32.3 G/DL (33.0-37.0); MEAN CORPUSCULAR VOLUME 85.1 FL (81.0-99.0); MEAN PLATELET VOLUME 8.7 FL (7.4-10.4); PLATELET COUNT 192 /CUMM (130-400); RBC DISTRIBUTION WIDTH 14.7 % (11.5-14.5); RED BLOOD CELL CT 2.62 /CUMM (4.20-5.40); WHITE BLOOD CELL COUNT 15.1 /CUMM (4.8-10.8)
--- NOTE | 2017-11-28 05:39 | PN- Resident CRCU ---
Alon Rodriguez 11/28/17 0536: Subjective HPI/CRCU Issues: Hematemesis She was comfortable this morning. Did not have any new concerns. No chest pain , shortness of breath. She complained of mild streaky blood in the sputum sample. She did not have any large bowel movement with blood. No further hematemesis were noted. There was a plan for an upper endoscopy and colonoscopy as per the GI.she was prepared overnight. Reached out to oncologist, Dr. Adelfo Suazo discussed with the family about the results. MAXIMUM TEMPERATURE 98.2 Pulse rate 86-102 Respiration 26-29 Blood pressure 145-159/72-114. Input 4397, output 795. Oxygen 94% on 2 L nasal cannula. Objective Vital Signs & I&O Last 8 Hrs of Vitals and I&O: Vital Signs Date Time Temp Pulse Resp B/P B/P Pulse O2 O2 Flow FiO2 Mean Ox Delivery Rate 11/28 0000 98 Nasal 2.0L Cannula 11/28 0000 99.3 96 30 140/70 98 Nasal 2.0L Cannula 11/27 2144 103 186/87 11/27 2000 97 Nasal 2.0L Cannula 11/27 1944 96 Nasal 2.0L Cannula 11/27 1600 96 Nasal 2.0L Cannula 11/27 1600 98.2 94 29 162/80 98 Nasal 2.0L Cannula 11/27 1200 96 Nasal 2.0L Cannula 11/27 1100 Nasal Cannula 11/27 0859 97 Nasal 2.0L Cannula 11/27 0800 96 Nasal 2.0L Cannula 11/27 0800 98.0 90 26 130/72 96 Nasal 2.0L Cannula Intake & Output 11/28 0800 11/28 0000 11/27 1600 Intake Total 2802 1227 Output Total 210 275 Balance 2592 952 Intake, IV 302 927 Intake, Oral 2500 300 Number 2 1 Bowel Movements Output, Urine 210 275 Exam General Appearance: alert Other Physical Findings: General Exam: AAOx3, palor, No acute distress, Skin: No rashes, no breakdown; HEENT: PERRLA, EOMI;Neck: Supple, No JVDl; No cervical lymphadenopathy;CVS: Reg Rate, Normal S1,S2, No MGR; Resp: Normal air entry, bilateral ronchi and rales; Abdomen: Soft, No tenderness, Normal Bowel Sounds;Neuro: Normal Speech, Strength 5/5 b/l x 4 extremities, Sensation intact, CN III-XII NL, Reflexes 2+; Extremities: No cyanosis, no pedal edema Current Medications: Current Medications Sig/Narcisa Start time Last Medication Dose Route Stop Time Status Admin Acetaminophen 1,000 MG Q8P PRN 11/27 0045 DC N/A 1 UNIT IV Albuterol Sulfate 3 ML TID 11/27 09 AC 11/28 INH 2009 Ampicillin Sodium/ 3,000 MG Q6H 11/27 09 AC 11/29 Sulbactam Sodium IV 0327 Sodium Chloride 100 ML Budesonide/ 2 PUF BID 11/27 09 AC 11/28 Formoterol Fumarate INH 2210 Chlorhexidine 1 GM .STK-MED ONE 11/28 1419 DC Gluconate TOP 11/28 1420 Duloxetine HCl 60 MG QPM 11/27 2100 AC 11/28 PO 2211 Duloxetine HCl 30 MG QAM 11/27 0900 AC 11/28 PO 0823 Gabapentin 100 MG TID 11/27 09 AC 11/28 PO 2210 Magnesium Sulfate 1 GM ONCE ONE 11/28 0945 DC 11/28 Dextrose/Water 100 ML IV 11/28 1344 1013 Methylprednisolone 40 MG DAILY 11/29 09 AC IV Methylprednisolone 40 MG Q12 11/27 0930 DC 11/28 IV 2210 Ondansetron HCl 4 MG .STK-MED ONE 11/28 0815 DC IM 11/28 0816 Ondansetron HCl 4 MG Q6P PRN 11/27 0015 AC 11/28 IV 0825 Pantoprazole Sodium 40 MG BID 11/28 2100 AC 11/28 IV 2211 Pantoprazole Sodium 40 MG Q5H 11/26 2315 DC 11/28 Sodium Chloride 100 ML IV 1358 Polyethylene Glycol 0.5 GAL 0500 11/28 0500 DC 11/28 PO 0500 Polyethylene Glycol 0.5 GAL 5PM 11/27 1700 DC 11/27 PO 1730 Tiotropium [place] 1 PUF DAILY 11/27 09 AC 11/28 INH 0825 Impression/Plan Impression/Problem List Impression: Mr Camargo is a 87 year old woman w/ a PMHx of COPD (1.5 L oxygen), hypertension, recent diagnosis of ischemic colitis and severe diverticulosis (), who was evaluated recently for abnormal liver enzymes and was found to have multiple liver metastases likely primary source-Colon, who eventually got evaluated by Dr. Suazo (hematology/oncology), and underwent liver biopsy which showed moderately differentiated adenocarcinoma (waiting for final IHC stain analysis) came to the hospital with a chief concern of hematemesis after retching of unclear etiology with possible explanations such as Steffi-Lomeli tear, esophagitis. Pertinent lab findings WBC 23.8 (11/26)-->11.2 (11/27)--> 15.1 Hemoglobin 9.9 (11/26)-->8.5 (11/27)--> 7.2(11/28) Platelets 312-->192(11/28) Electrolytes: Sodium 134, potassium 4.2 Renal function: BUN 21, creatinine 1.2(11/26)-->1.0(11/27)--> INR 1.08. Lactic acid 4.4--2.0--1.6 AST 196(11/26)-->337(11/27)--> 663(11/28) ALT 51-->77--> 123(11/28) Total bilirubin 0.9 Alkaline phosphatase 290. EGD performed by Dr. Nascimento 11/27/2017. CT abdomen 10/26/17 Fluorine-18 FDG PET/CT Scan whole body 11/08/2017 Etiology in her case, is likely due to either an acute tear or esophagitis contributing to hematemesis. She also has liver metastases, this most likely from colon cancer which would make her have abnormal coagulated profile given decreased anti-coagulants such as protein C, protein S etc. She would definetly need evaluation of EGD and possible colonoscopy. In regards to her worsening cough, this could be due to aspiration pneumonitis secondary to hematemesis for which she is currently on unasyn emperically awaiting cultures. Problem list : 1. Hematemesis 2. hisotry of COPD 3. Liver mets likely primary Colon 4. History of hypertension 5. Stage 3 CKD Plan: Respiratory- Aspiration pneumonitis and pneumonia in the differential. She also has COPD for which she was given solumedrol which could be continued. - Continue Solu-Medrol IV, but would decrease the frequency. - Continue Unasyn 3gm q6, pending cultures Infectious- - Leukocytosis improving. -Continue antibiotics for now. -Monitor for any fever. Hematology- -Hemoglobin 7.2. 1 unit of PRBC. Recheck CBC in the pm. -CBC every 12 hours -Transfuse, if there is a positive drop in H&H. -Monitor hemodynamics closely. -Avoid antiplatelet agents at this time. Metabolic- -Currently stable -Monitor renal function daily Alimentary- -Repeat upper endoscopy and colonoscopy today. -Inform GI, if active GI bleeding or hemodynamic instability -Protonix drip could be converted to twice a day after the procedure. -Aspiration precautions -Follow liver chemistries, and coag panel daily. -Management of liver mets as per Oncology Housekeeping -DVT prophylaxis-ALPS -GI prophylaxis-Protonix ICU checklist -IV/peripheral line - 11/26/17 -Arterial line- none -Dennis cath-none -Rectal tube-none -Central line-none -Ventilator- none -Pressors-none Consults: 1. GI- Dr. Nascimento Problem List: 1. Upper GI bleed 2. Metastatic cancer to liver Pain Ratin Tomorrow's Labs & Rationales: cbc bep inr lft Plan DVT/Prophylaxis: Chalino Aquino MD 11/28/17 1136: Attending MD Review Statement Attending Sign Off Attending Cosign Statement: I have: examined this patient, reviewed avalbl EMR data, personally reviewd images, discussd w/resident/PA[facility], discussed mgmt plan w/henrietta, discussed mgmt plan w/CM, discussed mgmt plan w/pt, agreed w/resident/[facility], amended to note. Other Findings: IChalino M.D. have examined this patient, reviewed available EMR data, personally reviewed images, discussed with resident/PA[facility], discussed management plan with housestaff and nursing staff, discussed managment plan all of healthcare providers, discussed management plan with patient and/or family, agreed with resident/PA/[facility]. The past history and parts of the chart have been autopopulated. Impression 87-year-old woman * Acute blood loss anemia/hematemesis upper GI bleed source most likely secondary to Steffi-Lomeli tear/esophagitis * Recent diagnosis by liver biopsy of adenocarcinoma likely suggestive of colon primary * COPD with mild exacerbation Plan -egd/colonoscopy today -blood transfusion -continue steroids for now -no evidence of aspiration -f/u oncology recs -TRC/Nebs DVT prophylaxis with ALPS TTS 35 min
--- NOTE | 2017-11-28 06:54 | Cons- Oncology ---
General Information and HPI Consulting Request Date of Consult: 11/28/17 Requested By: Chalino Chao MD History of Present Illness: 87-year-old woman admitted to the ICU with upper GI bleeding. I recently met the patient as an outpatient workup presumed metastatic cancer. Patient was noted to have abnormalities in her liver. Subsequent PET scan consistent with hepatic metastatic disease with a focus of activity in her colon. A previous colonoscopy demonstrated ischemic colitis. The patient is status post a liver biopsy. Currently patient feels improved. She denied active nausea vomiting or hematemesis. An EGD performed yesterday but was inconclusive. A significant volume of blood was observed. Allergies/Medications Allergies: Coded Allergies: Penicillins (VAGINAL ITCH 06/11/16) Home Med List: Duloxetine HCl (Cymbalta) 60 MG CAPSULE.DR 1 CAP PO QPM DEPRESSION (Reported) Duloxetine Hydrochloride (Cymbalta) 30 MG CAPSULE.DR 1 CAP PO QAM DEPRESSION (Reported) Ferrous Sulfate (IRON) 325 MG (65 MG IRON) TABLET 1 TAB PO DAILY SUPPLEMENT ( Reported) Fluticasone/Vilanterol (Breo Ellipta 100-25 Mcg INH) 100 MCG-25 MCG/DOSE BLST.W.DEV 1 PUFF INH QPM RESP. (Reported) Gabapentin (Neurontin) 100 MG CAPSULE 1 CAP PO TID ANXIETY (Reported) Ipratropium/Albuterol Sulfate (Iprat-Albut 0.5-3(2.5) MG/3 Ml) 0.5 MG-3 MG (2.5 MG BASE)/3 ML AMPUL.NEB 1 VIAL INH TID PRN SOB (Reported) Omeprazole 20 MG CAPSULE.DR 1 CAP PO BID peptic ulcer .. Current Medications: Current Medications Sig/Narcisa Start time Last Medication Dose Route Stop Time Status Admin Acetaminophen 1,000 MG Q8P PRN 11/27 0045 AC N/A 1 UNIT IV Albuterol Sulfate 3 ML TID 11/27 899 AC 11/27 INH 1941 Ampicillin Sodium/ 3,000 MG Q6H 11/27 899 AC 11/28 Sulbactam Sodium IV 0241 Sodium Chloride 100 ML Budesonide/ 2 PUF BID 11/27 899 AC 11/27 Formoterol Fumarate INH 211 Chlorhexidine 1 GM .STK-MED ONE 11/27 0735 DC Gluconate TOP 11/27 0736 Dextrose/Sodium 1,000 ML .Q8H 11/27 0015 DC 11/27 Chloride IV 11/27 0814 0254 Duloxetine HCl 60 MG QPM 11/27 2100 AC 11/27 PO 211 Duloxetine HCl 30 MG QAM 11/27 0900 AC 11/27 PO 0828 Gabapentin 100 MG TID 11/27 0900 AC 11/27 PO 2111 Lisinopril 10 MG ONCE ONE 11/27 2100 DC 11/27 PO 11/27 2101 2144 Methylprednisolone 40 MG Q8 11/27 1400 DC IV Methylprednisolone 40 MG Q12 11/27 0930 AC 11/27 IV 211 Ondansetron HCl 4 MG Q6P PRN 11/27 0015 AC IV Pantoprazole Sodium 40 MG Q5H 11/26 2315 AC 11/28 Sodium Chloride 100 ML IV 0240 Polyethylene Glycol 0.5 GAL 0500 11/28 0500 AC 11/28 PO 0500 Polyethylene Glycol 0.5 GAL 5PM 11/27 1700 AC 11/27 PO 1730 Tiotropium [place] 1 PUF DAILY 11/27 0900 AC 11/27 INH 0828 Review of Systems Review of Systems: Patient denies headaches or dizziness. Patient denies shortness of breath cough chest pain or hemoptysis. Patient denies dysuria hematuria. She denies bone aches or focal neurologic deficit. Past History Travel History Traveled to [place] past 21 day No Medical History Blood Transfusion Hx: No Neurological: NONE EENT: NONE Cardiovascular: hypertension Respiratory: COPD, ASTHMA Gastrointestinal: GERD, HIATAL HERNIA Hepatic: NONE Renal: NONE Musculoskeletal: NONE Psychiatric: anxiety Endocrine: NONE Blood Disorders: NONE Cancer(s): NONE Surgical History Surgical History: cholecystectomy Family History Relations & Conditions If Any: MOTHER (uterine cancer). FATHER (Heart disease). Psychosocial History Where Do You Live? Home Primary Language: Algerian Smoking Status: Former Smoker Functional Ability ADLs Independent: dressing, eating, toileting, bathing. Ambulation: independent IADLs Independent: shopping, housework, finances, food prep, telephone, transportation , medication admin. Exam & Diagnostic Data Vital Signs and I&O Vital Signs Date Time Temp Pulse Resp B/P B/P Pulse O2 O2 Flow FiO2 Mean Ox Delivery Rate 11/28 0400 94 Nasal 2.0L Cannula 11/28 0000 98 Nasal 2.0L Cannula 11/28 0000 99.3 96 30 140/70 98 Nasal 2.0L Cannula 11/27 2144 103 186/87 11/28 1999 97 Nasal 2.0L Cannula 11/27 1944 96 Nasal 2.0L Cannula 11/27 1600 96 Nasal 2.0L Cannula 11/27 1600 98.2 94 29 162/80 98 Nasal 2.0L Cannula 11/27 1200 96 Nasal 2.0L Cannula 11/27 1100 Nasal Cannula 11/27 0859 97 Nasal 2.0L Cannula 11/27 0800 96 Nasal 2.0L Cannula 11/27 0800 98.0 90 26 130/72 96 Nasal 2.0L Cannula Intake & Output 11/28 0800 11/28 0000 11/27 1600 Intake Total 368 2802 1227 Output Total 300 210 275 Balance 68 2592 952 Intake, IV 268 302 927 Intake, Oral 100 2500 300 Number 6 2 1 Bowel Movements Output, Urine 300 210 275 Patient 186 lb Weight Weight Bed scale Measurement Method Gen.: in NAD ENT: Sclera anicteric Chest: Normal respiratory effort, decreased breath sounds Cor: RRR, no extra sounds Abdomen: Soft, bowel sounds present, no tenderness, no rebound Extremities: Without clubbing, cyanosis, or asymmetric edema Neurology: Alert and oriented 3, no gross deficit Last 48 Hours of Lab Results: Laboratory Tests 11/28 11/27 0510 1800 Chemistry Sodium (137 - 145 mmol/L) 136 L Potassium (3.5 - 5.1 mmol/L) 3.6 Chloride (98 - 107 mmol/L) 98 Carbon Dioxide (22 - 30 mmol/L) 29 Anion Gap (5 - 16) 9 BUN (7 - 17 mg/dL) 17 Creatinine (0.5 - 1.0 mg/dL) 0.8 Estimated GFR (>60 ml/min) > 60 Glucose (65 - 99 mg/dL) 134 H Calcium (8.4 - 10.2 mg/dL) 8.0 L Phosphorus (2.5 - 4.5 mg/dL) 3.5 Magnesium (1.6 - 2.3 mg/dL) 1.8 Total Bilirubin (0.2 - 1.3 mg/dL) 0.9 AST (14 - 36 U/L) 663 H ALT (9 - 52 U/L) 123 H Albumin (3.5 - 5.0 g/dL) 2.6 L Hematology CBC w Diff MAN DIFF ORDERED NO MAN DIFF REQ WBC (4.8 - 10.8 /CUMM) 15.1 H 13.6 H RBC (4.20 - 5.40 /CUMM) 2.62 L 2.94 L Hgb (12.0 - 16.0 G/DL) 7.2 *L 8.3 L Hct (37 - 47 %) 22.3 L 25.3 L MCV (81.0 - 99.0 FL) 85.1 85.9 MCH (27.0 - 31.0 PG) 27.5 28.0 MCHC (33.0 - 37.0 G/DL) 32.3 L 32.7 L RDW (11.5 - 14.5 %) 14.7 H 14.9 H Plt Count (130 - 400 /CUMM) 192 198 MPV (7.4 - 10.4 FL) 8.7 9.3 Gran % (42.2 - 75.2 %) 87.1 H 93.7 H Lymphocytes % (20.5 - 51.1 %) 3.7 L 2.3 L Monocytes % (1.7 - 9.3 %) 9.2 3.8 Eosinophils % (0 - 5 %) 0 0 Basophils % (0.0 - 2.0 %) 0 0.2 Absolute Granulocytes (1.4 - 6.5 /CUMM) 13.1 H 12.7 H Segmented Neutrophils (42.2 - 75.2 %) 81 H Band Neutrophils (0.0 - 5.0 %) 10 H Absolute Lymphocytes (1.2 - 3.4 /CUMM) 0.6 L 0.3 L Lymphocytes (20.5 - 51.1 %) 5 L Monocytes (1.7 - 9.3 %) 4 Absolute Monocytes (0.10 - 0.60 /CUMM) 1.4 H 0.5 Absolute Eosinophils (0.0 - 0.7 /CUMM) 0 0 Absolute Basophils (0.0 - 0.2 /CUMM) 0 0 Platelet Estimate (ADEQUATE) ADEQUATE Polychromasia 1+ Basophilic Stippling RARE Stomatocytes 2+ 11/27 11/27 11/27 0914 0700 0236 Chemistry Sodium (137 - 145 mmol/L) 135 L Potassium (3.5 - 5.1 mmol/L) 4.3 Chloride (98 - 107 mmol/L) 99 Carbon Dioxide (22 - 30 mmol/L) 28 Anion Gap (5 - 16) 8 BUN (7 - 17 mg/dL) 19 H Creatinine (0.5 - 1.0 mg/dL) 1.0 Estimated GFR (>60 ml/min) 53 L Glucose (65 - 99 mg/dL) 151 H Lactic Acid (0.7 - 2.1 mmol/L) 1.6 2.0 Calcium (8.4 - 10.2 mg/dL) 8.2 L Phosphorus (2.5 - 4.5 mg/dL) 3.9 Magnesium (1.6 - 2.3 mg/dL) 2.0 Total Bilirubin (0.2 - 1.3 mg/dL) 1.0 AST (14 - 36 U/L) 337 H ALT (9 - 52 U/L) 77 H Troponin I (< 0.11 ng/ml) < 0.01 Albumin (3.5 - 5.0 g/dL) 2.9 L Hematology CBC w Diff Cancelled NO MAN DIFF REQ WBC (4.8 - 10.8 /CUMM) Cancelled 11.2 H RBC (4.20 - 5.40 /CUMM) Cancelled 3.01 L Hgb (12.0 - 16.0 G/DL) Cancelled 8.5 L Hct (37 - 47 %) Cancelled 25.6 L MCV (81.0 - 99.0 FL) Cancelled 85.0 MCH (27.0 - 31.0 PG) Cancelled 28.3 MCHC (33.0 - 37.0 G/DL) Cancelled 33.2 RDW (11.5 - 14.5 %) Cancelled 14.3 Plt Count (130 - 400 /CUMM) Cancelled 181 MPV (7.4 - 10.4 FL) Cancelled 9.4 Gran % (42.2 - 75.2 %) 95.8 H Lymphocytes % (20.5 - 51.1 %) 3.9 L Monocytes % (1.7 - 9.3 %) 0.2 L Eosinophils % (0 - 5 %) 0.1 Basophils % (0.0 - 2.0 %) 0 Absolute Granulocytes (1.4 - 6.5 /CUMM) 10.7 H Absolute Lymphocytes (1.2 - 3.4 /CUMM) 0.4 L Absolute Monocytes (0.10 - 0.60 /CUMM) 0 L Absolute Eosinophils (0.0 - 0.7 /CUMM) 0 Absolute Basophils (0.0 - 0.2 /CUMM) 0 11/27 11/27 0236 0230 Chemistry Sodium (137 - 145 mmol/L) 135 L Potassium (3.5 - 5.1 mmol/L) 4.3 Chloride (98 - 107 mmol/L) 98 Carbon Dioxide (22 - 30 mmol/L) 28 Anion Gap (5 - 16) 9 BUN (7 - 17 mg/dL) 20 H Creatinine (0.5 - 1.0 mg/dL) 1.0 Estimated GFR (>60 ml/min) 53 L Glucose (65 - 99 mg/dL) 130 H Calcium (8.4 - 10.2 mg/dL) 7.9 L Phosphorus (2.5 - 4.5 mg/dL) 4.6 H Magnesium (1.6 - 2.3 mg/dL) 1.9 Total Bilirubin (0.2 - 1.3 mg/dL) 0.8 AST (14 - 36 U/L) 179 H ALT (9 - 52 U/L) 48 Albumin (3.5 - 5.0 g/dL) 2.6 L Hematology CBC w Diff NO MAN DIFF REQ WBC (4.8 - 10.8 /CUMM) 13.8 H RBC (4.20 - 5.40 /CUMM) 2.92 L Hgb (12.0 - 16.0 G/DL) 8.1 L Hct (37 - 47 %) 25.1 L MCV (81.0 - 99.0 FL) 85.8 MCH (27.0 - 31.0 PG) 27.6 MCHC (33.0 - 37.0 G/DL) 32.1 L RDW (11.5 - 14.5 %) 14.7 H Plt Count (130 - 400 /CUMM) 213 MPV (7.4 - 10.4 FL) 8.5 Gran % (42.2 - 75.2 %) 80.6 H Lymphocytes % (20.5 - 51.1 %) 8.9 L Monocytes % (1.7 - 9.3 %) 9.6 H Eosinophils % (0 - 5 %) 0.7 Basophils % (0.0 - 2.0 %) 0.2 Absolute Granulocytes (1.4 - 6.5 /CUMM) 11.1 H Absolute Lymphocytes (1.2 - 3.4 /CUMM) 1.2 Absolute Monocytes (0.10 - 0.60 /CUMM) 1.3 H Absolute Eosinophils (0.0 - 0.7 /CUMM) 0.1 Absolute Basophils (0.0 - 0.2 /CUMM) 0 Urines Urinalysis LIGHT H Urine Color (YEL,AMB,STR) YEL Urine Clarity (CLEAR) HAZY H Urine pH (5.0 - 8.0) 5.5 Ur Specific [place] (1.001 - 1.035) >= 1.030 Urine Protein (NEG,<30 MG/DL) 30 H Urine Ketones (NEG) NEG Urine Nitrite (NEG) NEG Urine Bilirubin (NEG) NEG Urine Urobilinogen (0.1 - 1.0 EU/dl) 1.0 Ur Leukocyte Esterase (NEG) SMALL H Ur Microscopic SEDIMENT EXAMINED Urine WBC (0 - 2 /HPF) 15-25 H Ur Epithelial Cells (NONE,FEW) MOD H Urine Bacteria (NEG/NONE) MOD H Hyaline Casts (0/LPF) FEW H Urine Hemoglobin (NEG) NEG Urine Glucose (N MG/DL) NEG 11/26 11/26 2303 2303 Chemistry Sodium (137 - 145 mmol/L) 134 L Potassium (3.5 - 5.1 mmol/L) 4.2 Chloride (98 - 107 mmol/L) 92 L Carbon Dioxide (22 - 30 mmol/L) 29 Anion Gap (5 - 16) 13 BUN (7 - 17 mg/dL) 21 H Creatinine (0.5 - 1.0 mg/dL) 1.2 H Estimated GFR (>60 ml/min) 43 L BUN/Creatinine Ratio (7 - 25 %) 17.5 Glucose (65 - 99 mg/dL) 164 H Lactic Acid (0.7 - 2.1 mmol/L) 4.4 H Calcium (8.4 - 10.2 mg/dL) 9.1 Phosphorus (2.5 - 4.5 mg/dL) 5.3 H Magnesium (1.6 - 2.3 mg/dL) 2.2 Total Bilirubin (0.2 - 1.3 mg/dL) 0.9 Direct Bilirubin (< 0.4 mg/dL) 0.7 H AST (14 - 36 U/L) 196 H ALT (9 - 52 U/L) 51 Alkaline Phosphatase (<127 U/L) 290 H Troponin I (< 0.11 ng/ml) < 0.01 Total Protein (6.3 - 8.2 g/dL) 6.4 Albumin (3.5 - 5.0 g/dL) 3.3 L Amylase (30 - 110 U/L) 47 Lipase (23 - 300 U/L) 131 TSH (0.270 - 4.200 uIU/mL) 2.580 Free T4 (0.85 - 1.93 ng/dL) 1.48 Coagulation PT (9.4 - 12.5 SEC) 11.8 INR (0.90 - 1.19) 1.08 APTT (25 - 37 SEC) 23 L Hematology CBC w Diff MAN DIFF ORDERED WBC (4.8 - 10.8 /CUMM) 23.8 H RBC (4.20 - 5.40 /CUMM) 3.63 L Hgb (12.0 - 16.0 G/DL) 9.9 L Hct (37 - 47 %) 31.4 L MCV (81.0 - 99.0 FL) 86.7 MCH (27.0 - 31.0 PG) 27.4 MCHC (33.0 - 37.0 G/DL) 31.7 L RDW (11.5 - 14.5 %) 14.6 H Plt Count (130 - 400 /CUMM) 312 MPV (7.4 - 10.4 FL) 8.5 Gran % (42.2 - 75.2 %) 59.9 Lymphocytes % (20.5 - 51.1 %) 26.6 Monocytes % (1.7 - 9.3 %) 11.3 H Eosinophils % (0 - 5 %) 2.0 Basophils % (0.0 - 2.0 %) 0.2 Absolute Granulocytes (1.4 - 6.5 /CUMM) 14.2 H Segmented Neutrophils (42.2 - 75.2 %) 53 Band Neutrophils (0.0 - 5.0 %) 2 Absolute Lymphocytes (1.2 - 3.4 /CUMM) 6.3 H Lymphocytes (20.5 - 51.1 %) 25 Monocytes (1.7 - 9.3 %) 17 H Absolute Monocytes (0.10 - 0.60 /CUMM) 2.7 H Eosinophils (0 - 5.0 %) 3 Absolute Eosinophils (0.0 - 0.7 /CUMM) 0.5 Absolute Basophils (0.0 - 0.2 /CUMM) 0.1 Platelet Estimate (ADEQUATE) VERIFIED BY SMEAR Normocytic RBCs VERIFIED Normochromic RBCs VERIFIED Other Body Source Fld Total RBCs Counted (%) 100 Liver biopsy-adenocarcinoma, immunohistochemical stains are pending [id number] Imaging/Other Studies: Chest x-ray-no active disease Assessment/Plan Assessment: 1. Upper GI bleeding-repeat EGD scheduled for today. This may or may not identify primary malignancy 2. Metastatic adenocarcinoma-colonoscopy will also be performed today.. Ultimately, recommendations for systemic therapy will be made once the etiology of her bleeding is understood and her colonoscopy results are reviewed. I have discussed this with the patient and her family. Recommendations: .. Consult Acknowledgment - Thank you for your consult request.
[2017-11-28 08:00] VITALS: BP 142/84
--- NOTE | 2017-11-28 10:50 | RADIOLOGY REPORT ---
EXAMINATION: XR PORTABLE CHEST CLINICAL INFORMATION: 87-year-old female patient with cough and shortness of breath. Presumptive diagnosis, aspiration pneumonia. Per chart: Liver metastases, unknown primary. COMPARISON: CT of the abdomen and pelvis on 10/26/2017. PET/CT on 11/07/2017. Chest x-ray on 10/26/2017. TECHNIQUE: Portable AP semierect view of the chest was obtained. FINDINGS: The heart remains top normal in size. A moderate size hiatal hernia is present. Lungs are symmetrically aerated and clear showing no sign of consolidation or atelectasis. No pleural effusion is appreciated. Skeletal structures are unremarkable. IMPRESSION: No active pulmonary disease. No indication of aspiration pneumonia.
--- NOTE | 2017-11-28 12:40 | Transfer of Care Summary ---
Hospital Course Course Hospital Course: Ms Camargo is a 87 year old woman w/ a PMHx of COPD (1.5 L oxygen), hypertension, recent diagnosis of ischemic colitis and severe diverticulosis (), who was evaluated recently for abnormal liver enzymes and was found to have multiple liver metastases likely primary source-Colon, who eventually got evaluated by Dr. Suazo (hematology/oncology), and underwent liver biopsy which showed moderately differentiated adenocarcinoma (waiting for final IHC stain analysis) came to the hospital with a chief concern of hematemesis after retching, and excessive coughing. At the time of admission-vitals 96.8, pulse rate 128, blood pressure 158/76, 91% on 6 L oxygen. He underwent an emergent upper endoscopy with findings of LA grade a-B esophagitis and possible Steffi-Lomeli tear. Etiology of this large volume hematemesis was unclear, but hiatal hernia with multiple Jona's lesions could've constipated to hematemesis. She was started on Protonix drip and was monitored on intensive care unit. She was admitted to intensive care unit post EGD, for closer monitoring of hemodynamics. Pertinent lab findings during the stay in the ICU: WBC 23.8 (11/26)-->11.2 (11/27)--> 15.1(11/28)-->15.1(11/29)-->16.4(11/30). Hemoglobin 9.9 (11/26)-->8.5 (11/27)-->7.2(11/28) rec'ed PRBCs-->8.8(11/29)-->8.3( 3). Platelets 312-->192(11/28)-->188(11/29)-->193(11/30) Electrolytes: Sodium 134, potassium 4.2-->3.3(11/30) Renal function: BUN 21, creatinine 1.2(11/26)-->1.0(11/27) INR 1.08. Lactic acid 4.4--2.0--1.6 AST 196(11/26)-->337(11/27)--> 663(11/28)-->417(11/29)-->176(5/3) ALT 51-->77--> 123(5/1)-->104(5/2)-->82(5/3) Total bilirubin 0.9 Alkaline phosphatase 290. EGD performed by Dr. Nascimento 11/27/2017. CT abdomen 10/26/17 Fluorine-18 FDG PET/CT Scan whole body 11/08/2017 Repeat EGD done 11/30/17 ( Detailed reports below ) Etiology in her case, is likely due to either an acute tear or esophagitis contributing to hematemesis. She also has liver metastases, this most likely from colon cancer which would make her have abnormal coagulation profile given decreased anti-coagulants such as protein C, protein S etc. In regards to her worsening cough, this could be due to aspiration pneumonitis secondary to hematemesis for which she is currently on unasyn emperically. Problem list : 1. Hematemesis 2. hisotry of COPD 3. Liver mets likely primary Colon 4. History of hypertension 5. Stage 3 CKD Vitals remained stable while she was in the ICU. She received 1 unit of packed red blood cells, when H&H dropped to 7.2. She did not have any further hematemesis, but had occasional scant hemoptysis which was likely due to post EGD, mechanically causing postpharyngeal irritation. She was started on IV Protonix drip, which was transitioned to by mouth. Repeat endoscopy was done confirming a possible Steffi-Lomeli tear and esophagitis. Dr. Nascimento was consulted for advice. In regards to her increasing oxygen requirements, it was found that she may have had aspiration pneumonitis secondary to chemical aspiration. Lung examination revealed rhonchi and rales, and was empirically started on Solu-Medrol for the treatment of COPD. She was also started on Unasyn empirically, although there was no clear evidence of pneumonia in her case. Leukocytosis was thought to be likely reactive, or in response to steroids. Lower respiratory cultures revealed growth of yeast and gram-negative rods, and Unasyn was continued empirically, pending sensitivity results. Blood cultures remain negative for any abnormal growth. Ins and outs were checked daily. She was recently diagnosed with liver masses, likely metastases from colon; that said, recent colonoscopy did not reveal any abnormal findings such as masses or dysplastic lesions. Liver chemistries were followed closely, which were trending down. Dr. Suazo was consulted for advice, who discussed about following up closely after discharge to plan for suitable systemic chemotherapy. Other medical problems included chronic kidney disease, hypertension. Home dose of lisinopril was resumed after hemodynamics stabilized. DVT prophylaxis- ALPS. #1 Central line- none. #2 Arterial line- none. #3 Dennis catheter- none #4 Rectal tube- none. #5 NG tube- none. #6 IV/peripheral line- present. #7 IV drips- discontinued. #8 Vent settings- none. #9 pressors-none. She is full code. Dr. Chao discussed extensively about the management plan, and discussed about the results of liver biopsy and overall goals of care. Ms Camargo understood the management plan, and wished to follow up closely with Dr. Chao. Consultants: 1. Dr Nascimento, GI 2. Dr. Chao, Pulm 3. Dr. Estrada, Hem Onc To follow up on the floor- 1. Follow up [facility] cultures and sensitivity, and continue abx for a total of 5 days. Last day 12/01/17 2. Dc steroids on 12/01/17 3. Have the pt follow up with Dr. Estrada. 4. Patient to be discharged with prescription for Prevacid solute tabs 30 mg by mouth twice a day. Pertinent Lab Results: Cxr 11/26/17 Lung volumes are symmetric. No focal consolidation is seen. Lung nodules seen on recent PET CT are not as well delineated radiographically. No evidence of pneumothorax, significant pleural effusion, or pulmonary edema. Cardiac size appears at the upper limits of normal. A hiatal hernia is noted. No acute osseous findings are seen. IMPRESSION: No acute findings identified. Hiatal hernia. Procedure Date: 11/27/17 Procedure Type: EGD 1. Esophagitis with Linear Erosions 2. ? Superficial Steffi Lomeli Tear 3. Large Hiatal hernia with Jona's Erosions 4. Atrophic Gastritis 5. Normal Small Bowel, Major Papilla normal in appearance Impression: 1. LA Grade A-B Esophagitis 2. ? Steffi Lomeli Tear 3. Unclear Etiology of large Volume Hematemesis 4. Large Hiatal Hernia with Jona's Erosions Procedure Date: 11/28/17 Procedure Type: EGD w/biopsy 1. Large hiatal hernia 2. Minimal Jona's erosions 3. Probable Steffi-Lomeli tear without bleeding 4. 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 Linear erosion lower one third of the esophagus Impression: 1. Large hiatal hernia 2. Minimal Jona's erosions 3. Probable Steffi-Lomeli tear without bleeding 4. 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 Linear erosion lower one third of the esophagus Procedure Date: 11/28/17 Procedure Type: incomplete colonoscopy 1. Resume diet 2. Patient is stable from a GI point of view for transfer from ICU to floor 3. Would have palliative care see patient while in hospital 4. Patient's follow-up with Dr. Cherry and Dr. Zafar today as an outpatient 5. Patient to be discharged with prescription for Prevacid solute tabs 30 mg by mouth twice a day. Assessment/Plan: as above
[2017-11-28 13:30] VITALS: BP 118/80
--- NOTE | 2017-11-28 13:45 | Proc Note Endoscopy ---
Endoscopy Procedure Medical History: unchanged Mental Status: alert/oriented Heart/Lung Eval Prior to Sedation: within normal limits Candidate for Sedation? Yes Procedure Date: 11/28/17 Procedure Type: EGD w/biopsy Formula Technician: MD Galindo Deborah E. ASA Classification: III Indications: 1. Hematemesis 2. Acute blood loss anemia Instrument: diagnostic gastroscope Meds Received: MAC Patient's Tolerance: good Complications: none Extent Reached: second part of duodenum Procedure: Note: Informed consent was obtained prior to procedure. Risks and benefits of procedure were discussed with patient. Potential complications discussed included perforation, bleeding, abdominal pain, and adverse reaction to medications. It was explained that iany or all of these complications could result in the need for extended hospitalization, emergency surgery, transfusion of packed red blood cells (with the risk of HIV or hepatitis virus), intubation with mechanical ventilation, and possible need for antibiotics. It was further explained that an existing tumor polyp or mucosal abnormality might not be identified at the time of the procedure thus resulting in a missed opportunity for early diagnosis and treatment of a gastrointestinal malignancy or disease with possible interval development of a gastrointestinal cancer or other disease with possible worsening of clinical condition in the interval between endoscopies. It was also discussed that complications are not limited to those listed above. Possible alternatives to endoscopic treatment or evaluation were discussed. All questions were answered. Continuous EKG and blood pressure monitors were attached. Supplemental oxygen was provided with O2 Sat monitoring. Patient was placed in the left lateral decubitus position. A surgical timeout was performed. All persons in the room were identified. All concerns were expressed and answered. A bite block was placed in the mouth and sedation was administered by anesthesia and titrated to comfort prior to starting the procedure. The Olympus upper endoscope was advanced under direct vision to the level of the third portion of the duodenum. Esophagus: The esophagus had a normal mucosal vascular pattern throughout its entirety. The GE junction was identified and was normal. 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 In addition there was a moderate-sized hiatal hernia with a suggestion of a small Steffi-Lomeli tear at the GE junction as well as linear erosion within lower third of the esophagus. There were also areas of salmon- colored mucosa extending cephalad from the GE junction consistent with Summers's epithelium. When viewed with NBI these were highly suggestive of areas of intestinal metaplasia. Biopsies were obtained from this area. Stomach: The stomach had a normal mucosal and vascular pattern throughout its entirety. Retroflexed view of the cardiofundic region revealed a normal mucosal and vascular pattern. There was a moderate-sized hiatal hernia with a suggestion of a concurrent paraesophageal hernia. There is also evidence of small Jona's-type erosion. There were no ulcers or masses noted. There were normal rugae and normal distensibility. The pylorus was patent and easily intubated. Biopsies were obtained from the antrum, angularis, gastric body and lesser curvature to rule out H. Pylori. Duodenum: The duodenum was fully examined from bulb down to the third portion. There was a normal mucosal vascular pattern throughout. With the endoscope in the forward-viewing position, it was slowly withdrawn and all areas were re-inspected and findings are as described previously. Patient tolerated the procedure well. EBL: Minimal Specimens Removed: Lower third of the esophagus to rule out Summers's epithelium Findings: 1. Large hiatal hernia 2. Minimal Jona's erosions 3. Probable Steffi-Lomeli tear without bleeding 4. 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 Linear erosion lower one third of the esophagus Impression: 1. Large hiatal hernia 2. Minimal Jona's erosions 3. Probable Steffi-Lomeli tear without bleeding 4. 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 Linear erosion lower one third of the esophagus Recommendations: 1. Await pathology 2. Patient to have Prevacid solid tabs twice a day for gastroesophageal reflux 3. Colonoscopy to complete workup CC: Gege RAMIREZ,Charisma; Sean RAMIREZ,Adelfo Alvarado
--- NOTE | 2017-11-28 13:59 | Proc Note Colonoscopy ---
Colonoscopy Procedure Medical History: unchanged Mental Status: alert/oriented Heart/Lung Eval Prior to Sedation: within normal limits Candidate for Sedation? Yes Date of Last Colonoscopy: March 2017 Procedure Date: 11/28/17 Procedure Type: incomplete colonoscopy Obstetrician: MD Galindo Deborah E. ASA Classification: III Indications: 1. Abnormal CT scan of the abdomen 2. Metastatic disease to the liver, Adenocarcinoma 3. Abnormal PET scan question increased activity cecum Instrument (Colonoscope): single channel Meds Received: MAC Patient's Tolerance: good Complications: none Extent Reached: incomplete Prep: good Procedure: The patient took a split dose colonic preparation after which they were NPO for an appropriate time prior to procedure. Note: Informed consent was obtained prior to procedure. Risks and benefits of procedure were discussed with patient. Potential complications discussed included perforation, bleeding, abdominal pain, and adverse reaction to medications. It was explained that iany or all of these complications could result in the need for extended hospitalization, emergency surgery, transfusion of packed red blood cells (with the risk of HIV or hepatitis virus), intubation with mechanical ventilation, and possible need for antibiotics. It was further explained that an existing tumor polyp or mucosal abnormality might not be identified at the time of the procedure thus resulting in a missed opportunity for early diagnosis and treatment of a gastrointestinal malignancy or disease with possible interval development of a gastrointestinal cancer or other disease with possible worsening of clinical condition in the interval between endoscopies. It was also discussed that complications are not limited to those listed above. Possible alternatives to endoscopic treatment or evaluation were discussed. All questions were answered. Continuous EKG and blood pressure monitors were attached. Supplemental oxygen was provided with O2 Sat monitoring. Patient was placed in the left lateral decubitus position. A surgical timeout was performed. All persons in the room were identified. All concerns were expressed and answered. Sedation was administered by anesthesia and titrated to comfort prior to starting procdedure. A digital rectal exam was performed. There was normal tone and no masses. The Olympus CHF 180AL video colonoscope was advanced under direct vision to the level of the mid sigmoid colon. There were large cascading diverticuli with marked mucosal hypertrophy. Upon reaching approximately 40 cm there was an area of diverticular narrowing which could not be bypassed. Patient was turned to the supine position as well as back to the left lateral decubitus position and anterior abdominal pressure was applied in multiple quadrants without being able to advance the pediatric colonoscope. Patient has oxygen-dependent COPD and is morbidly obese. Given concerns regarding ability to ventilate patient she was not turned to the prone position. Given concerns also regarding the potential for perforation with severe diverticular narrowing the procedure was terminated. With colonoscope in the forward-viewing position it was slowly withdrawn and all areas were reinspected. and retroflexed view of the rectum all fully examined. Retroflexed view of the rectum revealed a normal mucosal and vascular pattern. There was a normal mucosal and vascular pattern throughout the colon. Air was suctioned as the scope was withdrawn from the colon. Patient tolerated the procedure well. Cecal withdrawal time: N/A Colonic preparation: excellent Difficulty of Colonoscopy: Difficult EBL: None Specimens Removed: None Findings: 1. Severe sigmoid diverticulosis 2. Diverticular narrowing and stricture Impression: 1. Incomplete colonoscopy 2. Diverticulosis with diverticular narrowing I have spoken with Dr. Slater regarding my inability to complete Ms. macias colonoscopy. I've also spoken at length with the family regarding the findings on EGD and colonoscopy. I've explained to them that in all likelihood her bleeding was from a Steffi-Lomeli tear. I explained that in the setting of a hiatal hernia especially with possible paraesophageal hernia she is at risk for nausea and vomiting do both to structural abnormalities as well as to increased reflux. She has been taking Prevacid with good control of her reflux symptoms. I've also explained to them that the colonoscopy could not be completed thus a diagnosis of colon cancer could not be made definitively. I've told him that I would speak to Dr. Slater about this. I've also explained to them that Ms. Azul could still be treated empirically for colon cancer given the preponderance of evidence that points to this diagnosis. All questions have been answered. Recommendations: 1. Resume diet 2. Patient is stable from a GI point of view for transfer from ICU to floor 3. Would have palliative care see patient while in hospital 4. Patient's follow-up with Dr. Cherry and Dr. Zafar today as an outpatient 5. Patient to be discharged with prescription for Prevacid solute tabs 30 mg by mouth twice a day. CC: Gege RAMIREZ,Charisma; Sean RAMIREZ,Adelfo Alvarado
[2017-11-28 16:00] VITALS: BP 152/90
[2017-11-28 17:12] LABS: ABSOLUTE BASOPHIL COUNT 0 /CUMM (0.0-0.2); ABSOLUTE EOSINOPHIL COUNT 0 /CUMM (0.0-0.7); ABSOLUTE GRANULOCYTE CT 13.7 /CUMM (1.4-6.5); ABSOLUTE LYMPH COUNT 0.5 /CUMM (1.2-3.4); ABSOLUTE MONOCYTE COUNT 1.7 /CUMM (0.10-0.60); BASOPHIL % 0 % (0.0-2.0); EOSINOPHIL % 0 % (0-5); GRANULOCYTE % 85.9 % (42.2-75.2); HEMATOCRIT 26.1 % (37-47); MEAN CORPUSCULAR HGB 28.3 PG (27.0-31.0); MEAN CORPUSCULAR HGB CONC 32.6 G/DL (33.0-37.0); MEAN CORPUSCULAR VOLUME 86.8 FL (81.0-99.0); MEAN PLATELET VOLUME 8.3 FL (7.4-10.4); PLATELET COUNT 189 /CUMM (130-400); RBC DISTRIBUTION WIDTH 14.7 % (11.5-14.5)
[2017-11-29] VITALS: BP 150/80
[2017-11-29 04:09] LABS: ABSOLUTE BASOPHIL COUNT 0 /CUMM (0.0-0.2); ABSOLUTE EOSINOPHIL COUNT 0 /CUMM (0.0-0.7); ABSOLUTE GRANULOCYTE CT 13.2 /CUMM (1.4-6.5); ABSOLUTE LYMPH COUNT 0.4 /CUMM (1.2-3.4); ABSOLUTE MONOCYTE COUNT 1.5 /CUMM (0.10-0.60); BASOPHIL % 0.1 % (0.0-2.0); EOSINOPHIL % 0 % (0-5); GRANULOCYTE % 87.3 % (42.2-75.2); HEMATOCRIT 26.5 % (37-47); MEAN CORPUSCULAR HGB 28.8 PG (27.0-31.0); MEAN CORPUSCULAR HGB CONC 33.2 G/DL (33.0-37.0); MEAN CORPUSCULAR VOLUME 86.6 FL (81.0-99.0); PLATELET COUNT 188 /CUMM (130-400); RBC DISTRIBUTION WIDTH 14.9 % (11.5-14.5); RED BLOOD CELL CT 3.06 /CUMM (4.20-5.40); WHITE BLOOD CELL COUNT 15.1 /CUMM (4.8-10.8)
--- NOTE | 2017-11-29 07:04 | PN- Resident CRCU ---
Alon Rodriguez 11/29/17 0704: Subjective HPI/CRCU Issues: She was sleepy this morning. She stated that she was more tired compared to yesterday. Vital stable overnight. She underwent endoscopy and colonoscopy, and was found to have a possible Steffi-Lomeli tear. Colonoscopy was inconclusive, and did not suggest of having any colonic masses. H&H remains stable overnight. MAXIMUM TEMPERATURE 98.4 Heart rate 82-104 Respiration 26-36 Systolic blood pressure 134-166 Diastolic blood pressure 73-93 Oxygen saturation 94% on 2 L. Input 1885 mL, output 840 mL. Total since admission 6688 mL, output 1285 mL. Objective Vital Signs & I&O Last 8 Hrs of Vitals and I&O: Intake & Output 11/29 0800 Intake Total 230 Output Total 300 Balance -70 Intake, IV 130 Intake, Oral 100 Number 0 Bowel Movements Output, Urine 300 Exam General Appearance: no apparent distress Other Physical Findings: General Exam: AAOx3, palor, No acute distress, Skin: No rashes, no breakdown; HEENT: PERRLA, EOMI;Neck: Supple, No JVDl; No cervical lymphadenopathy;CVS: Reg Rate, Normal S1,S2, No MGR; Resp: Normal air entry, bilateral ronchi;Abdomen: Soft, No tenderness, Normal Bowel Sounds;Neuro: Normal Speech, Strength 5/5 b/l x 4 extremities, Sensation intact, CN III-XII NL, Reflexes 2+;Extremities: No cyanosis, no pedal edema Current Medications: Current Medications Sig/Narcisa Start time Last Medication Dose Route Stop Time Status Admin Acetaminophen 1,000 MG Q8P PRN 11/27 0045 DC N/A 1 UNIT IV Albuterol Sulfate 3 ML TID 11/27 899 AC 11/28 INH 2009 Ampicillin Sodium/ 3,000 MG Q6H 11/27 899 AC 11/29 Sulbactam Sodium IV 0327 Sodium Chloride 100 ML Budesonide/ 2 PUF BID 11/27 899 AC 11/28 Formoterol Fumarate INH 221 Chlorhexidine 1 GM .STK-MED ONE 11/28 1419 DC Gluconate TOP 11/28 1420 Duloxetine HCl 60 MG QPM 11/27 2100 AC 11/28 PO 2211 Duloxetine HCl 30 MG QAM 11/27 09 AC 11/28 PO 0823 Gabapentin 100 MG TID 11/27 09 AC 11/28 PO 2210 Magnesium Sulfate 1 GM ONCE ONE 11/28 0945 DC 11/28 Dextrose/Water 100 ML IV 11/28 1344 1013 Methylprednisolone 40 MG DAILY 11/29 09 AC IV Methylprednisolone 40 MG Q12 11/27 0930 DC 11/28 IV 2210 Ondansetron HCl 4 MG .STK-MED ONE 11/28 0815 DC IM 11/28 0816 Ondansetron HCl 4 MG Q6P PRN 11/27 0015 AC 11/28 IV 0825 Pantoprazole Sodium 40 MG BID 11/28 2100 AC 11/28 IV 2211 Pantoprazole Sodium 40 MG Q5H 11/26 2315 DC 11/28 Sodium Chloride 100 ML IV 1358 Polyethylene Glycol 0.5 GAL 0500 11/28 0500 DC 11/28 PO 0500 Polyethylene Glycol 0.5 GAL 5PM 11/27 1700 DC 11/27 PO 1730 Tiotropium [place] 1 PUF DAILY 11/27 09 AC 11/28 INH 0825 Impression/Plan Impression/Problem List Impression: Mr Camargo is a 87 year old woman w/ a PMHx of COPD (1.5 L oxygen), hypertension, recent diagnosis of ischemic colitis and severe diverticulosis (), who was evaluated recently for abnormal liver enzymes and was found to have multiple liver metastases likely primary source-Colon, who eventually got evaluated by Dr. Suazo (hematology/oncology), and underwent liver biopsy which showed moderately differentiated adenocarcinoma (waiting for final IHC stain analysis) came to the hospital with a chief concern of hematemesis after retching of unclear etiology with possible explanations such as Steffi-Lomeli tear, esophagitis. Pertinent lab findings WBC 23.8 (11/26)-->11.2 (11/27)--> 15.1(11/28)-->15.1(11/29) Hemoglobin 9.9 (11/26)-->8.5 (11/27)-->7.2(11/28)-->8.8(11/29) Platelets 312-->192(11/28)-->188(11/29) Electrolytes: Sodium 134, potassium 4.2 Renal function: BUN 21, creatinine 1.2(11/26)-->1.0(11/27) INR 1.08. Lactic acid 4.4--2.0--1.6 AST 196(11/26)-->337(11/27)--> 663(11/28)-->417(11/29) ALT 51-->77--> 123(11/28)-->104(11/29) Total bilirubin 0.9 Alkaline phosphatase 290. EGD performed by Dr. Nascimento 11/27/2017. CT abdomen 10/26/17 Fluorine-18 FDG PET/CT Scan whole body 11/08/2017 Repeat EGD in 11/28/17: 1. Large hiatal hernia 2. Minimal Jona's erosions 3. Probable Steffi-Lomeli tear without bleeding 4. 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 Linear erosion lower one third of the esophagus Colonoscopy 11/28/17- 1. Incomplete colonoscopy 2. Diverticulosis with diverticular narrowing Etiology in her case, is likely due to either an acute tear or esophagitis contributing to hematemesis. She also has liver metastases, this most likely from colon cancer which would make her have abnormal coagulated profile given decreased anti-coagulants such as protein C, protein S etc. She would definetly need evaluation of EGD and possible colonoscopy. In regards to her worsening cough, this could be due to aspiration pneumonitis secondary to hematemesis for which she is currently on unasyn emperically awaiting cultures. Problem list : 1. Hematemesis 2. hisotry of COPD 3. Liver mets likely primary Colon 4. History of hypertension 5. Stage 3 CKD Plan: Respiratory- Aspiration pneumonitis and pneumonia in the differential. She also has COPD for which she was given solumedrol which could be continued. - Continue Solu-Medrol IV, but would decrease the frequency. - Continue Unasyn 3gm q6, pending cultures. DC if able. Infectious- - Leukocytosis improving. -Continue antibiotics for now. -Monitor for any fever. Hematology- -Hemoglobin 8.8. -CBC every 12 hours -Transfuse, if there is a positive drop in H&H. -Monitor hemodynamics closely. -Avoid antiplatelet agents at this time. Metabolic- -Currently stable -Monitor renal function daily Alimentary- -Repeat upper endoscopy and colonoscopy done on 11/28 -Inform GI, if active GI bleeding or hemodynamic instability -Protonix drip could be converted to twice a day after the procedure. -Aspiration precautions -Follow liver chemistries, and coag panel daily. -Management of liver mets as per Oncology Housekeeping -DVT prophylaxis-ALPS -GI prophylaxis-Protonix ICU checklist -IV/peripheral line - 11/26/17 -Arterial line- none -Dennis cath-none -Rectal tube-none -Central line-none -Ventilator- none -Pressors-none Consults: 1. GI- Dr. Nascimento Problem List: 1. Metastatic cancer to liver 2. Upper GI bleed Pain Ratin Tomorrow's Labs & Rationales: cbc bep Plan DVT/Prophylaxis: Chalino Aquino MD 11/29/17 1151: Attending MD Review Statement Attending Sign Off Attending Cosign Statement: I have: examined this patient, reviewed avalbl EMR data, personally reviewd images, discussd w/resident/PA/ALL ROUND LOGGER, discussed mgmt plan w/henrietta, discussed mgmt plan w/CM, discussed mgmt plan w/pt, agreed w/resident/PA/ALL ROUND LOGGER, amended to note. Other Findings: IChalino M.D. have examined this patient, reviewed available EMR data, personally reviewed images, discussed with resident/PA/ALL ROUND LOGGER, discussed management plan with housestaff and nursing staff, discussed managment plan all of healthcare providers, discussed management plan with patient and/or family, agreed with resident/PA/ALL ROUND LOGGER. The past history and parts of the chart have been autopopulated. Impression 87-year-old woman * Acute blood loss anemia/hematemesis upper GI bleed source most likely secondary to Steffi-Lomeli tear/esophagitis * Recent diagnosis by liver biopsy of adenocarcinoma likely suggestive of colon primary * COPD with mild exacerbation Plan -hemoglobin stable -s/p egd/colonoscopy - reviewed -steroid taper (after today - 2 more days of prednisone 40mg po, then stop) -unasyn for a total of 5 days, leukocytosis improving -no obvious evidence of aspiration on cxr -f/u oncology recs -TRC/Nebs DVT prophylaxis with ALPS TTS 35 min Downgrade to PT consultation
[2017-11-29 07:30] VITALS: BP 160/86
--- NOTE | 2017-11-29 07:34 | PN- Oncology ---
Subjective Subjective: Resting comfortably Review of Systems: 12 point review of systems otherwise unremarkable Objective Vital Signs and I&Os Vital Signs Date Time Temp Pulse Resp B/P B/P Pulse O2 O2 Flow FiO2 Mean Ox Delivery Rate 11/29 040 94 Nasal 2.0L Cannula 11/29 96 Nasal 2.0L Cannula 11/29 98.6 102 28 150/80 96 Nasal 2.0L Cannula 11/28 2012 96 Nasal 2.0L Cannula 11/29 1999 95 Nasal 2.0L Cannula 11/29 1599 98.7 98 28 152/90 98 Nasal 5.0L Cannula 11/29 1599 98 Nasal 2.0L Cannula 11/28 1330 88 30 118/80 91 Nasal 2.0L Cannula 11/28 0909 95 Nasal 2.0L Cannula 11/28 08 97.8 103 27 142/84 97 Nasal 2.0L Cannula 11/28 08 97 Nasal 2.0L Cannula Intake & Output 11/29 0811/29 0000 11/28 1600 11/28 0811/28 0000 11/27 1600 Intake Total 230 876 427 471 1027 1227 Output Total 300 300 240 300 210 275 Balance -70 576 888 02 2255 952 Intake, Blood 350 Product Intake, IV 130 266 379 268 302 927 Intake, Oral 100 610 50 100 2500 300 Number 0 2 7 6 2 1 Bowel Movements Output, Urine 300 300 240 300 210 275 Patient 186 lb 186 lb Weight Weight Bed scale Measurement Method Gen.: in NAD ENT: Sclera anicteric Chest: Normal respiratory effort, decreased breath sounds Cor: RRR, no extra sounds Abdomen: Soft, bowel sounds present, no tenderness, no rebound Extremities: Without clubbing, cyanosis, or asymmetric edema Neurology: Alert and oriented 3, Current Medications: Current Medications Sig/Narcisa Start time Last Medication Dose Route Stop Time Status Admin Acetaminophen 1,000 MG Q8P PRN 11/27 0045 DC N/A 1 UNIT IV Albuterol Sulfate 3 ML TID 11/27 899 AC 11/28 INH 2009 Ampicillin Sodium/ 3,000 MG Q6H 11/27 899 AC 11/29 Sulbactam Sodium IV 0327 Sodium Chloride 100 ML Budesonide/ 2 PUF BID 11/27 899 AC 11/28 Formoterol Fumarate INH 221 Chlorhexidine 1 GM .STK-MED ONE 11/28 1419 DC Gluconate TOP 11/28 1420 Duloxetine HCl 60 MG QPM 11/27 2099 AC 11/28 PO 2211 Duloxetine HCl 30 MG QAM 11/27 09 AC 11/28 PO 0823 Gabapentin 100 MG TID 11/27 09 AC 11/28 PO 2210 Magnesium Sulfate 1 GM ONCE ONE 11/28 0945 DC 11/28 Dextrose/Water 100 ML IV 11/28 1344 1013 Methylprednisolone 40 MG DAILY 11/29 899 AC IV Methylprednisolone 40 MG Q12 11/27 929 DC 11/28 IV 2210 Ondansetron HCl 4 MG .STK-MED ONE 11/28 0815 DC IM 11/28 0816 Ondansetron HCl 4 MG Q6P PRN 11/27 0015 AC 11/28 IV 0825 Pantoprazole Sodium 40 MG BID 11/28 2099 AC 11/28 IV 2211 Pantoprazole Sodium 40 MG Q5H 11/26 2315 DC 11/28 Sodium Chloride 100 ML IV 1358 Polyethylene Glycol 0.5 GAL 0500 11/28 0500 DC 11/28 PO 0500 Polyethylene Glycol 0.5 GAL 5PM 11/27 1700 DC 11/27 PO 1730 Tiotropium [place] 1 PUF DAILY 11/27 09 AC 11/28 INH 0825 Results Last 24 Hours of Lab Results: Laboratory Tests 11/29 11/28 0320 1700 Chemistry Sodium (137 - 145 mmol/L) 136 L Potassium (3.5 - 5.1 mmol/L) 3.5 Chloride (98 - 107 mmol/L) 98 Carbon Dioxide (22 - 30 mmol/L) 29 Anion Gap (5 - 16) 10 BUN (7 - 17 mg/dL) 19 H Creatinine (0.5 - 1.0 mg/dL) 0.9 Estimated GFR (>60 ml/min) 60 Glucose (65 - 99 mg/dL) 117 H Calcium (8.4 - 10.2 mg/dL) 8.2 L Phosphorus (2.5 - 4.5 mg/dL) 3.2 Magnesium (1.6 - 2.3 mg/dL) 2.1 Total Bilirubin (0.2 - 1.3 mg/dL) 1.2 AST (14 - 36 U/L) 417 H ALT (9 - 52 U/L) 104 H Albumin (3.5 - 5.0 g/dL) 2.7 L Hematology CBC w Diff MAN DIFF ORDERED NO MAN DIFF REQ WBC (4.8 - 10.8 /CUMM) 15.1 H 16.0 H RBC (4.20 - 5.40 /CUMM) 3.06 L 3.00 L Hgb (12.0 - 16.0 G/DL) 8.8 L 8.5 L Hct (37 - 47 %) 26.5 L 26.1 L MCV (81.0 - 99.0 FL) 86.6 86.8 MCH (27.0 - 31.0 PG) 28.8 28.3 MCHC (33.0 - 37.0 G/DL) 33.2 32.6 L RDW (11.5 - 14.5 %) 14.9 H 14.7 H Plt Count (130 - 400 /CUMM) 188 189 MPV (7.4 - 10.4 FL) 9.0 8.3 Gran % (42.2 - 75.2 %) 87.3 H 85.9 H Lymphocytes % (20.5 - 51.1 %) 2.8 L 3.1 L Monocytes % (1.7 - 9.3 %) 9.8 H 11.0 H Eosinophils % (0 - 5 %) 0 0 Basophils % (0.0 - 2.0 %) 0.1 0 Absolute Granulocytes (1.4 - 6.5 /CUMM) 13.2 H 13.7 H Segmented Neutrophils (42.2 - 75.2 %) 91 H Band Neutrophils (0.0 - 5.0 %) 1 Absolute Lymphocytes (1.2 - 3.4 /CUMM) 0.4 L 0.5 L Lymphocytes (20.5 - 51.1 %) 2 L Monocytes (1.7 - 9.3 %) 6 Absolute Monocytes (0.10 - 0.60 /CUMM) 1.5 H 1.7 H Absolute Eosinophils (0.0 - 0.7 /CUMM) 0 0 Absolute Basophils (0.0 - 0.2 /CUMM) 0 0 Platelet Estimate (ADEQUATE) ADEQUATE Polychromasia 1+ Poikilocytosis 1+ Basophilic Stippling 1+ Ovalocytes 1+ Stomatocytes FEW Other Body Source Fld Total RBCs Counted (%) 100 Assessment/Plan Assessment/Recommendations: 1. Upper GI bleeding-repeat EGD-no malignancy or ulcers detected.? Steffi- Lomeli tear 2. Metastatic carcinoma-a suboptimal colonoscopy did not identify colonic lesion. Given the activity on scan and positive biopsy in the liver, colon cancer seems most likely. Patient will return to my office as an outpatient for further discussions regarding systemic therapy will be held 3. Discharge planning-would advocate Can Support nursing Discussed with family
[2017-11-29] MEDS ORDERED: LISINOPRIL10 M1 PO (08:30)
[2017-11-29] MEDS ORDERED: PREVACID30 M1 PO (09:16)
[2017-11-29 16:30] VITALS: BP 132/76
[2017-11-29 23:00] VITALS: BP 138/78
--- NOTE | 2017-11-30 06:51 | PN- Oncology ---
Subjective Subjective: Offers no specific complaints, feels quite well 12 point review of systems negative Objective Vital Signs and I&Os Vital Signs Date Time Temp Pulse Resp B/P B/P Pulse O2 O2 Flow FiO2 Mean Ox Delivery Rate 11/30 0000 96 Nasal 2.0L Cannula 11/29 2329 95 Nasal 2.0L Cannula 11/29 2300 98.2 94 18 138/78 96 Nasal 2.0L Cannula 11/29 1930 98 Nasal 2.0L Cannula 11/29 1630 97.4 96 18 132/76 96 Nasal 2.0L Cannula 11/29 1600 94 Nasal 2.0L Cannula 11/29 0919 104 136/74 11/29 0842 94 Nasal 2.0L Cannula 11/29 0800 94 Nasal 2.0L Cannula 11/29 0730 97.7 102 22 160/86 94 Nasal 2.0L Cannula Intake & Output 11/30 0800 11/30 0000 11/29 1600 11/29 0800 11/29 0000 11/28 1600 Intake Total 480 661 230 876 779 Output Total 100 200 155 300 300 240 Balance -100 280 506 -70 576 539 Intake, Blood 350 Product Intake, IV 251 130 266 379 Intake, Oral 480 410 100 610 50 Number 0 1 1 0 2 7 Bowel Movements Output, Urine 100 200 155 300 300 240 Patient 186 lb Weight Gen.: in NAD ENT: Sclera anicteric Chest: Normal respiratory effort, decreased breath sounds Cor: RRR, no extra sounds Abdomen: Soft, bowel sounds present, no tenderness, Extremities: Without clubbing, cyanosis, or asymmetric edema Neurology: Alert and oriented 3, no gross deficit Current Medications: Current Medications Sig/Narcisa Start time Last Medication Dose Route Stop Time Status Admin Albuterol Sulfate 3 ML TID 11/27 899 AC 11/29 INH 2328 Amoxicillin/ 875 MG Q12 11/29 2099 AC 11/29 Clavulanate Potassium PO 2057 Ampicillin Sodium/ 3,000 MG Q6H 11/27 09 DC 11/29 Sulbactam Sodium IV 11/29 1600 1441 Sodium Chloride 100 ML Budesonide/ 2 PUF BID 11/27 899 AC 11/29 Formoterol Fumarate INH 2058 Calcium Carbonate 500 MG DAILY PRN 11/29 1930 AC 11/29 PO 2056 Duloxetine HCl 60 MG QPM 11/27 2099 AC 11/29 PO 2057 Duloxetine HCl 30 MG QAM 11/27 09 AC 11/29 PO 09 Gabapentin 100 MG TID 11/27 09 AC 11/29 PO 2057 Lisinopril 10 MG DAILY 11/29 09 AC 11/29 PO 09 Methylprednisolone 40 MG DAILY 11/29 0900 DC 11/29 IV 0907 Ondansetron HCl 4 MG Q6P PRN 11/27 0015 AC 11/28 IV 08 Pantoprazole Sodium 40 MG BID 11/28 2100 AC 11/29 IV 2058 Prednisone 40 MG DAILY 11/30 09 AC PO Tiotropium [place] 1 PUF DAILY 11/27 09 AC 11/29 INH 0907 Results Last 24 Hours of Lab Results: Laboratory Tests 11/30 634 Chemistry Sodium Pending Potassium Pending Chloride Pending Carbon Dioxide Pending Anion Gap Pending BUN Pending Creatinine Pending BUN/Creatinine Ratio Pending Total Bilirubin Pending Direct Bilirubin Pending AST Pending ALT Pending Alkaline Phosphatase Pending Total Protein Pending Albumin Pending Hematology CBC w Diff Pending WBC Pending RBC Pending Hgb Pending Hct Pending MCV Pending MCH Pending MCHC Pending RDW Pending Plt Count Pending MPV Pending Assessment/Plan Assessment/Recommendations: 1. Upper GI bleed-clinically stable 2. Presumed stage IV colon cancer-chemotherapy as an outpatient Hopefully patient can be discharged soon with follow-up in my office next week
--- NOTE | 2017-11-30 07:06 | PN- Resident CRCU ---
MichaelPauliejanet 11/30/17 0706: Subjective HPI/CRCU Issues: She is comfortable this morning. Did not have any new concerns. No chest pain, shortness of breath. Continues to have wheezing, which is chronic for her. Appetite seems to be improving. She got the bed yesterday to sit in the chair. 24 Hour Events: Temperature 98.2, pulse rate 94, respiration 18, blood pressure 138/78, pulse ox 96% on 2 L. Objective Vital Signs & I&O Last 8 Hrs of Vitals and I&O: Intake & Output 11/30 0800 Intake Total Output Total 100 Balance -100 Number 0 Bowel Movements Output, Urine 100 Exam General Appearance: awake Other Physical Findings: General Exam: AAOx3, palor, No acute distress, Skin: No rashes, no breakdown; HEENT: PERRLA, EOMI;Neck: Supple, No JVDl; No cervical lymphadenopathy;CVS: Reg Rate, Normal S1,S2, No MGR; Resp: Normal air entry, bilateral ronchi;Abdomen: Soft, No tenderness, Normal Bowel Sounds;Neuro: Normal Speech, Strength 5/5 b/l x 4 extremities, Sensation intact, CN III-XII NL, Reflexes 2+;Extremities: No cyanosis, no pedal edema Impression/Plan Impression/Problem List Impression: Mr Camargo is a 87 year old woman w/ a PMHx of COPD (1.5 L oxygen), hypertension, recent diagnosis of ischemic colitis and severe diverticulosis (), who was evaluated recently for abnormal liver enzymes and was found to have multiple liver metastases likely primary source-Colon, who eventually got evaluated by Dr. Suazo (hematology/oncology), and underwent liver biopsy which showed moderately differentiated adenocarcinoma (waiting for final IHC stain analysis) came to the hospital with a chief concern of hematemesis after retching of unclear etiology with possible explanations such as Steffi-Lomeli tear, esophagitis. Pertinent lab findings WBC 23.8 (11/26)-->11.2 (11/27)--> 15.1(11/28)-->15.1(11/29)-->16.4(11/30) Hemoglobin 9.9 (11/26)-->8.5 (11/27)-->7.2(11/28)-->8.8(11/29)-->8.3(11/30) Platelets 312-->192(11/28)-->188(11/29)-->193(11/30) Electrolytes: Sodium 134, potassium 4.2-->3.3(11/30) Renal function: BUN 21, creatinine 1.2(11/26)-->1.0(11/27) INR 1.08. Lactic acid 4.4--2.0--1.6 AST 196(11/26)-->337(11/27)--> 663(11/28)-->417(11/29)-->176(11/30) ALT 51-->77--> 123(11/28)-->104(11/29)-->82(11/30) Total bilirubin 0.9 Alkaline phosphatase 290. EGD performed by Dr. Nascimento 11/27/2017. CT abdomen 10/26/17 Fluorine-18 FDG PET/CT Scan whole body 11/08/2017 Repeat EGD done 11/30/17. Etiology in her case, is likely due to either an acute tear or esophagitis contributing to hematemesis. She also has liver metastases, this most likely from colon cancer which would make her have abnormal coagulated profile given decreased anti-coagulants such as protein C, protein S etc. She would definetly need evaluation of EGD and possible colonoscopy. In regards to her worsening cough, this could be due to aspiration pneumonitis secondary to hematemesis for which she is currently on unasyn emperically awaiting cultures. Problem list : 1. Hematemesis 2. hisotry of COPD 3. Liver mets likely primary Colon 4. History of hypertension 5. Stage 3 CKD Plan: Respiratory- Aspiration pneumonitis and pneumonia in the differential. She also has COPD for which she was given solumedrol which could be continued. - Continue Solu-Medrol IV, but would decrease the frequency. - Continue Unasyn 3gm q6, pending cultures. DC abx in the am. Infectious- - Leukocytosis improving. -Continue antibiotics for now. -Monitor for any fever. Hematology- -Hemoglobin 8.3 -CBC in the am. -Transfuse, if there is a positive drop in H&H. -Monitor hemodynamics closely. -Avoid antiplatelet agents at this time. Metabolic- -Currently stable -Monitor renal function daily Alimentary- -Repeat upper endoscopy and colonoscopy done on 11/28 -Inform GI, if active GI bleeding or hemodynamic instability -Protonix drip could be converted to twice a day after the procedure. -Aspiration precautions -Follow liver chemistries, and coag panel daily. -Management of liver mets as per Oncology Housekeeping -DVT prophylaxis-ALPS -GI prophylaxis-Protonix ICU checklist -IV/peripheral line - 11/26/17 -Arterial line- none -Dennis cath-none -Rectal tube-none -Central line-none -Ventilator- none -Pressors-none Consults: 1. GI- Dr. Nascimento Problem List: 1. Metastatic cancer to liver 2. Upper GI bleed 3. ROSA ELENA (acute kidney injury) 4. GI bleed Pain Ratin Tomorrow's Labs & Rationales: cbc bep Plan DVT/Prophylaxis: mechanical Zhanna RAMIREZ,Chalino 11/30/17 0935: Objective Current Medications: Current Medications Sig/Narcisa Start time Last Medication Dose Route Stop Time Status Admin Albuterol Sulfate 3 ML TID 11/27 899 AC 12/01 INH 0839 Amoxicillin/ 875 MG Q12 11/29 2099 AC 11/30 Clavulanate Potassium PO 12/01 Budesonide/ 2 PUF BID 11/27 899 AC 11/30 Formoterol Fumarate INH 2006 Calcium Carbonate 500 MG DAILY PRN 11/29 1930 AC 11/29 PO 2056 Duloxetine HCl 60 MG QPM 11/27 2099 AC 11/30 PO 2033 Duloxetine HCl 30 MG QAM 11/27 899 AC 11/30 PO 103 Gabapentin 100 MG TID 11/27 09 AC 11/30 PO 2033 Insulin Detemir 20 UNITS .STK-MED ONE 11/30 2044 DC WI 11/30 2045 Lisinopril 10 MG DAILY 11/29 899 AC 11/30 PO 103 Omeprazole 40 MG DAILY AC 12/01 0700 AC 12/01 PO 0548 Ondansetron HCl 4 MG Q6P PRN 11/27 0015 AC 11/28 IV 0825 Pantoprazole Sodium 40 MG BID 11/28 2100 DC 11/30 IV 11/30 2300 2004 Prednisone 40 MG DAILY 11/30 0900 AC 11/30 PO 12/01 1000 1036 Tiotropium [place] 1 PUF DAILY 11/27 0900 AC 11/30 INH 1036 Attending MD Review Statement Attending Sign Off Attending Cosign Statement: I have: examined this patient, reviewed avalbl EMR data, personally reviewd images, discussd w/resident/PA/MEDICAL SALES CONSULTANT, discussed mgmt plan w/henrietta, discussed mgmt plan w/CM, discussed mgmt plan w/pt, agreed w/resident/PA/MEDICAL SALES CONSULTANT, amended to note. Other Findings: I, Chalino Chao M.D. have examined this patient, reviewed available EMR data, personally reviewed images, discussed with resident/PA/MEDICAL SALES CONSULTANT, discussed management plan with housestaff and nursing staff, discussed managment plan all of healthcare providers, discussed management plan with patient and/or family, agreed with resident/PA/MEDICAL SALES CONSULTANT. The past history and parts of the chart have been autopopulated. Impression 87-year-old woman * Acute blood loss anemia/hematemesis upper GI bleed source most likely secondary to Steffi-Lomeli tear/esophagitis * Recent diagnosis by liver biopsy of adenocarcinoma likely suggestive of colon primary * COPD with mild exacerbation Plan -hemoglobin stable -s/p egd/colonoscopy - reviewed -steroids - stop tomorrow 12/01 -unasyn for a total of 5 days, leukocytosis stable, ?related to malignancy -no obvious evidence of aspiration on cxr -f/u oncology recs -TRC/Nebs DVT prophylaxis with ALPS GM hold physical therapy dc planning
[2017-11-30 07:39] LABS: ABSOLUTE BASOPHIL COUNT 0 /CUMM (0.0-0.2); ABSOLUTE EOSINOPHIL COUNT 0 /CUMM (0.0-0.7); ABSOLUTE GRANULOCYTE CT 12.9 /CUMM (1.4-6.5); ABSOLUTE LYMPH COUNT 1.2 /CUMM (1.2-3.4); ABSOLUTE MONOCYTE COUNT 2.4 /CUMM (0.10-0.60); BASOPHIL % 0 % (0.0-2.0); EOSINOPHIL % 0 % (0-5); GRANULOCYTE % 78.4 % (42.2-75.2); MEAN CORPUSCULAR HGB 28.6 PG (27.0-31.0); MEAN CORPUSCULAR HGB CONC 33.2 G/DL (33.0-37.0); MEAN CORPUSCULAR VOLUME 86.2 FL (81.0-99.0); MEAN PLATELET VOLUME 9.3 FL (7.4-10.4); PLATELET COUNT 193 /CUMM (130-400); RBC DISTRIBUTION WIDTH 14.6 % (11.5-14.5); WHITE BLOOD CELL COUNT 16.4 /CUMM (4.8-10.8)
[2017-11-30 08:00] VITALS: BP 140/76
[2017-11-30 16:00] VITALS: BP 136/76
[2017-11-30 20:04] VITALS: BP 150/80
[2017-11-30 21:10] VITALS: BP 140/80
[2017-12-01] MEDS ORDERED: AMOX-CLAV 875-1 EACH PO (05:45)
--- NOTE | 2017-12-01 05:48 | Patient Discharge Instructions ---
Discharge Instructions General Discharge Information You were seen/treated for: - Upper GI bleed You had these procedures: Upper endoscopy Colonoscopy Special Instructions: 1. Please see your PCP, Image Processing Engineer, Oncologist within a week, and discuss with them about your recent hospitalization. Please check your blood work in one week as instructed for evaluation of anemia. 2. Please follow up with your oncologist regarding the pathology results, and also talk to your socket welder helper, if a follow up colonoscopy should be done at a later point. 3. Please return to the ER/call your doctor, if you have any blood in your vomitus. 4. Please take your medications as prescribed. Acute Coronary Syndrome Inclusion Criteria At DC or during hospital stay patient has or had the following: ACS DIAGNOSIS No Discharge Core Measures Meds if any: Prescribed or Continued at Discharge Meds if any: NOT Prescribed or Continued at Discharge Congestive Heart Failure Inclusion Criteria At DC or during hospital stay patient has or had the following: CHF DIAGNOSIS No Discharge Core Measures Meds if any: Prescribed or Continued at Discharge Meds if any: NOT Prescribed or Continued at Discharge Cerebrovascular accident Inclusion Criteria At DC or during hospital stay patient has or had the following: CVA/TIA Diagnosis No Discharge Core Measures Meds if any: Prescribed or Continued at Discharge Meds if any: NOT Prescribed or Continued at Discharge Venous thromboembolism Inclusion Criteria VTE Diagnosis No VTE Type NONE VTE Confirmed by (Test) NONE Discharge Core Measures - Per Current guidelines, there needs to be overlap - treatment for the first 5 days of Warfarin therapy. - If discharged on Warfarin prior to 5 days of - overlap therapy, the patient will need to be - assessed for post discharge needs including - *Post discharge parental anticoagulation - *Warfarin and/or parental anticoagulation education - *Follow up date to check INR post discharge At least 5 days overlap therapy as Inpatient No Meds if any: Prescribed or Continued at Discharge Note: Overlap Therapy is Warfarin and Anticoagulant Meds if any: NOT Prescribed or Continued at Discharge
[2017-12-01 07:07] VITALS: BP 138/76
--- NOTE | 2017-12-01 07:10 | PN- Housestaff ---
Emilie Huerta MD,[facility] 12/01/17 0710: Subjective Follow-up For: GI bleeding Possible aspiration pneumonia Acute blood loss anemia Subjective: Patient visited today, was lying in bed comfortably in no acute distress, was alert and oriented. No fever or chills, no chest pain, no other events. S/p upper and lower endoscopy, GI bleeding most likely due to Steffi-Lomeli tear and possible aspiration pneumonia. Patient reported shortness of breathing, still had wheezing in exminaiton, requesting to be discharged. We will evluate patient later today for possible discharge. Review of Systems Constitutional: Reports: see HPI. Objective Last 24 Hrs of Vital Signs/I&O Vital Signs Date Time Temp Pulse Resp B/P B/P Pulse O2 O2 Flow FiO2 Mean Ox Delivery Rate 12/01 1013 96 138/76 12/01 0849 96 Nasal 2.0L Cannula 12/01 0722 96 12/01 0707 98.9 112 18 138/76 97 / 0000 Nasal 2.0L Cannula 11/30 2110 99.2 102 18 140/80 94 Room Air 11/30 2040 92 Room Air 12/01 2003 98.8 103 22 150/80 96 Room Air Room Air 11/30 1600 98.6 90 18 136/76 93 Room Air Intake & Output 12/01 1600 12/01 0800 12/01 0000 Intake Total 520 Output Total 900 Balance -380 Intake, Oral 520 Number 0 Bowel Movements Output, Urine 900 Patient 200 lb Weight Physical Exam General Appearance: Alert, Oriented X3, Cooperative, No Acute Distress Skin Temp/Moisture Exam: Warm/Dry HEENT: Atraumatic, EOMI Cardiovascular: Normal S1, Normal S2 Lungs: bilateral wheezing Abdomen: Soft, No Tenderness Neurological: Normal Speech Current Medications: Current Medications Sig/Narcisa Start time Last Medication Dose Route Stop Time Status Admin Albuterol Sulfate 3 ML TID 11/27 09 AC 12/01 INH 0839 Amoxicillin/ 875 MG Q12 11/29 2099 AC 12/01 Clavulanate Potassium PO 12/01 2199 1014 Budesonide/ 2 PUF BID 11/27 09 AC 12/01 Formoterol Fumarate INH 1014 Calcium Carbonate 500 MG DAILY PRN 11/29 1930 AC 11/29 PO 2056 Duloxetine HCl 60 MG QPM 11/27 2099 AC 11/30 PO 2033 Duloxetine HCl 30 MG QAM 11/27 899 AC 12/01 PO 1015 Gabapentin 100 MG TID 11/27 899 AC 12/01 PO 1014 Insulin Detemir 20 UNITS .STK-MED ONE 11/30 2044 DC SC 11/30 2045 Lisinopril 10 MG DAILY 11/29 09 AC 12/01 PO 1013 Omeprazole 40 MG BID 12/01 2100 AC PO Omeprazole 40 MG DAILY AC 12/01 0700 DC 12/01 PO 0548 Ondansetron HCl 4 MG Q6P PRN 11/27 0015 AC 11/28 IV 0825 Pantoprazole Sodium 40 MG BID 11/28 2100 DC 11/30 IV 11/30 2300 2004 Prednisone 40 MG DAILY 11/30 09 DC 12/01 PO 12/01 1000 1014 Tiotropium [place] 1 PUF DAILY 11/27 09 AC 12/01 INH 1014 Last 24 Hrs of Lab/Juan Results Last 24 Hrs of Labs/Mics: Laboratory Tests 12/01/17 0645: Anion Gap 7, Estimated GFR > 60, BUN/Creatinine Ratio 22.5, Total Bilirubin 1.1, Direct Bilirubin 0.9 H, AST 120 H, ALT 68 H, Alkaline Phosphatase 238 H, Total Protein 5.3 L, Albumin 2.5 L, CBC w Diff NO MAN DIFF REQ, RBC 2.95 L, MCV 87.2, MCH 28.3, MCHC 32.5 L, RDW 15.4 H, MPV 9.1, Gran % 79.8 H, Lymphocytes % 6.1 L, Monocytes % 14.0 H, Eosinophils % 0.1, Basophils % 0, Absolute Granulocytes 14.3 H, Absolute Lymphocytes 1.1 L, Absolute Monocytes 2.5 H, Absolute Eosinophils 0, Absolute Basophils 0 Assessment/Plan Assessment: Mr Camargo is a 87 year old woman w/ a PMHx of COPD (1.5 L oxygen), hypertension, recent diagnosis of ischemic colitis and severe diverticulosis (), who was evaluated recently for abnormal liver enzymes and was found to have multiple liver metastases likely primary source-Colon, who eventually got evaluated by Dr. Suazo (hematology/oncology), and underwent liver biopsy which showed moderately differentiated adenocarcinoma (waiting for final IHC stain analysis) came to the hospital with a chief concern of hematemesis after retching of unclear etiology with possible explanations such as Steffi-Lomeli tear, esophagitis. Pertinent lab findings WBC 23.8 (11/26)-->11.2 (11/27)--> 15.1(11/28)-->15.1(2)-->16.4(11/30) Hemoglobin 9.9 (11/26)-->8.5 (11/27)-->7.2(11/28)-->8.8(11/29)-->8.3(3) Platelets 312-->192(11/28)-->188(2)-->193(3) Electrolytes: Sodium 134, potassium 4.2-->3.3(3) Renal function: BUN 21, creatinine 1.2(11/26)-->1.0(11/27) INR 1.08. Lactic acid 4.4--2.0--1.6 AST 196(11/26)-->337(11/27)--> 663(11/28)-->417(11/29)-->176(11/30) ALT 51-->77--> 123(11/28)-->104(2)-->82(3) Total bilirubin 0.9 Alkaline phosphatase 290. EGD performed by Dr. Nascimento 11/27/2017. CT abdomen 10/26/17 Fluorine-18 FDG PET/CT Scan whole body 11/08/2017 Repeat EGD done 11/30/17. GI bleeding, acute blood loss anemia Patient underwent EGD as noted above. Most likely etiology considered to be steffi liana tear. Colonoscopy was incomplete. Follow CBC was stayed to be stable. We continued PO PPI. History of COPD, Aspiration pneumonia Patien reported worsening cough, leukocytosis, this could be due to aspiration pneumonitis/pneumonia secondary for which she patient received Unasyn and prednisone. It was planned to continue Augmentin to complete 7 day course. - continuie augmentin to complete 7 d - PO pred, last dose today Chornic medical conditions: CKD, HTN, mets to liver We continued home management, holding RUSTY medication. Management of liver mets as per Oncology -DVT prophylaxis-ALPS - FC Problem List: 1. GI bleed 2. Metastatic cancer to liver Pain Ratin Pain Location: None Pain Goal: Pain 4 or less Pain Plan: Conitnue current plan Tomorrow's Labs & Rationales: GEORGES Rodriguez MD,[facility] 12/01/17 1456: Attending MD Review Statement Attending Statement Attending MD Statement: examined this patient, discuss w/resident/PA/HEAD LIBRARIAN, agreed w/resident/PA/HEAD LIBRARIAN, reviewed EMR data (avail), discussed with nursing, discussed with case mgmt, amended to note Attending Assessment/Plan: Patient seen and examined. Transferred out of the ICU overnight. Resting comfortably not in any acute distress. She is afebrile hemodynamically stable. Maintaining saturation on baseline oxygen supplementation. Denies nausea vomiting. Denies abdominal pain. On examination she has fair entry bilaterally with diffuse rhonchi. 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 Abdomen is soft and nontender. She has no peripheral edema. Hemoglobin level has been stable since transfusion. She denies any rectal bleeding or coughing up blood. She is medically stable to be discharged today. She is to follow-up with the gastroenterology service as an outpatient. She is to have a hemoglobin level repeated next week to ensure stability. She was treated for exacerbation of COPD with oral prednisone and bronchodilator therapy during this hospitalization. Sputum cultures are currently growing Enterobacter. She will be discharged on ciprofloxacin to complete antibiotic course for her bronchitis secondary to Enterobacter.
[2017-12-01 08:11] LABS: ABSOLUTE BASOPHIL COUNT 0 /CUMM (0.0-0.2); ABSOLUTE EOSINOPHIL COUNT 0 /CUMM (0.0-0.7); ABSOLUTE GRANULOCYTE CT 14.3 /CUMM (1.4-6.5); ABSOLUTE LYMPH COUNT 1.1 /CUMM (1.2-3.4); ABSOLUTE MONOCYTE COUNT 2.5 /CUMM (0.10-0.60); BASOPHIL % 0 % (0.0-2.0); EOSINOPHIL % 0.1 % (0-5); GRANULOCYTE % 79.8 % (42.2-75.2); HEMATOCRIT 25.7 % (37-47); MEAN CORPUSCULAR HGB 28.3 PG (27.0-31.0); MEAN CORPUSCULAR HGB CONC 32.5 G/DL (33.0-37.0); MEAN CORPUSCULAR VOLUME 87.2 FL (81.0-99.0); MEAN PLATELET VOLUME 9.1 FL (7.4-10.4); PLATELET COUNT 198 /CUMM (130-400); RBC DISTRIBUTION WIDTH 15.4 % (11.5-14.5); RED BLOOD CELL CT 2.95 /CUMM (4.20-5.40); WHITE BLOOD CELL COUNT 17.9 /CUMM (4.8-10.8)
[2017-12-01 10:13] VITALS: BP 138/76
[2017-12-01] MEDS ORDERED: PREVACID30 M1 PO ×2 (10:30→14:53)
--- NOTE | 2017-12-01 10:33 | PN- Pulmonary ---
Subjective HPI/Critical Care Issues: pt seen and examined transferred out of icu no bleeding comfortable Objective Current Medications: Current Medications Sig/Narcisa Start time Last Medication Dose Route Stop Time Status Admin Albuterol Sulfate 3 ML TID 11/27 0900 AC 12/01 INH 0839 Amoxicillin/ 875 MG Q12 11/29 2100 AC 12/01 Clavulanate Potassium PO 12/01 2200 1014 Budesonide/ 2 PUF BID 11/27 0900 AC 12/01 Formoterol Fumarate INH 1014 Calcium Carbonate 500 MG DAILY PRN 11/29 1930 AC 11/29 PO 205 Duloxetine HCl 60 MG QPM 11/27 2100 AC 11/30 PO 203 Duloxetine HCl 30 MG QAM 11/27 09 AC 12/01 PO 1015 Gabapentin 100 MG TID 11/27 09 AC 12/01 PO 1014 Insulin Detemir 20 UNITS .STK-MED ONE 11/30 2044 DC SC 11/30 204 Lisinopril 10 MG DAILY 11/29 09 AC 12/01 PO 1013 Omeprazole 40 MG BID 12/01 2100 AC PO Omeprazole 40 MG DAILY AC 12/01 0700 DC 12/01 PO 0548 Ondansetron HCl 4 MG Q6P PRN 11/27 0015 AC 11/28 IV 0825 Pantoprazole Sodium 40 MG BID 11/28 2100 DC 11/30 IV 11/30 2300 2004 Prednisone 40 MG DAILY 11/30 09 DC 12/01 PO 12/01 1000 1014 Tiotropium [place] 1 PUF DAILY 11/27 0900 AC 12/01 INH 1014 Vital Signs & I&O Last 24 Hrs of Vitals and I&O: Vital Signs Date Time Temp Pulse Resp B/P B/P Pulse O2 O2 Flow FiO2 Mean Ox Delivery Rate 12/01 1013 96 138/76 12/01 0849 96 Nasal 2.0L Cannula 12/01 0722 96 12/01 0707 98.9 112 18 138/76 97 12/01 0000 Nasal 2.0L Cannula 11/30 2109 99.2 102 18 140/80 94 Room Air 11/30 2040 92 Room Air 12/01 2003 98.8 103 22 150/80 96 Room Air Room Air 11/30 1600 98.6 90 18 136/76 93 Room Air 11/30 1036 104 140/76 Intake & Output 12/01 1600 12/01 0800 0504 0000 Intake Total 520 Output Total 900 Balance -380 Intake, Oral 520 Number 0 Bowel Movements Output, Urine 900 Patient 200 lb Weight Exam Other Physical Findings: alert and awake nasal cannula lung exam is with rare rhonchi abd soft ext without edema heart exam s1, s2 Results Last 24 Hrs of Lab Results: Laboratory Tests 12/01/17 0645: Anion Gap 7, Estimated GFR > 60, BUN/Creatinine Ratio 22.5, Total Bilirubin 1.1, Direct Bilirubin 0.9 H, AST 120 H, ALT 68 H, Alkaline Phosphatase 238 H, Total Protein 5.3 L, Albumin 2.5 L, CBC w Diff NO MAN DIFF REQ, RBC 2.95 L, MCV 87.2, MCH 28.3, MCHC 32.5 L, RDW 15.4 H, MPV 9.1, Gran % 79.8 H, Lymphocytes % 6.1 L, Monocytes % 14.0 H, Eosinophils % 0.1, Basophils % 0, Absolute Granulocytes 14.3 H, Absolute Lymphocytes 1.1 L, Absolute Monocytes 2.5 H, Absolute Eosinophils 0, Absolute Basophils 0 Impression/Plan Impression/Plan Impression/Plan: Impression 87-year-old woman * Acute blood loss anemia/hematemesis upper GI bleed source most likely secondary to Steffi-Lomeli tear/esophagitis * 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
[2017-12-01] MEDS ORDERED: CIPRO500 M1 PO ×2 (14:33→14:53)
--- NOTE | 2017-12-11 15:19 | Discharge Summary ---
Visit Information Visit Dates Admission Date: 11/26/17 Discharge Date: 12/01/17 Hospital Course Course Attending Physician: Jennifer RAMIREZ,Marco Primary Care Physician: Gege RAMIREZ,[facility] Course: Ms Camargo is a 87 year old woman w/ a PMHx of COPD (1.5 L oxygen), hypertension, recent diagnosis of ischemic colitis and severe diverticulosis (), who was evaluated recently for abnormal liver enzymes and was found to have multiple liver metastases likely primary source-Colon, who eventually got evaluated by Dr. Suazo (hematology/oncology), and underwent liver biopsy which showed moderately differentiated adenocarcinoma (waiting for final IHC stain analysis) came to the hospital with a chief concern of hematemesis after retching, and excessive coughing. At the time of admission-vitals 96.8, pulse rate 128, blood pressure 158/76, 91% on 6 L oxygen. He underwent an emergent upper endoscopy with findings of LA grade a-B esophagitis and possible Steffi-Lomeli tear. Etiology of this large volume hematemesis was unclear, but hiatal hernia with multiple Jona's lesions could've constipated to hematemesis. She was started on Protonix drip and was monitored on intensive care unit. She was admitted to intensive care unit post EGD, for closer monitoring of hemodynamics. Pertinent lab findings during the stay in the ICU: WBC 23.8 (11/26)-->11.2 (11/27)--> 15.1(11/28)-->15.1(11/29)-->16.4(11/30). Hemoglobin 9.9 (11/26)-->8.5 (11/27)-->7.2(11/28) rec'ed PRBCs-->8.8(11/29)-->8.3(11/30). Platelets 312-->192(11/28)-->188(11/29)-->193(11/30) Electrolytes: Sodium 134, potassium 4.2-->3.3(11/30) Renal function: BUN 21, creatinine 1.2(11/26)-->1.0(11/27) INR 1.08. Lactic acid 4.4--2.0--1.6 AST 196(11/26)-->337(11/27)--> 663(11/28)-->417(11/29)-->176(11/30) ALT 51-->77--> 123(11/28)-->104(2)-->82(3) Total bilirubin 0.9 Alkaline phosphatase 290. EGD performed by Dr. Nascimento 11/27/2017. CT abdomen 10/26/17 Fluorine-18 FDG PET/CT Scan whole body 11/08/2017 Repeat EGD done 11/30/17 ( Detailed reports below ) Etiology in her case, is likely due to either an acute tear or esophagitis contributing to hematemesis. She also has liver metastases, this most likely from colon cancer which would make her have abnormal coagulation profile given decreased anti-coagulants such as protein C, protein S etc. In regards to her worsening cough, this could be due to aspiration pneumonitis secondary to hematemesis for which she is currently on unasyn emperically. Problem list : 1. Hematemesis 2. hisotry of COPD 3. Liver mets likely primary Colon 4. History of hypertension 5. Stage 3 CKD Vitals remained stable while she was in the ICU. She received 1 unit of packed red blood cells, when H&H dropped to 7.2. She did not have any further hematemesis, but had occasional scant hemoptysis which was likely due to post EGD, mechanically causing postpharyngeal irritation. She was started on IV Protonix drip, which was transitioned to by mouth. Repeat endoscopy was done confirming a possible Steffi-Lomeli tear and esophagitis. Dr. Nascimento was consulted for advice. In regards to her increasing oxygen requirements, it was found that she may have had aspiration pneumonitis secondary to chemical aspiration. Lung examination revealed rhonchi and rales, and was empirically started on Solu-Medrol for the treatment of COPD. She was also started on Unasyn empirically, although there was no clear evidence of pneumonia in her case. Leukocytosis was thought to be likely reactive, or in response to steroids. Lower respiratory cultures revealed growth of yeast and gram-negative rods, and Unasyn was continued empirically, pending sensitivity results. Blood cultures remain negative for any abnormal growth. Ins and outs were checked daily. She was recently diagnosed with liver masses, likely metastases from colon; that said, recent colonoscopy did not reveal any abnormal findings such as masses or dysplastic lesions. Liver chemistries were followed closely, which were trending down. Dr. Suazo was consulted for advice, who discussed about following up closely after discharge to plan for suitable systemic chemotherapy. Other medical problems included chronic kidney disease, hypertension. Home dose of lisinopril was resumed after hemodynamics stabilized. Dr. Chao was contacted after final culture results were back. It was decided to continue ciprofloxacin for 7 day course. Based on recommendations from gastroenterology, PPI was changed to lansoprazole. Patient was is stable to be discharged with recommendations below. Allergies: Coded Allergies: Penicillins (VAGINAL ITCH 06/11/16) Significant Procedures: Endoscopy Disposition Summary Disposition Principal Diagnosis: GI bleeding, acute blood loss anemia Additional Diagnosis: History of COPD, pneumonia Discharge Disposition: home or self care Discharge Instructions General Discharge Information Code Status: Full Code Patient's Diet: Regular diet Patient's Activity: As tolerated Follow-Up Instructions/Appts: 1. Please see your PCP, Client Support Administrator, Oncologist within a week, and discuss with them about your recent hospitalization. Please check your blood work in one week as instructed for evaluation of anemia. 2. Please follow up with your oncologist regarding the pathology results, and also talk to your cooky packer, if a follow up colonoscopy should be done at a later point. 3. Please return to the ER/call your doctor, if you have any blood in your vomitus. 4. Please take your medications as prescribed. Medications at Discharge Discharge Medications: Stop taking the following medications: Omeprazole (Omeprazole) 20 MG CAPSULE. ORAL TWICE DAILY Qty = 60 Continue taking these medications: Fluticasone/Vilanterol (Breo Ellipta 100-25 Mcg INH) 100 MCG-25 MCG/DOSE BLST.W.DEV 1 PUFF Inhale through mouth Every night Qty = 60 Comments: Last Taken: NOT GIVEN Time: Ipratropium/Albuterol Sulfate (Iprat-Albut 0.5-3(2.5) MG/3 Ml) 0.5 MG-3 MG (2.5 MG BASE)/3 ML AMPUL.NEB 1 VIAL Inhale through mouth THREE TIMES DAILY as needed for SOB Qty = 180 Comments: Last Taken: 04/16/17 Time: 8:30 AM Duloxetine Hydrochloride (Cymbalta) 30 MG CAPSULE.DR 1 Capsule ORAL Every Morning Comments: Last Taken:12/01/17 Time:1000 Duloxetine HCl (Cymbalta) 60 MG CAPSULE.DR 1 Capsule ORAL Every night Comments: Last Taken:11/30/17 Time:2000 Ferrous Sulfate (IRON) 325 MG (65 MG IRON) TABLET 1 Tablet ORAL DAILY Comments: NOT GIVEN Gabapentin (Neurontin) 100 MG CAPSULE 1 Capsule ORAL THREE TIMES DAILY Comments: Last Taken:12/01/17 Time:400 Lisinopril (Lisinopril) 10 MG TABLET 1 Tablet ORAL DAILY Qty = 90 Comments: Last Taken:12/01/12 Time:1000 Start taking the following new medications: Ciprofloxacin HCl (Cipro) 500 MG TABLET 1 Tablet ORAL TWICE DAILY Qty = 14 No Refills Instructions: . Comments: NOT GIVEN Lansoprazole (Prevacid) 30 MG CAPSULE.DR 1 Capsule ORAL TWICE DAILY Qty = 30 No Refills Instructions: . Comments: NOT GIVEN Copies To: Gege RAMIREZ,[facility]; Josie [facility]IRE[facility] Estrada MD,Adelfo Alvarado Attending MD Review Statement Documenting Attending: Jennifer RAMIREZ,Marco
== END 2017-12-01 16:15 | disposition home health service (06) | DRG 368 ==
LOC: ERH 22:52 → ERHI 23:45 → 2NB 23:45 → CRI 23:45 → ENRESERV 11-27 → CRI 11-27 00:35 → ENTRNSPT 11-30 20:25 → EDTRNSPTSTS 11-30 20:43 → EDTRNSPT 11-30 20:43 → 2NB 11-30 21:03 → EDTRNSPT 11-30 21:07 → CMPTRNSPT 11-30 21:07 → 2NB 12-01 09:39 → ENTRNSPT 12-01 15:57 → 2NB 12-01 16:15 → CMPTRNSPT 12-01 16:18
PROVIDERS: Hospitalist; Internal Medicine Endocrinology, Diabetes & Metabolism; Internal Medicine Hematology & Oncology; Pediatrics
PROC: 0DJ08ZZ Inspection of Upper Intestinal Tract, Via Natural or Artificial Opening Endoscopic (ICD-10-PCS; 2017-11-27)
PROC: 0DJD8ZZ Inspection of Lower Intestinal Tract, Via Natural or Artificial Opening Endoscopic (ICD-10-PCS; principal; 2017-11-28)
PROC: 0DB78ZX Excision of Stomach, Pylorus, Via Natural or Artificial Opening Endoscopic, Diagnostic (ICD-10-PCS; 2017-11-28)
PROC: 30233N1 Transfusion of Nonautologous Red Blood Cells into Peripheral Vein, Percutaneous Approach (ICD-10-PCS; 2017-11-28)
DX: K22.6 Gastro-esophageal laceration-hemorrhage syndrome (principal); J96.21 Acute and chronic respiratory failure with hypoxia; J69.0 Pneumonitis due to inhalation of food and vomit; N17.9 Acute kidney failure, unspecified; C78.7 Secondary malignant neoplasm of liver and intrahepatic bile duct; E87.2 Acidosis; E66.01 Morbid (severe) obesity due to excess calories; D62 Acute posthemorrhagic anemia; J44.1 Chronic obstructive pulmonary disease with (acute) exacerbation; K22.10 Ulcer of esophagus without bleeding; C18.9 Malignant neoplasm of colon, unspecified; K57.30 Diverticulosis of large intestine without perforation or abscess without bleeding; Z99.81 Dependence on supplemental oxygen; N18.3 Chronic kidney disease, stage 3 (moderate); K44.9 Diaphragmatic hernia without obstruction or gangrene; I12.9 Hypertensive chronic kidney disease with stage 1 through stage 4 chronic kidney disease, or unspecified chronic kidney disease; Z51.5 Encounter for palliative care; R74.0 Nonspecific elevation of levels of transaminase and lactic acid dehydrogenase [LDH]; Z68.30 Body mass index [BMI] 30.0-30.9, adult; K21.0 Gastro-esophageal reflux disease with esophagitis; J20.8 Acute bronchitis due to other specified organisms; B96.89 Other specified bacterial agents as the cause of diseases classified elsewhere; M54.30 Sciatica, unspecified side; M21.379 Foot drop, unspecified foot; K21.9 Gastro-esophageal reflux disease without esophagitis; Z88.0 Allergy status to penicillin; F41.9 Anxiety disorder, unspecified; D72.829 Elevated white blood cell count, unspecified; Z90.49 Acquired absence of other specified parts of digestive tract
CPT/HCPCS: 2NSBP; CCU; ERO; 36415; 36592; 71045; 81001; 82436; 86920; 87040; 87070; 87071; 87086; 88305; 88312; 93005; 93010; 96374; 97116-GO; 97161-GP; 97530-GO; 99291; J1815; J2405; J2920; J2930; J3490; P9016